=== PATIENT | female | born 1955 | race Caucasian/White ===

== ENCOUNTER → 2024-07-13 | Outpatient (CLI) | payer MEDICARE, MEDICAID, SELFPAY ==
[2024-07-13 15:07] LABS: Collection Type, Urine Clean Catch
[2024-07-13 15:31] LABS: Basophils # (Auto) 0.1 Thou/mm3 (0.0-0.2); Basophils % (Auto) 1 % (0-2.5); Eosinophils # (Auto) 0.1 Thou/mm3 (0.0-0.5); Eosinophils % (Auto) 1 % (0-10); Hematocrit 41.1 % (36.0-46.0); Immature Granulocytes % (Auto) 0 % (0-0); Immature Granulocytes Auto 0.03 Thou/mm3 (0.00-0.00); Lymphocytes # (Auto) 1.5 Thou/mm3 (1.0-4.8); Lymphocytes % (Auto) 19 % (10-50); Mean Corpuscular HGB Conc 31.6 g/dl (31.0-37.0); Mean Corpuscular Hemoglobin 27.9 pg (25.0-35.0); Mean Corpuscular Volume 88 fL (80-100); Monocytes # (Auto) 0.8 Thou/mm3 (0.0-0.8); Monocytes % (Auto) 10 % (0-12); Neutrophils # (Auto) 5.6 Thou/mm3 (1.8-7.7); Neutrophils % (Auto) 69 % (37-80); Nucleated Red Blood Cell % 0 /100 WBC (0); Platelet Count 329 Thou/mm3 (140-440); RDW Standard Deviation 51.1 fL (36.4-46.3); Red Blood Count 4.66 Miln/mm3 (4.00-5.20); White Blood Count 8.1 Thou/mm3 (3.6-11.0)
[2024-07-13 15:36] LABS: Glucose Estimated Average 114 mg/dL (80-131); Hemoglobin A1C 5.6 % Hgb (4.8-6.0); Parathyroid Hormone Intact 102.5 pg/ml (18.5-88.0)
[2024-07-13 15:40] LABS: Vitamin D 25 Hydroxy Total 49.4 ng/mL (7.3-40.2)
[2024-07-13 15:41] LABS: Alanine Aminotransferase 16 U/L (10-49); Albumin, Serum 4.7 gm/dL (3.4-4.8); Albumin/Globulin Ratio 1.6 (1.2-2.2); Alkaline Phosphatase 108 U/L (46-116); Anion Gap 8 (7-16); Aspartate Amino Transferase 20 U/L (0-34); BUN/Creatinine Ratio 13 Ratio (12-20); Bilirubin,Total 0.3 mg/dL (0.3-1.2); Blood Urea Nitrogen 15 mg/dL (9-23); Calcium 10.7 mg/dL (8.3-10.6); Calcium (Corrected) 10.7 mg/dL (8.5-10.1); Carbon Dioxide 24.8 mMol/L (20.0-31.0); Chloride 99 mMol/L (98-107); Cholesterol 150 mg/dL (132-200); Creatinine (Component) 1.2 mg/dL (0.6-1.3); Free T4 (Free Thyroxine) 1.18 ng/dL (0.89-1.76); Glucose 185 mg/dL (74-106); HDL Cholesterol 50 mg/dL (40-60); LDL Cholesterol,Calculated 76 mg/dL (0-130); Osmolality,Calculated 270 (275-295); Phosphorous 3.5 mg/dL (2.4-5.1); Potassium 4.4 mMol/L (3.4-5.1); Sodium 132 mMol/L (136-145); Total Protein 7.7 gm/dL (5.7-8.2); Triglycerides 120 mg/dL (30-150); eGFR 49 See Note
[2024-07-13 16:13] LABS: Bacteria,Urine 1+; Bilirubin,Urine Negative (Negative); Blood,Urine Trace (Negative); Clarity,Urine Turbid (Clear/Hazy); Color,Urine Yellow (Lt Yel-Yel); Glucose, Urine Negative (Negative); Ketones,Urine Negative (Negative); Leukocyte Esterase,Urine Positive (Negative); Nitrite,Urine Negative (Negative); Protein,Urine 2+ (Neg - Trace); RBC,Urine 2 /hpf (0-3); Red Blood Cell Casts,Urine 1 /hpf (0-1); Specific Gravity,Urine 1.011 (1.001-1.035); Squamous Epithelial Cell,Urine 21 /hpf (0-5); Transitional Epi Cells,Urine 4 /hpf (0-5); Urobilinogen,Urine Negative mg/dL (0.0-1.0); WBC,Urine 125 /hpf (0-5)
[2024-07-21 06:36] LABS: T3,Total* 89 ng/dL (76-181)
== END | disposition home or self-care (01) ==
LOC: COPL 14:24
PROVIDERS: PCP Internal Medicine; Referring Provider Internal Medicine Nephrology; Visit Provider Internal Medicine
DX: I12.9 Hypertensive chronic kidney disease with stage 1 through stage 4 chronic kidney disease, or unspecified chronic kidney disease (principal); E11.22 Type 2 diabetes mellitus with diabetic chronic kidney disease; N18.31 Chronic kidney disease, stage 3a; E04.1 Nontoxic single thyroid nodule; E11.65 Type 2 diabetes mellitus with hyperglycemia; E21.3 Hyperparathyroidism, unspecified; E78.00 Pure hypercholesterolemia, unspecified; D75.1 Secondary polycythemia; E55.9 Vitamin D deficiency, unspecified
CPT/HCPCS: 36415; 80053; 80061; 80069; 81001; 82306; 83036; 83970; 84436; 84439; 84443; 84480; 85025

== ENCOUNTER 2024-11-30 10:27 | Inpatient (IN) | payer MEDICARE, MEDICAID, SELFPAY ==
[2024-11-30] VITALS (7 sets, daily range): BP systolic 141–166; BP diastolic 74–89; PULSE 96–102; RESP 18–94; TEMP 36.7–36.8; O2SAT 90–96; BMI 22.5
--- NOTE | 2024-11-30 10:36 | XR_ITS ---
Examination: CT brain head without contrast. 2-D sagittal coronal reconstructions Date and time of exam:November 30, 2024 1046 hours Comparison July 09, 2020 INDICATIONS: Loss of consciousness today CTDI: vol (mGy):47.4 DLP: (mGycm):1103 Technique: Multiple CT axial sections of the brain have been obtained, 5 mm slice thickness. Contrast has not been administered. 2-D sagittal, coronal reconstructions have been obtained Low dose protocols were performed. One or more of the following dose reduction techniques were used; automated exposure control, adjustment of the mA and/or KV according to patient size, use of iterative reconstruction technique. Findings: No significant ventricular enlargement. Intra-axial or extra-axial hemorrhage density is not seen. No mass effect or midline shift Basal cisterns are not remarkable. Fourth ventricle is midline. Cranial vault intact. Impression: Negative for acute hemorrhage, mass effect or midline shift Advise clinical correlation and follow-up accordingly
--- NOTE | 2024-11-30 10:36 | XR_ITS ---
Examination: AP chest single view Technique one AP portable upright chest single view Exam date and time: November 30, 2024, 10:11 AM Comparison January 02, 2019 INDICATIONS: Onset chest pain today FINDINGS: Normal heart size Mild accentuation basilar bronchovascular markings. 3 cm pulmonary mass irregular margins right upper lobe IMPRESSION: Recommend CT chest post intravenous contrast follow-up to confirm 3 cm pulmonary mass right upper lobe, differential would include lung carcinoma
--- NOTE | 2024-11-30 10:36 | EKG_ITS ---
[facility] Test Date: 2024-11-30 Pat Name: LINNEA BUNDY Department: Room: - Gender: Female [employer]: : 1955 Requested By: Maxi Rico Order Number: [id number] Reading MD: Maxi Rico Measurements Intervals [place] Rate: 90 P: 44 KS: 148 QRS: 31 QRSD: 85 T: 62 QT: 364 QTc: 447 Interpretive Statements SINUS RHYTHM Compared to ECG 07/09/2020 18:59:28 No significant changes /store/S0/[id number].pdf
--- NOTE | 2024-11-30 10:59 | PD.EDWEAK ---
ED Weakness RME/HPI General Chief complaint: Weakness Stated complaint: WEAKNESS AND NAUSEA Time Seen by Provider: 11/30/24 10:36 Arrival date/time: 11/30/24 10:27 RME / HPI RME / HPI Narrative: DR. HARPER MAIN ED EVALUATION: 69 year old female presents to the Emergency Department [facility] with complaint of more generalized weakness onset 2 months but worse in the last week. She states that both her legs give out. She mentions that she started taking Ativan last month because they discontinued Prozac. 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 She states that when she is stressed her speech worsens. Patient denies any of the following: cough, runny nose, shortness of breath, chest pain, swallowing problems, nausea, vomiting, diarrhea, or any other symptoms at this time. 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 Has one kidney. Social Hx: Former cigarette smoker, she states she quit when she had her stroke back in 07/09/2020. No alcohol or substance use. Related Data Home Medications ?Medication ?Instructions ?Recorded ?Confirmed alprazolam 1 mg tablet 1 mg PO QID PRN Anxiety 01/02/19 11/30/24 diltiazem HCl 180 mg 180 mg PO QDAY 01/02/19 11/30/24 capsule,extended release 24 hr, controlled fluoxetine 40 mg capsule 40 mg PO QDAY 01/02/19 11/30/24 glyburide 5 mg tablet 5 mg PO BID 01/02/19 11/30/24 losartan 100 mg tablet 100 mg PO QDAY 01/02/19 11/30/24 metformin 1,000 mg tablet 1,000 mg PO BID 01/02/19 11/30/24 prochlorperazine maleate 10 mg 10 mg PO QID PRN Nausea And 01/02/19 11/30/24 tablet Vomiting albuterol sulfate 90 mcg/actuation 2 puff inhalation QID PRN 07/09/20 11/30/24 aerosol inhaler (Ventolin HFA) Shortness Of Breath Or Wheezing diphenoxylate-atropine 2.5 1 tab PO TID PRN Diarrhea 07/09/20 11/30/24 mg-0.025 mg tablet atorvastatin 40 mg tablet 40 mg PO QDAY 07/11/20 11/30/24 vitamin B complex-vitamin C-folic 1 tab PO QDAY 11/30/24 11/30/24 acid 0.8 mg tablet (Nephro-Bella) Previous Rx's ?Medication ?Instructions ?Recorded aspirin 325 mg tablet 325 mg PO QDAY #30 tabs 07/11/20 Allergies Allergy/AdvReac Type Severity Reaction Status Date / Time amlodipine Allergy Verified 07/09/20 23:59 azithromycin Allergy Verified 07/09/20 23:53 hydralazine Allergy Verified 07/09/20 23:59 iodine Allergy Verified 07/10/20 00:00 levofloxacin (From Levaquin) Allergy Verified 07/10/20 00:00 metoprolol Allergy Verified 07/09/20 23:58 nitrofurantoin Allergy Verified 07/10/20 00:01 Penicillins Allergy Verified 07/09/20 23:53 simvastatin Allergy Verified 07/09/20 23:59 fluoroquinolones Allergy Uncoded 07/09/20 23:58 Review of Systems Review of Systems Systems Reviewed: All systems reviewed, normal except as documented Narrative Review of Systems: Constitutional: DENIES: fevers; Eyes: DENIES: loss of vision; Head/Ear/Nose: DENIES: loss of hearing. Throat: DENIES: dysphagia. Cardiovascular: DENIES: chest pain, dyspnea, or syncope. Respiratory: DENIES: shortness of breath; Gastrointestinal: DENIES: rectal bleeding or melena. 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 Allergic/Immunologic: DENIES: urticaria (hives). Past Medical History Past Medical History CARDIAC: Positive Hypertension; Negative Congestive Heart Failure RESPIRATORY: Negative Chronic Obstructive Pulmonary Disease (COPD) GASTROINTESTINAL: Positive Gall Bladder Disease and Hiatal Hernia GENITOURINARY: Negative Renal Disease MUSCULOSKELETAL: Positive Arthritis ENDOCRINE: Positive Diabetes Mellitus Type 2; Negative Diabetes Mellitus Type 1 PSYCHO/SOCIAL: Positive Anxiety OTHER HISTORY: Positive Falls and Blood Transfusion Reaction; Negative Anesthesia Reactions or Chemotherapy Surgical History SURGICAL: Positive Abdominal Surgery, Nephrectomy (right) and Tubal Ligation Social History SMOKING STATUS: Never smoker SUBSTANCE USE: does not use ED Exam Narrative Physical exam: Physical Exam: General: The vital signs were reviewed. The patient is non-toxic, in no apparent distress and appears healthy with a patent airway, no respiratory distress and has no apparent circulatory problems. Head & Scalp: Normocephalic, atraumatic. Face: Appears normal and is without lesions, deformity. Ears: Left external pinna appears normal. Right external pinna appears normal. Eyes: The sclera is anicteric. No obvious photophobia. The Left and Right Orbit/Lid/Conjunctiva appears normal without swelling, discoloration or injection. Nose: The nose is without deformity, discharge or tenderness; Throat: Appears normal. The mucous membranes are pink and moist without exudates, redness or mass seen. The tongue appears normal. Neck: The neck is supple and no apparent mass or adenopathy. Chest: The chest wall is normal in size and symmetry and has no chest wall tenderness or crepitus. The patient displays normal ventilator effort without retractions, accessory muscle use and has adequate air movement bilaterally with no wheezes and no rales. Cardiovascular: Regular rate and rhythm; No murmurs, rubs, or gallops; Gastrointestinal: The abdomen appears normal. No obvious hernias or mass. The abdomen is soft and benign, non-distended, with no pain, no guarding and no rebound tenderness. Bowel sounds are present and normal sounding. No CVA tenderness. Genitourinary: Back/Spine: Normal inspection Extremities/Musculoskeletal/lymphatic: The bilateral upper and lower extremities are warm. There is no evidence of arterial insufficiency. There is no evidence of venous insufficiency/edema. The patient spontaneously moves bilateral upper and lower extremities with no pain and no limitation of movement. There is no apparent, injury or trauma. Skin: The skin is warm, dry and intact. No rashes. No petechia. No purpura. No abnormal bruising. The color is appropriate with no cyanosis. Mental status/Psychiatric: Mental status is appropriate for age. The patient has no apparent delusions, visual hallucinations, no apparent audible hallucinations. The patient has no apparent suicidal thoughts/ideation and no apparent homicidal thoughts/ideation. Neurological: Patient has slurred speech which is chronic from her old stroke. Otherwise: The patient is awake, alert, interactive, cordial, cooperative and is oriented to name and situation. The patient follows commands and answers historical question with no impairment. There is no visual disturbance apparent. The pupils are equal and reactive bilaterally with normal eye movements and no diplopia The bilateral upper and lower extremities have normal strength, normal range of motion and normal functioning. The gait, station and balance not tested due to weakness Course Quality Measures none Orders Category Date Time Status Bedside Blood Glucose NOW Care 11/30/24 10:[address] Screening NOW Care 11/30/24 15:00 Active EKG (ED ONLY) *Do not use* NOW Care 11/30/24 10:[address] chest abdomen pelvis wo Stat Exams 11/30/24 16:[address] head/brain wo con Stat Exams 11/30/24 10:36 Completed EKG (ED Only) Stat Exams 11/30/24 10:36 Draft XR chest 1V portable Stat Exams 11/30/24 10:36 Completed Alcohol, Blood Medical Stat Lab 11/30/24 11:42 Completed Ammonia Stat Lab 11/30/24 11:42 Completed B-Type Natriuretic Peptide Stat Lab 11/30/24 11:04 Completed Blood Culture (Lab) Stat Lab 11/30/24 11:04 Received CBC Stat Lab 11/30/24 11:04 Completed Comprehensive Metabolic Panel Stat Lab 11/30/24 11:42 Completed Drug Screen,Urine Stat Lab 11/30/24 14:07 Completed Lactate (Lactic Acid) Stat Lab 11/30/24 11:04 Completed Lactic Acid, 3 HR Stat Lab 11/30/24 14:43 Completed Procalcitonin Stat Lab 11/30/24 11:42 Completed Prothrombin Time with INR Stat Lab 11/30/24 11:04 Completed Troponin I Stat Lab 11/30/24 11:42 Completed Type and Screen Stat Lab 11/30/24 11:42 Completed Urinalysis Stat Lab 11/30/24 14:07 Completed Urinalysis, C/S if Indicated Stat Lab 11/30/24 14:07 Completed Venous Blood Gas Stat Lab 11/30/24 11:04 Completed Sodium Chloride 0.9% 1000 ml [Ns] 1,000 ml Med 11/30/24 15:00 Active IV 150 mls/hr Sodium Chloride 0.9% 1000 ml [Ns] 1,000 ml Med 11/30/24 15:00 Discontinued IV 999 mls/hr Vital Signs Vital signs: Vital Signs Temperature 98.1 F 11/30/24 10:30 Pulse Rate 102 H 11/30/24 10:30 Respiratory Rate 18 11/30/24 10:30 Blood Pressure 145/74 H 11/30/24 10:30 Pulse Oximetry (%) 95 11/30/24 10:30 Oxygen Delivery Method Room Air 11/30/24 10:30 Weakness MDM Narrative MDM Narrative:: Patient 69-year-old who comes in with progressive weakness over the last month where now her knees are buckling she is fallen twice and is unable to walk with safety. She had no loss of conscious. She has had some nausea. Medical workup for weakness was initiated which revealed the following white count of 10.2 hemoglobin 14.4 MCV of 88 PT 10.4 INR 0.9 venous blood gas pH is 741 pCO2 of 47 sodium 132 potassium 4.3 chloride 100 CO2 was 20.6 BUN 10 creatinine 0.9 lactic acid was initially 3.8 and came down to 1.5 on a follow-up recheck. Ammonia level was negative troponin was negative BNP was negative procalcitonin was negative urinalysis Specimen was negative. Urine drug screen is negative ethyl alcohol is negative head CT revealed no acute. Chest x-ray reveals no pneumonia. The cause of this patient's elevated lactic acid was unclear but it spontaneously improved. Went back to the room patient informs me that many years ago she had a kidney cancer that was had a right nephrectomy. She has been in remission since that time. She incidentally also has a questionable right upper lobe mass age indeterminant. Because it is unclear why she is having progressive weakness and her labs are normal there is no obvious source of infection but get a CT of the chest abdomen pelvis to further evaluate the mass in the right lung and see if there is any evidence of neoplastic issues that may be causing weakness. While clinically she is able to move her arms and legs and there is no obvious focal weakness. It is possible she has some new onset neurological condition has been undiagnosed. Will ambulate the patient and see if she is got her strength back after some fluids and reevaluate after the CAT scan results come back. CTA chest and pelvis with contrast was ordered but we found that she is allergic to contrast was changed with noncontrast scan. CT report reveals>> Patient attempted to ambulate reveals>>> At [address] the [address] test. It is unclear while this patient is too weak to walk CT is still pending as of 1715 hrs. Most likely care of this patient will go to the oncoming doctor to dispo either should be admitted for some neurological etiology for weakness which is uncertain. Will see if the CT gives another answer or she will remain in the ER for intermediate placement. She has started on lorazepam the last month for nighttime sleep unclear how this relates to the current inability to walk with bilateral as she has no sedation in the room at the time of our evaluations. Care to the [address] Bermudez to find a safe dispo plan for this patient she clearly cannot go home at this time she is too weak to walk and unable to care for self. Also the patient has a borderline sinus tachycardia of unclear etiology lactic acid is improving. Deanne Andrews am scribing for and in the presence of Dr. Harper. 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 Has one kidney. How is presenting disease/condition affected by chronic disease/condition?: uneffected by Evaluation data The following diagnostics were reviewed and interpreted by me:: lab results, radiology exam(s) and EKG tracing(s) (EKG#1: EKG at 1204 hours. Interpreted by me: sinus rhythm, rate 90, no STEMI) Lab and/or radiology exams considered but not ordered:: none Interpretation Summary: See above under MDM narrative. RADIOLOGY Procedure(s): XR chest 1V portable Accession Number(s): [id number] cc: Maxi Harper MD; Nato Hong MD~ Examination: AP chest single view Technique one AP portable upright chest single view Exam date and time: November 30, 2024, 10:11 AM Comparison January 02, 2019 INDICATIONS: Onset chest pain today FINDINGS: Normal heart size Mild accentuation basilar bronchovascular markings. 3 cm pulmonary mass irregular margins right upper lobe IMPRESSION: Recommend CT chest post intravenous contrast follow-up to confirm 3 cm pulmonary mass right upper lobe, differential would include lung carcinoma Dictated By: Nato Hong MD Procedure(s): CT head/brain wo con Accession Number(s): [id number] cc: Maxi Harper MD; Nato Hong MD~ Examination: CT brain head without contrast. 2-D sagittal coronal reconstructions Date and time of exam:November 30, 2024 1046 hours Comparison July 09, 2020 INDICATIONS: Loss of consciousness today CTDI: vol (mGy):47.4 DLP: (mGycm):1103 Technique: Multiple CT axial sections of the brain have been obtained, 5 mm slice thickness. Contrast has not been administered. 2-D sagittal, coronal reconstructions have been obtained Low dose protocols were performed. One or more of the following dose reduction techniques were used; automated exposure control, adjustment of the mA and/or KV according to patient size, use of iterative reconstruction technique. Findings: No significant ventricular enlargement. Intra-axial or extra-axial hemorrhage density is not seen. No mass effect or midline shift Basal cisterns are not remarkable. Fourth ventricle is midline. Cranial vault intact. Impression: Negative for acute hemorrhage, mass effect or midline shift Advise clinical correlation and follow-up accordingly Dictated By: Nato Hong MD Medications / Prescriptions Medications or Prescriptions considered but not ordered:: none Medication administrations:: Medication Administration History Sodium Chloride (Ns) 1,000 mls @ 150 mls/hr IV .Q6H40M ONE Stop: 11/30/24 21:39 Discontinued Medications Sodium Chloride (Ns) 1,000 mls @ 999 mls/hr IV .Q1H1M ONE Stop: 11/30/24 16:00 see above if any Consultations Consultation(s) initiated? (list below): Yes Consultation #1 (Physician, Specialty, Details): Discussed test HPI, PMHx, lab, radiology results and/or management with hospitalist Dr. Tyler. Will admit for further evaluation and management. Accepts patient for admission. Time: 17:23 Diagnosis Weakness Differential Diagnosis: acute myocardial infarction, anemia, sepsis and dehydration Most likely diagnosis given after review of the tests above:: See below Admission Indicated Admission indicated?: indicated Admission Request Was there a request for admission?: Yes Admission Attestation Admission request attestation: Discussed case with [] from Hospitalist service regarding admission. Discussed patients ED course, exam findings, labs, and radiology results. The Hospitalist [agrees,declines] to accept the patient for admission. Disposition Plan Disposition Plan: Admit Discharge Plan Prescriptions/Referrals Prescriptions/Med Rec: No Action fluoxetine 40 mg Capsule 40 mg PO QDAY glyburide 5 mg Tablet 5 mg PO BID alprazolam 1 mg Tablet 1 mg PO QID PRN (Reason: Anxiety) prochlorperazine maleate 10 mg Tablet 10 mg PO QID PRN (Reason: Nausea And Vomiting) metformin 1,000 mg Tablet 1,000 mg PO BID losartan 100 mg Tablet 100 mg PO QDAY diltiazem HCl 180 mg Capsule,Ext.Rel 24h Degradable 180 mg PO QDAY Rx Instructions: diltiazem cd albuterol sulfate [Ventolin HFA] 90 mcg/actuation Hfa Aerosol Inhaler 2 puff INHALATION QID PRN (Reason: Shortness Of Breath Or Wheezing) diphenoxylate-atropine 2.5-0.025 mg Tablet 1 tab PO TID PRN (Reason: Diarrhea) aspirin 325 mg tablet 325 mg PO QDAY Qty: 30 0RF atorvastatin 40 mg tablet 40 mg PO QDAY Nephro-Bella 0.8 mg tablet 1 tab PO QDAY Referrals: No Primary/Family,Physician [Primary Care Provider] - In 1 week Problem List Clinical Impression: Weakness, Unable to ambulate, History of CVA in adulthood, Elevated lactic acid level, Sinus tachycardia Patient/Caregiver Discharge Instructions Print Language: Mauritanian
[2024-11-30 11:15] LABS: Base Excess, Venous -1 (-3-3); O2 Saturation, Venous 82 % (96-97); PCO2, Venous 37 mmHg (36-56); PO2, Venous 43 mmHg (15-58); pH, Venous 7.41 (7.33-7.66)
[2024-11-30 11:17] LABS: Basophils # (Auto) 0.1 Thou/mm3 (0.0-0.2); Basophils % (Auto) 1 % (0-2.5); Eosinophils % (Auto) 0 % (0-10); Hematocrit 42.1 % (36.0-46.0); Hemoglobin 14.4 g/dL (12.0-16.0); Immature Granulocytes % (Auto) 0 % (0-0); Immature Granulocytes Auto 0.04 Thou/mm3 (0.00-0.00); Lymphocytes # (Auto) 1.3 Thou/mm3 (1.0-4.8); Lymphocytes % (Auto) 12 % (10-50); Mean Corpuscular HGB Conc 34.2 g/dl (31.0-37.0); Mean Corpuscular Volume 88 fL (80-100); Monocytes # (Auto) 0.9 Thou/mm3 (0.0-0.8); Monocytes % (Auto) 8 % (0-12); Neutrophils % (Auto) 78 % (37-80); Nucleated Red Blood Cell % 0 /100 WBC (0); Platelet Count 347 Thou/mm3 (140-440); RDW Standard Deviation 42.9 fL (36.4-46.3); White Blood Count 10.2 Thou/mm3 (3.6-11.0)
[2024-11-30 11:32] LABS: INR 0.9 (0.9-1.3); Prothrombin Time 10.4 Seconds (9.0-12.2)
[2024-11-30 12:17] LABS: Ammonia < 10 uMol/L (11-32)
[2024-11-30 12:21] LABS: Alanine Aminotransferase 21 U/L (10-49); Albumin, Serum 4.6 gm/dL (3.4-4.8); Albumin/Globulin Ratio 1.6 (1.2-2.2); Alcohol, Blood Medical < 3.0 mg/dL (0-10.0); Alkaline Phosphatase 81 U/L (46-116); Anion Gap 11 (7-16); Aspartate Amino Transferase 25 U/L (0-34); BUN/Creatinine Ratio 11 Ratio (12-20); Bilirubin,Total 0.5 mg/dL (0.3-1.2); Blood Urea Nitrogen 10 mg/dL (9-23); Calcium 10.4 mg/dL (8.3-10.6); Calcium (Corrected) 10.4 mg/dL (8.5-10.1); Carbon Dioxide 20.6 mMol/L (20.0-31.0); Chloride 100 mMol/L (98-107); Creatinine (Component) 0.9 mg/dL (0.6-1.3); Estimated Creatinine Clearance 59.5 mL/min (>60); Globulin 2.9 gm/dL (2.3-3.5); Glucose 133 mg/dL (74-106); Osmolality,Calculated 265 (275-295); Potassium 4.3 mMol/L (3.4-5.1); Procalcitonin 0.11 ng/ml (0.0-0.49); Sodium 132 mMol/L (136-145); Total Protein 7.5 gm/dL (5.7-8.2); Troponin I < 0.020 ng/mL (0.0-0.045); eGFR > 60 See Note
[2024-11-30 12:33] LABS: Lactate (Lactic Acid) 3.8 mMol/L (0.4-2.0)
[2024-11-30 13:07] LABS: B-Type Natriuretic Peptide 20 pg/mL (0-100)
[2024-11-30 14:13] LABS: Collection Type, Urine Clean Catch
[2024-11-30 14:21] LABS: Bilirubin,Urine Negative (Negative); Blood,Urine Negative (Negative); Clarity,Urine Clear (Clear/Hazy); Color,Urine Lt-Yellow (Lt Yel-Yel); Culture Indicated,Urine Not Indicated; Glucose, Urine Negative (Negative); Ketones,Urine Negative (Negative); Leukocyte Esterase,Urine Negative (Negative); Nitrite,Urine Negative (Negative); Protein,Urine 2+ (Neg - Trace); RBC,Urine 1 /hpf (0-3); Specific Gravity,Urine 1.008 (1.001-1.035); Squamous Epithelial Cell,Urine 1 /hpf (0-5); Urobilinogen,Urine Negative mg/dL (0.0-1.0); WBC,Urine 1 /hpf (0-5)
[2024-11-30 14:32] LABS: Reflex Lactate? Y
[2024-11-30 14:41] LABS: Amphetamine/Methamp Scrn,U Negative (Negative); Barbiturate Screen,Urine Negative (Negative); Benzodiazepines Screen,Urine Negative (Negative); Benzoylecgonine Screen, Ur Negative (Negative); Fentanyl Screen,Urine Negative (Negative); Opiate Screen,Urine Negative (Negative); THC Screen,Urine Negative (Negative)
[2024-11-30 14:56] LABS: Lactic Acid, 3 HR 1.5 mMol/L (0.4-2.0)
--- NOTE | 2024-11-30 16:48 | XR_ITS ---
Examination: CT chest, without intravenous contrast. CT abdomen, without intravenous contrast. CT pelvis, without intravenous contrast. 2-D sagittal and coronal reconstructions. 3-D reconstructions. Date and time of exam:November 30, 2024 at 1749 hours INDICATIONS: Abdominal pain, weakness in the legs 3 months, history right renal cell carcinoma post nephrectomy, chest pain today, 3 cm pulmonary mass in the right upper lobe on chest x-ray today CTDI vol (mgy) 8.47 DLP (MGycm)597 Technique: Multiple CT images, 3.0 mm slice thickness, obtained chest, abdomen, pelvis, with the high-resolution 64 slice scanner.. Sagittal and coronal 2-D reconstructions are obtained. 3-D reconstructions Low dose protocols were performed. One or more of the following dose reduction techniques were used; automated exposure control, adjustment of the mA and/or KV according to patient size, use of iterative reconstruction technique. Findings: 3 cm enlarged right tracheobronchial lymph node 12 mm lymph node in the aortopulmonary window Mild enlargement cardiac contour Small pericardial effusion 3.4 cm pulmonary mass in the right upper lobe, spiculated margins, axial image 113, 12 mm pulmonary nodule left lower lobe axial image 162 8mm pulmonary nodule right lower lobe image 210 No lobar pneumonia No visualized liver or splenic lesion Absent gallbladder Minimal nodular thickening left adrenal gland 2 mm 4 mm 2 mm left renal calculi No solid left renal mass lesion Absent right kidney Aortic calcification no aneurysmal dilatation Normal appendix No bowel obstruction Atrophic uterus Urinary bladder are intact Grade 1 and spondylolisthesis L4 on L5 Prominent osteopenia IMPRESSION: Tumor mediastinal lymphadenopathy. Pulmonary lung masses, the largest 3.4 cm in the right upper lobe, highest on the differential list is lung carcinoma with metastatic mediastinal lymphadenopathy Nonobstructing left renal calculi
[2024-11-30] MEDS: SODIUM CHLORIDE 0.9% 1000 ML 1,000 ML 999 ML IV (18:25)
[2024-11-30] MEDS: SODIUM CHLORIDE 0.9% 1000 ML 1,000 ML 150 ML IV (18:29)
[2024-11-30 19:03] LABS: Creatine Kinase 40 U/L (34-171); Magnesium 1.5 mg/dL (1.6-2.6); Phosphorous 3.2 mg/dL (2.4-5.1); Thyroid Stimulating Hormone 0.48 uIU/mL (0.55-4.78)
[2024-11-30] MEDS: PANTOPRAZOLE INJ 40 MG VIAL IVP (19:15)
--- NOTE | 2024-11-30 19:30 | PC.NURSE ---
Report called n given to Ryan CROCKER.
[2024-11-30] MEDS: ATORVASTATIN CALCIUM 20 MG TABLET 40 MG PO (20:38)
[2024-11-30] MEDS: HEPARIN SOD INJ 5000 UNIT/ML VIAL SC (20:38)
--- NOTE | 2024-11-30 20:52 | ESHP_ITS ---
<Statement entered by Efren Woodward MD - 11/30/24 21:30> This patient is a 69-year-old female with past medical history of thyroid nodules, CVA without residual deficit on aspirin, breast lumpectomy in the past, right kidney removal due to RCC presented to the ED with generalized weakness and lower extremity progressive weakness. She mentioned that she was taking Prozac and her anxiety was not getting controlled therefore her PCP added Ativan recently. This morning, patient fell and her legs gave out and has been feeling weak. Of note, patient has a history of possible infection 2 weeks ago likely abdominal. She does have a history of chronic slurred speech. Labs showed stable white count. Chemistry panel showed mild hyponatremia. Kidney functions unremarkable. Lactic acid initially was elevated down trended to 1.5. Magnesium 1.5. Creatinine kinase unremarkable. TSH 0.48. PTH intact was ordered due to elevated corrected calcium at 10.4. Head CT showed no acute changes. CT chest and chest x-ray was concerning for pulmonary lung masses largest 3.4 cm right upper lobe. Multiple nodules. Small pericardial effusion. Patient is agreeable to for biopsy of the lung if needed. She also was found to have grade 1 spondylolisthesis L4 on L5. We admit the patient for workup of bilateral lower extremity weakness. PT evaluation has been ordered. Neurology has been consulted. Will likely follow-up with MRI brain per neurology recommendations. Home medications were reconciled. MRI lumbar spine was ordered to evaluate compression of the spine. Will likely follow-up with neurology recommendations. Orthostatic vitals were ordered. Held morning heparin for possible biopsy of lung tomorrow morning.All labs and orders were reviewed. I saw and examined the patient, and I agree with current management stated by Dr Hakan MD,PGY1. Plan of care was discussed with the attending physician and resident physician. Disclaimer: Despite multiple revisions, due to the dictation software being used, the document bellow may not be free of grammatical errors including phonetic/typographic errors. However, this does not deter from our commitment to providing health care in the patient's best interest in mind. Dr. Nona MD, PGY 2 Documentation for date of: 11/30/24 HPI History of Present Illness History of present illness: Ms. Vega is a 69-year-old female medical history significant for hypertension, hyperlipidemia, COPD, type 2 diabetes, history of renal cell carcinoma status post right nephrectomy, history of ischemic stroke in 2020 presents to the ED complaining of progressive bilateral weakness in lower extremities for the past 2 weeks and has been using a walker for 2 weeks. Patient states that for the past 1 week it has worsened to the point where she had 2 ground-level falls. Patient states that she feels like her legs gave up on her and she loses her balance, denies syncopal episodes or dizziness. Patient states that when she gets really anxious she also experiences slurred speech and this is is a residual deficit from her stroke. Patient also states that she was on Prozac for a while which she was experiencing a lot of side effects so her primary care switched her to Ativan 0.5 mg about 2 to 3 weeks ago. Patient states she has a history of right renal cell carcinoma and she underwent right nephrectomy, also found a benign mass in the left breast status post lumpectomy, and thyroid nodules that were biopsied and findings were benign. 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 ED course In the ED initial vitals include blood pressure 145/74, pulse 102, respirations 18 CBC is unremarkable, VBG is within normal limits CMP: Sodium 132, glucose 133, lactic acid 3.8 repeat lactic acid is 1.5, calcium 10.4, magnesium 1.5, TSH 0.48 Chest x-ray: 3 cm pulmonary mass in the right upper lobe CT of head: Negative for acute hemorrhage, mass effect or midline shift CT chest/abdomen/pelvis: Pulmonary lung masses, the largest 3.4 cm in the right upper lobe, highest on the differential list is lung carcinoma with metastatic mediastinal lymphadenopathy, 4, 2, 2 mm renal calculi 12mm pulmonary nodule in the left lower lobe and 8mm pulmonary nodule in the right lower lobe EKG: Normal sinus rhythm In the ED pt received 2L NS PMH: Hypertension, hyperlipidemia, COPD, type 2 diabetes, history of right renal carcinoma, history of ischemic CVA PSH: Right nephrectomy, left breast lumpectomy SH: Quit smoking cigarettes in 2019, denies drugs or alcohol Home Meds: Diltiazem, Trelegy, aspirin 81 mg, Ativan 0.5 mg at bedtime, atorvastatin, losartan and, metformin and 1000 mg twice daily, glyburide 5mg BID Review of Systems Review of Systems Systems Reviewed: All systems reviewed, normal except as documented Exam Vital Signs Temp Pulse Resp BP Pulse Ox O2 Del Method 98.3 F 101 H 24 H 166/89 H 92 L Room Air 11/30/24 18:39 11/30/24 18:39 11/30/24 18:39 11/30/24 18:39 11/30/24 18:39 11/30/24 18:39 Narrative Exam GENERAL: A&Ox3 . Awake, Not in acute distress NEURO: no focal neurological deficits HEENT: Atraumatic, Normocephalic. mucous membranes moist. Eyes open, symmetrical, & clear HEART: Normal Heart Sounds LUNGS: Clear to auscultation with no wheezing or crackles. ABDOMEN: soft, non-distended, non-tender, bowel sounds heard, no guarding or rebound tenderness SKIN: No Rash or ecchymoses EXTREMITIES: No edema, tenderness, able to move all 4 extremities, pedal pulses palpated Results: Labs 12/01/24 05:17 12/01/24 05:17 Labs: Short CBC 11/30/24 Range/Units 11:04 WBC 10.2 (3.6-11.0) Thou/mm3 Hgb 14.4 (12.0-16.0) g/dL Hct 42.1 (36.0-46.0) % Plt Count 347 (140-440) Thou/mm3 BMP 11/30/24 11:42 Sodium 132 L Potassium 4.3 Chloride 100 Carbon Dioxide 20.6 BUN 10 Creatinine 0.9 Glucose 133 H Calcium 10.4 Cardiac Enzymes 11/30/24 11/30/24 Range/Units 11:42 18:05 Total Creatine Kinase 40 (34-171) U/L Troponin I < 0.020 (0.0-0.045) ng/mL Liver Function 11/30/24 Range/Units 11:42 Total Bilirubin 0.5 (0.3-1.2) mg/dL AST 25 (0-34) U/L ALT 21 (10-49) U/L Alkaline Phosphatase 81 (46-116) U/L Albumin 4.6 (3.4-4.8) gm/dL Urine 11/30/24 Range/Units 14:07 Urine Color Lt-Yellow (Lt Yel-Yel) Urine Clarity Clear (Clear/Hazy) Urine pH 6.0 (5.0-7.0) Ur Specific [place] 1.008 (1.001-1.035) Urine Protein 2+ A (Neg - Trace) Urine Glucose (UA) Negative (Negative) ABG Interpretation ABG results: 11/30/24 11:04 VBG pH 7.41 VBG pCO2 37 VBG pO2 43 VBG Base Excess -1 Quality Measures Quality Measures none Advance care planning discussed with:: patient Medications Home Medications and Allergies Home Medications ?Medication ?Instructions ?Recorded ?Confirmed ?Type diltiazem HCl 180 mg 180 mg PO QDAY 01/02/1911/08 History capsule,extended release 24 hr, controlled fluoxetine 40 mg capsule 40 mg PO QDAY 01/02/1911/30 History glyburide 5 mg tablet 5 mg PO BID 01/02/19 5 History metformin 1,000 mg tablet 1,000 mg PO BID 01/02/19 History prochlorperazine maleate 10 mg 10 mg PO QDAY PRN Nause a And 01/02/19 12/01/24 History tablet Vomiting atorvastatin 40 mg tablet 40 mg PO QDAY 07/11/2011/30 History vitamin B complex-vitamin C-folic 1 tab PO QDAY 11/30/24 History acid 0.8 mg tablet (Nephro-Bella) amlodipine 10 mg tablet 10 mg PO QDAY 12/01/2412/01 History aspirin 81 mg tablet,delayed 81 mg PO QDAY 12/01/24 History release (Adult Low Dose Aspirin) fluticasone fur. 200 mcg-umeclid 1 inh inhalation QDAY 12/01/24 12/01/24 History 62.5 mcg-vilant 25 mcg inhalat.powder (Trelegy Ellipta) fluticasone propionate 50 1 spray intranasal Q12H PRN nasal 12/01/24 12/01/24 History mcg/actuation nasal congestion spray,suspension loratadine 10 mg tablet (Allergy 10 mg PO QDAY PRN all ergic symptoms 12/01/24 12/01/24 History Relief (loratadine)) lorazepam 0.5 mg tablet 0.5 mg PO HS PRN anxiety 12/01/24 History montelukast 10 mg tablet 10 mg PO QDAY 12/01/2412/01 History Allergies Allergy/AdvReac Type Severity Reaction Status Date / Time amlodipine Allergy Verified 07/09/20 23:59 azithromycin Allergy Verified 07/09/20 23:53 hydralazine Allergy Verified 07/09/20 23:59 iodine Allergy Verified 07/10/20 00:00 levofloxacin (From Levaquin) Allergy Verified 07/10/20 00:00 metoprolol Allergy Verified 07/09/20 23:58 nitrofurantoin Allergy Verified 07/10/20 00:01 Penicillins Allergy Verified 07/09/20 23:53 simvastatin Allergy Verified 07/09/20 23:59 fluoroquinolones Allergy Uncoded 07/09/20 23:58 Visit Medications Acetaminophen (Acetaminophen 325 Mg Tablet) 650 mg PO Q6H PRN PRN Reason: Fever >100.4 Stop: 12/30/24 17:53 Acetaminophen (Acetaminophen 325 Mg Tablet) 650 mg PO Q6H PRN PRN Reason: PAIN SCALE 1-3 (mild Stop: 12/30/24 17:53 Alprazolam (Alprazolam 0.25 Mg Tablet) 1 mg PO QID PRN PRN Reason: Anxiety Stop: 12/05/24 17:58 Aspirin (Aspirin 325 Mg Tablet) 325 mg PO QDAY [facility]AI Stop: 12/31/24 08:59 Atorvastatin Calcium (Atorvastatin Calcium 20 Mg Tablet) 40 mg PO HS TAI Stop: 12/30/24 20:59 Last Admin: 11/30/24 20:38 Dose: 40 mg Diltiazem HCl (Diltiazem Cd 180 Mg Capcr) 180 mg PO QDAY [facility]AI Stop: 12/31/24 08:59 Fluoxetine HCl (Fluoxetine Hcl 10 Mg Capsule) 40 mg PO QDAY [facility]AI Stop: 12/31/24 08:59 Heparin Sodium (Porcine) (Heparin Sod Inj 5000 Unit/Ml Vial) 5,000 unit SC BID TAI Stop: 12/14/24 20:59 Last Admin: 11/30/24 20:38 Dose: 5,000 unit Sodium Chloride (Ns) 1,000 mls @ 150 mls/hr IV .Q6H40M ONE Stop: 11/30/24 21:39 Last Admin: 11/30/24 18:29 Dose: 150 mls/hr Losartan Potassium (Losartan Potassium 25 Mg Tablet) 100 mg PO QDAY [facility] Stop: 12/31/24 08:59 Ondansetron HCl (Ondansetron Inj 2 Mg/Ml Inj 2 Ml) 4 mg IV Q6H PRN; Protocol PRN Reason: NAUSEA OR VOMITING Stop: 12/30/24 17:53 Pantoprazole Sodium (Pantoprazole Inj 40 Mg Vial) 40 mg IVP QDAY [facility] Stop: 12/30/24 17:59 Last Admin: 11/30/24 19:15 Dose: 40 mg Vitamin B Complex/Vit C/Folic Acid (Vit B12/Vit C/Fa (Nephrovite) Tablet) 1 tab PO QDAY [facility] Stop: 12/31/24 08:59 Discontinued Medications Sodium Chloride (Ns) 1,000 mls @ 999 mls/hr IV .Q1H1M ONE Stop: 11/30/24 16:00 Last Admin: 11/30/24 18:25 Dose: 999 mls/hr Losartan Potassium (Losartan Potassium 25 Mg Tablet) 100 mg PO QDAY [facility] Stop: 12/31/24 08:59 Assessment & Plan Plan Ms. Vega is a 69-year-old female medical history significant for hypertension, hyperlipidemia, COPD, type 2 diabetes, history of renal cell carcinoma status post right nephrectomy, history of ischemic stroke in 2019 presents to the ED complaining of progressive bilateral weakness in lower extremities for the past 2 weeks and has been using a walker for 2 weeks. #Lower extremities weakness, bilateral DDX: GBS, spinal stenosis, deconditioning, medication induced -although patient did not have recent URI or diarrhea like symptoms, pt has cough 2 weeks ago that resolved spontaneously -Pt starting taking ativan 2-3 weeks ago at night and pt had a fall due to legs giving up at night -CT of head is negative for hemorrhage, mass affect or midline shift Plan: -neurology consulted, appreciate recommendations -MRI or brain ordered #Pulmonary nodules, bilateral #hx. of renal cell carcinoma s/p R. nephrectomy - Pt has history of right renal cell carcinoma and underwent right nephrectomy without radiation or chemo -Pt was found to have benign thyroid and left breast nodules -CT chest/abdomen/pelvis: Pulmonary lung masses, the largest 3.4 cm in the right upper lobe, highest on the differential list is lung carcinoma with metastatic mediastinal lymphadenopathy, 12mm pulmonary nodule in the left lower lobe and 8mm pulmonary nodule in the right lower lobe Plan: -will discuss with pt about biopsy #Primary hypertension #Hyperlipidemia -resumed home antihypertensive include diltiazem 180mg and Losartan 100mg daily -Resumed home atorvastatin #Non Insulin dependent type 2 diabetes -Pt's home medications include metformin 1000mg BID and glyburide 5 mg BID -Insulin sliding scale ordered with accuchecks ACHS -A1c ordered for morning labs # Hx. of acute CVA -Pt had ischemic stroke in 07/2020 without residual deficits otherthan when she gets anxious she has slurred speech. -Pt takes statin and aspirin daily -resumed home aspirin #Hx of COPD -Pt is a former smoker and does not use home oxygen -Pt uses trelegy inhaler once daily -Duonebs ordered PRN -Supplemental O2 as needed Health Maintenance Disposition: telemetry DVT Prophylaxis: Heparin 5000 units SC Q8 hrs GI Prophylaxis: Pantoprozol-40 IV Qday Diet: Diabetic Diet Lines: Peripheral lines Code status: Full Assessment and plan discussed with my senior resident Dr. Woodward & attending physician Dr. Jayson Mcclendon (PGY-1)- Internal medicine resident Attending Provider Attestation/Addendum I have discussed and was present for the essential components of the history, physical examination, diagnosis, and treatment plan with the resident. I agree with the patient's care as documented by the resident and amended herein by me. Wale Tyler DO. Patient seen and evaluated in ED. In short, 69-year-old female with significant past medical history of CVA, hypertension, hyperlipidemia, type 2 diabetes, renal cell carcinoma status post right nephrectomy, panic disorder, left radial nerve palsy and thyroid nodules, presented to the ED for progressive bilateral lower extremity weakness over the past 2 to 4 weeks and according to her, more frequent falls. Aside from the weakness, she denied any incontinence, sensory deficits, syncopal episodes, dizziness, vision trouble etc. He does have some slurred speech according to her from her previous ischemic stroke in 2019. 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 In the ED, BP WNL, pulse 101, respiratory rate 21, afebrile, SpO2 was 90% on room air however did improve. CBC largely unremarkable, sodium noted to be 132, lactic acid was 3.8 at time of arrival however did downtrend to 1.5 with fluids. Calcium slightly elevated at 10.4. VBG unremarkable, U tox unremarkable, CT head did not demonstrate any acute intracranial pathology. Chest x-ray did however demonstrate a possible right upper lobe pulmonary mass in which a CT chest is pending however this is without contrast due to the patient's iodine allergies. Please note the patient has multiple allergies which can be seen on her allergy list to various medications. At this time we will admit the patient to telemetry for her bilateral lower extremity weakness in which she was unable to satisfactorily ambulate in the emergency department, also her elevated lactic acid is of unknown etiology at this time. Neurology has been consulted, we will also order an MRI of her lumbar spine and possibly brain depending on neuro recommendations. Will also follow-up with the CT scan of her chest, may warrant biopsy if it indeed is characterized as a mass. Will replete electrolytes as necessary, will order physical therapy as well, urinalysis is also ordered and will be followed up on. Although this document has been carefully reviewed, there may still be some phonetic and other typographical errors. These errors are purely grammatical due to imperfections in the software program and should not be construed in any way to compromise the substance of the patient's medical care during this visit.
[2024-11-30] MEDS: LORazepam 0.5 MG TABLET PO (22:12)
[2024-11-30] MEDS: Magnesium Sulfate 4 GM Ivpb 4 GM/50 ML BAG IV (22:12)
[2024-11-30 22:32] LABS: Parathyroid Hormone Intact 73.1 pg/ml (18.5-88.0)
--- NOTE | 2024-11-30 23:56 | PD.NEUROCONS ---
History of Present Illness Data of Consult Requesting Physician: Tai Tyler DO Primary Care Provider: Physician No Primary/Family Consult Narrative cc:: cc: Tai Tyler DO Review of Systems Review of Systems Systems Reviewed: All systems reviewed, normal except as documented Past Medical History Past Medical History CARDIAC: Positive Hypertension; Negative Congestive Heart Failure RESPIRATORY: Negative Chronic Obstructive Pulmonary Disease (COPD) GASTROINTESTINAL: Positive Gall Bladder Disease and Hiatal Hernia GENITOURINARY: Negative Renal Disease MUSCULOSKELETAL: Positive Arthritis ENDOCRINE: Positive Diabetes Mellitus Type 2; Negative Diabetes Mellitus Type 1 PSYCHO/SOCIAL: Positive Anxiety OTHER HISTORY: Positive Falls and Blood Transfusion Reaction; Negative Anesthesia Reactions or Chemotherapy Surgical History SURGICAL: Positive Abdominal Surgery, Nephrectomy (right) and Tubal Ligation Social History SMOKING STATUS: Never smoker SUBSTANCE USE: does not use Meds Home Medications and Allergies Home Medications ?Medication ?Instructions ?Recorded ?Confirmed ?Type alprazolam 1 mg tablet 1 mg PO QID PRN Anxiety 01/02/19 11/30/24 History diltiazem HCl 180 mg 180 mg PO QDAY 01/02/19 11/30/24 History capsule,extended release 24 hr, controlled fluoxetine 40 mg capsule 40 mg PO QDAY 01/02/19 11/30/24 History glyburide 5 mg tablet 5 mg PO BID 01/02/19 11/30/24 History losartan 100 mg tablet 100 mg PO QDAY 01/02/19 11/30/24 History metformin 1,000 mg tablet 1,000 mg PO BID 01/02/19 11/30/24 History prochlorperazine maleate 10 mg 10 mg PO QID PRN Nausea And 01/02/19 11/30/24 History tablet Vomiting albuterol sulfate 90 mcg/actuation 2 puff inhalation QID PRN 07/09/20 11/30/24 History aerosol inhaler (Ventolin HFA) Shortness Of Breath Or Wheezing diphenoxylate-atropine 2.5 1 tab PO TID PRN Diarrhea 07/09/20 11/30/24 History mg-0.025 mg tablet atorvastatin 40 mg tablet 40 mg PO QDAY 07/11/20 11/30/24 History vitamin B complex-vitamin C-folic 1 tab PO QDAY 11/30/24 11/30/24 History acid 0.8 mg tablet (Nephro-Bella) Allergies Allergy/AdvReac Type Severity Reaction Status Date / Time amlodipine Allergy Verified 07/09/20 23:59 azithromycin Allergy Verified 07/09/20 23:53 hydralazine Allergy Verified 07/09/20 23:59 iodine Allergy Verified 07/10/20 00:00 levofloxacin (From Levaquin) Allergy Verified 07/10/20 00:00 metoprolol Allergy Verified 07/09/20 23:58 nitrofurantoin Allergy Verified 07/10/20 00:01 Penicillins Allergy Verified 07/09/20 23:53 simvastatin Allergy Verified 07/09/20 23:59 fluoroquinolones Allergy Uncoded 07/09/20 23:58 Exam - Neurology Vital Signs Temp Pulse Resp BP Pulse Ox O2 Del Method 98.0 F 99 22 H 147/89 H 94 L Room Air 11/30/24 20:00 11/30/24 21:35 11/30/24 21:35 11/30/24 20:00 11/30/24 21:35 11/30/24 20:00 Narrative Exam GENERAL APPEARANCE: Well hydrated, well-nourished in no acute distress. HEENT: Normocephalic, atraumatic, extraocular movements intact. Pupils: Equal reacting to light and accommodation NECK: Supple, no JVD or bruits. CARDIOVASULAR: Heart: S1, S2 heard, regular without S3-S4 or murmur no rubs or gallops. LUNGS/CHEST: Clear to auscultation bilaterally. No rails, rhonchi, or wheezing. Normal inspection. ABDOMEN: Soft, nontender, with normal bowel sounds. No pulsatile masses. No rebound, rigidity, or guarding. Normal inspection and palpation. EXTREMITIES: Normal inspection and palpation. No edema, clubbing or cyanosis. SKIN: Warm and dry without rashes. Normal inspection. MUSCULOSKELETAL: No cervical, thoracic, lumbar or midline bony tenderness. Normal inspection. NEURO: Alert, awake and oriented x3. Cranial nerves: II through XII grossly intact. Speech and language: Normal with no dysarthria or dysphasia. Motor system: Tone and bulk: Normal: Strength: 5 out of 5 in all 4 extremities; No pronator drift noted. Deep tendon reflexes: 2+ bilaterally symmetrical. Plantar reflex: Downgoing bilaterally. Sensory system: Intact to all modalities of sensation bilaterally. Coordination: Intact to [id number] and wbpb-[id number] test bilaterally. No ataxia, no dysmetria, or dysdiadochokinesia noted. No intention tremors noted. Gait: Not tested. No signs of meningeal irritation noted. PSYCHIATRIC: Normal mood and affect. Results Labs 12/01/24 05:17 12/01/24 05:17 Labs: Short CBC 11/30/24 Range/Units 11:04 WBC 10.2 (3.6-11.0) Thou/mm3 Hgb 14.4 (12.0-16.0) g/dL Hct 42.1 (36.0-46.0) % Plt Count 347 (140-440) Thou/mm3 BMP 11/30/24 11:42 Sodium 132 L Potassium 4.3 Chloride 100 Carbon Dioxide 20.6 BUN 10 Creatinine 0.9 Glucose 133 H Calcium 10.4 Cardiac Enzymes 11/30/24 11/30/24 Range/Units 11:42 18:05 Total Creatine Kinase 40 (34-171) U/L Troponin I < 0.020 (0.0-0.045) ng/mL Liver Function 11/30/24 Range/Units 11:42 Total Bilirubin 0.5 (0.3-1.2) mg/dL AST 25 (0-34) U/L ALT 21 (10-49) U/L Alkaline Phosphatase 81 (46-116) U/L Albumin 4.6 (3.4-4.8) gm/dL Urine 11/30/24 Range/Units 14:07 Urine Color Lt-Yellow (Lt Yel-Yel) Urine Clarity Clear (Clear/Hazy) Urine pH 6.0 (5.0-7.0) Ur Specific [place] 1.008 (1.001-1.035) Urine Protein 2+ A (Neg - Trace) Urine Glucose (UA) Negative (Negative) ABG Interpretation ABG results: 11/30/24 11:04 VBG pH 7.41 VBG pCO2 37 VBG pO2 43 VBG Base Excess -1 Assessment & Plan Assessment and plan (1) Generalized weakness: Status: Acute Assessment and plan: Will check B12, vitamin D She would need EMG nerve conduction study of both upper and lower extremities to evaluate further as an outpatient. Physical therapy evaluation for ambulation safety (2) Hypertension: Status: Chronic Assessment and plan: Continue home meds (3) Diabetes mellitus: Status: Chronic Assessment and plan: Continue to check fingerstick glucose and follow sliding scale insulin per protocol Additional Assessment & Plan Additional Plan: As the MRI is negative for acute infarction, patient is stable for discharge home and will need EMG and nerve conduction study of both upper extremities to evaluate further for radial nerve injury. She is advised to take B complex vitamin to promote nerve regeneration.
[2024-12-01] VITALS (11 sets, daily range): BP systolic 117–157; BP diastolic 57–84; PULSE 74–100; RESP 16–94; TEMP 36.3–36.9; O2SAT 91–94; BMI 22.4
[2024-12-01 05:57] LABS: Basophils # (Auto) 0.1 Thou/mm3 (0.0-0.2); Basophils % (Auto) 1 % (0-2.5); Eosinophils % (Auto) 0 % (0-10); Hematocrit 40.2 % (36.0-46.0); Hemoglobin 13.8 g/dL (12.0-16.0); Immature Granulocytes % (Auto) 0 % (0-0); Immature Granulocytes Auto 0.02 Thou/mm3 (0.00-0.00); Lymphocytes # (Auto) 0.9 Thou/mm3 (1.0-4.8); Lymphocytes % (Auto) 12 % (10-50); Mean Corpuscular HGB Conc 34.3 g/dl (31.0-37.0); Mean Corpuscular Hemoglobin 30.3 pg (25.0-35.0); Mean Corpuscular Volume 88 fL (80-100); Monocytes # (Auto) 0.7 Thou/mm3 (0.0-0.8); Monocytes % (Auto) 10 % (0-12); Neutrophils # (Auto) 5.7 Thou/mm3 (1.8-7.7); Neutrophils % (Auto) 77 % (37-80); Nucleated Red Blood Cell % 0 /100 WBC (0); Platelet Count 305 Thou/mm3 (140-440); RDW Standard Deviation 43.1 fL (36.4-46.3); Red Blood Count 4.56 Miln/mm3 (4.00-5.20); White Blood Count 7.4 Thou/mm3 (3.6-11.0)
[2024-12-01 06:10] LABS: Partial Thromboplastin Time 25.2 Seconds (22.0-36.0); Prothrombin Time 10.6 Seconds (9.0-12.2)
[2024-12-01 06:23] LABS: Glucose Estimated Average 126 mg/dL (80-131)
[2024-12-01 06:34] LABS: Alanine Aminotransferase 16 U/L (10-49); Albumin/Globulin Ratio 1.6 (1.2-2.2); Alkaline Phosphatase 75 U/L (46-116); Anion Gap 10 (7-16); Aspartate Amino Transferase 17 U/L (0-34); BUN/Creatinine Ratio 10 Ratio (12-20); Bilirubin,Total 0.5 mg/dL (0.3-1.2); Blood Urea Nitrogen 8 mg/dL (9-23); Calcium 9.4 mg/dL (8.3-10.6); Calcium (Corrected) 9.4 mg/dL (8.5-10.1); Carbon Dioxide 24.8 mMol/L (20.0-31.0); Cardiac Risk Estimate 3.7 RATIO (3.7-5.6); Chloride 103 mMol/L (98-107); Cholesterol 149 mg/dL (132-200); Creatinine (Component) 0.8 mg/dL (0.6-1.3); Globulin 2.5 gm/dL (2.3-3.5); Glucose 191 mg/dL (74-106); HDL Cholesterol 40 mg/dL (40-60); LDL Cholesterol,Calculated 80 mg/dL (0-130); Magnesium 2.1 mg/dL (1.6-2.6); Osmolality,Calculated 278 (275-295); Phosphorous 2.9 mg/dL (2.4-5.1); Potassium 3.8 mMol/L (3.4-5.1); Sodium 138 mMol/L (136-145); Total Protein 6.5 gm/dL (5.7-8.2); Triglycerides 147 mg/dL (30-150); Troponin I < 0.020 ng/mL (0.0-0.045); eGFR > 60 See Note
[2024-12-01] MEDS: PANTOPRAZOLE INJ 40 MG VIAL IVP (08:43)
[2024-12-01] MEDS: LOSARTAN POTASSIUM 25 MG TABLET 100 MG PO (08:43)
[2024-12-01] MEDS: DILTIAZEM CD 180 MG CAPCR PO (08:44)
[2024-12-01] MEDS: FLUoxetine HCL 10 MG CAPSULE 40 MG PO (08:45)
[2024-12-01] MEDS: VIT B12/Vit C/FA (Nephrovite) TABLET 1 TAB PO (08:45)
--- NOTE | 2024-12-01 11:32 | PC.NURSE ---
SPOKE TO MARTHA CROCKER, NOTIFIED THAT PER DR YANES, BIOPSY CANNOT BE DONE UNTIL PATIENTS ASPIRIN HAS BEEN HELD UNTIL SATURDAY. ASKED NURSE TO NOTIFY MD AND ASK HIM TO HOLD ASPIRIN AND HAVE HIM PLACE A NEW ORDER ON SATURDAY FOR IR TO FOLLOW UP ON THE PROCEDURE.
--- NOTE | 2024-12-01 11:36 | PC.SS ---
Patient Marielos Vega is a 69 Year old female admitted for B/L lower ext Weakness. SS met with patient at bedside to discuss discharge plan and review demographic information. Patient reports she lives at home alone. Patient reports her daughter, Cydney Whitaker is surrogate decision maker [phone]. Patient reports she utilizes a Rollator waker to assist with ambulation, patient is also able to complete ADL's independently. Choice of pharmacy is [facility]. PT recommended SNF, patient reports she would like facility that would offer private room, Only facility at the time is [facility] that will offer Private room. Pending [facility]'s acceptance. SS submitted SNF inquiry through [employer] Discharge plan SNF Next of Kin: Daughter, Neptali Whitaker
[2024-12-01 13:04] LABS: Cocci Serology, IgM Negative (Negative)
--- NOTE | 2024-12-01 13:49 | ESPR_ITS ---
<Statement entered by Efren Woodward MD - 12/01/24 15:12> Patient was seen and examined at the bedside. No acute overnight events were reported. PT evaluated the patient recommended SNF for acute rehab. Patient will be getting CT-guided right lung biopsy on as she took aspirin recently. Will hold off aspirin and heparin and placed on SCDs for DVT prophylaxis. Anticipating discharge on as patient needs to stay 2 more midnights for SNF. Orthostatic vitals were not taken. Labs were unremarkable. Chemistry panel was insignificant. Patient's A1c insulin prediabetic range around 6.0. Recommended dietary modification. CT chest abdomen was significant for pulmonary nodules largest in right upper lobe which will be getting biopsy and patient is agreeable to the plan. Blood cultures showed no growth x 24 hours. Neurology did not recommend further investigation. Recommended to have outpatient nerve conduction study only. All labs and orders were reviewed. I saw and examined the patient, and I agree with current management stated by Dr Hakan MD,PGY1. Plan of care was discussed with the attending physician and resident physician. Disclaimer: Despite multiple revisions, due to the dictation software being used, the document bellow may not be free of grammatical errors including phonetic/typographic errors. However, this does not deter from our commitment to providing health care in the patient's best interest in mind. Dr. Nona MD, PGY 2 Documentation for date of: 12/01/24 Subjective Subjective Interval history: No acute overnight events reported patient seen and examined at bedside this morning. Patient is saturating on room air denies any chest pain or abdominal pain. Per neurology recommends Pt does not need MRI of head or spine, as the weakness is not related to CVA, neurology recommends EMG and nerve conduction study for upper and lower extremities to evaluate further for radial nerve injury as well as recommended physical therapy for further evaluation or ambulation. Per physical therapy recommendation patient will need acute rehab placement. CT of chest abdomen pelvis showed multiple pulmonary nodules which patient is agreeable to biopsy therefore biopsy is ordered and scheduled for as patient had a dose of aspirin last night. Vitals are stable and labs are unremarkable with the exception of blood glucose of 191 patient is on sliding scale. Exam Vital Signs Temp Pulse Resp BP Pulse Ox O2 Del Method 97.7 F 100 17 147/77 H 94 L Room Air 12/01/24 11:43 12/01/24 12:00 12/01/24 11:43 12/01/24 11:43 12/01/24 11:43 12/01/24 11:43 Narrative Exam GENERAL: A&Ox3. Awake, Not in acute distress NEURO: no focal neurological deficits HEENT: Atraumatic, Normocephalic. mucous membranes moist. Eyes open, symmetrical, & clear HEART: Normal Heart Sounds LUNGS: Clear to auscultation with no wheezing or crackles. ABDOMEN: soft, non-distended, non-tender, bowel sounds heard, no guarding or rebound tenderness SKIN: No Rash or ecchymoses, bruising on right and left arm from fall at home. EXTREMITIES: No edema, tenderness, able to move all 4 extremities, pedal pulses palpated Objective Labs 12/02/24 05:14 12/02/24 05:14 Labs: Laboratory Results - last 24 hr 11/30/24 11/30/24 11/30/24 14:07 14:43 18:05 WBC RBC Hgb Hct MCV MCH MCHC RDW Std Deviation Plt Count Neut % (Auto) Lymph % (Auto) [place] % (Auto) Eos % (Auto) Baso % (Auto) Neut # (Auto) Lymph # (Auto) [place] # (Auto) Eos # (Auto) Baso # (Auto) Immature Gran # (Auto) Absolute Nucleated RBC Immature Gran % Nucleated RBC % PT INR APTT Sodium Potassium Chloride Carbon Dioxide Anion Gap BUN Creatinine Estim Creat Clear Calc eGFR BUN/Creatinine Ratio Glucose Estimated Ave Glu mg/dL Hemoglobin A1c Calculated Osmolality Lactic Acid 1.5 Calcium Corrected Calcium Phosphorus 3.2 Magnesium 1.5 L Total Bilirubin AST ALT Alkaline Phosphatase Total Creatine Kinase 40 Troponin I Total Protein Albumin Globulin Albumin/Globulin Ratio Triglycerides Cholesterol LDL Cholesterol, Calc HDL Cholesterol Cholesterol/HDL Ratio TSH 0.48 L Thyroxine (T4) 9.0 PTH Intact 73.1 Ur Collection Type Clean Catch Urine Color Lt-Yellow Urine Clarity Clear Urine pH 6.0 Ur Specific [place] 1.008 Urine Protein 2+ A Urine Glucose (UA) Negative Urine Ketones Negative Urine Blood Negative Urine Nitrite Negative Urine Bilirubin Negative Urine Urobilinogen (Auto) Negative Ur Leukocyte Esterase Negative Urine RBC 1 Urine WBC 1 Ur Squamous Epith Cells 1 Urine Bacteria None Ur Culture Indicated? Not Indicated Urine Opiates Screen Negative Urine Fentanyl Screen Negative Ur Barbiturates Screen Negative U Amphetamin/Meth Scrn Negative U Benzodiazepines Scrn Negative U Cocaine Metab Screen Negative U Marijuana (THC) Screen Negative Coccidioides IgM Ab 12/01/24 05:17 WBC 7.4 RBC 4.56 Hgb 13.8 Hct 40.2 MCV 88 MCH 30.3 MCHC 34.3 RDW Std Deviation 43.1 Plt Count 305 D Neut % (Auto) 77 Lymph % (Auto) 12 [place] % (Auto) 10 Eos % (Auto) 0 Baso % (Auto) 1 Neut # (Auto) 5.7 Lymph # (Auto) 0.9 L [place] # (Auto) 0.7 Eos # (Auto) 0.0 Baso # (Auto) 0.1 Immature Gran # (Auto) 0.02 H Absolute Nucleated RBC 0.00 Immature Gran % 0 Nucleated RBC % 0 PT 10.6 INR 1.0 APTT 25.2 Sodium 138 Potassium 3.8 D Chloride 103 Carbon Dioxide 24.8 Anion Gap 10 BUN 8 L Creatinine 0.8 Estim Creat Clear Calc 67.0 eGFR > 60 BUN/Creatinine Ratio 10 L Glucose [address] Glu mg/dL 126 Hemoglobin A1c 6.0 Calculated Osmolality 278 Lactic Acid Calcium 9.4 Corrected Calcium 9.4 Phosphorus 2.9 Magnesium 2.1 Total Bilirubin 0.5 AST 17 ALT 16 Alkaline Phosphatase 75 Total Creatine Kinase Troponin I < 0.020 Total Protein 6.5 Albumin 4.0 D Globulin 2.5 Albumin/Globulin Ratio 1.6 Triglycerides 147 Cholesterol 149 LDL Cholesterol, Calc 80 HDL Cholesterol 40 Cholesterol/HDL Ratio 3.7 TSH Thyroxine (T4) PTH Intact Ur Collection Type Urine Color Urine Clarity Urine pH Ur Specific [place] Urine Protein Urine Glucose (UA) Urine Ketones Urine Blood Urine Nitrite Urine Bilirubin Urine Urobilinogen (Auto) Ur Leukocyte Esterase Urine RBC Urine WBC Ur Squamous Epith Cells Urine Bacteria Ur Culture Indicated? Urine Opiates Screen Urine Fentanyl Screen Ur Barbiturates Screen U Amphetamin/Meth Scrn U Benzodiazepines Scrn U Cocaine Metab Screen U Marijuana (THC) Screen Coccidioides IgM Ab Negative ABG Interpretation ABG results: 11/30/24 11:04 VBG pH 7.41 VBG pCO2 37 VBG pO2 43 VBG Base Excess -1 Quality Measures Quality Measures none Advance care planning discussed with:: patient Assessment & Plan Assessment Current Active Medications: Generic Name Dose Route Start Last Admin Trade Name Freq PRN Reason Stop Dose Admin Acetaminophen 650 mg 11/30/24 17:54 Acetaminophen 325 Mg Tablet PO 12/30/24 17:53 Q6H PRN Fever >100.4 Acetaminophen 650 mg 11/30/24 17:54 Acetaminophen 325 Mg Tablet PO 12/30/24 17:53 Q6H PRN PAIN SCALE 1-3 (mild Albuterol/Ipratropium 3 ml 11/30/24 21:31 Albuterol/Ipratropium (Duoneb) Rt [place] 3 Ml Nebu INH 12/30/24 21:30 Q2HR PRN SHORTNESS OF BREATH OR WHEEZE Amlodipine Besylate 10 mg 12/02/24 09:00 Amlodipine Besylate 5 Mg Tablet PO 01/01/25 08:59 QDAY TAI Aspirin 81 mg 12/01/24 10:15 12/01/24 12:24 Aspirin Ec 81 Mg Tabec PO 12/31/24 10:14 Not Given QDAY TAI Atorvastatin Calcium 40 mg 11/30/24 21:00 11/30/24 20:38 Atorvastatin Calcium 20 Mg Tablet PO 12/30/24 20:59 40 mg HS TAI Administration Dextrose 25 ml 11/30/24 21:21 Dextrose 50%-Water Inj 50 Ml Syringe IV 12/30/24 21:20 Q15MIN PRN BG 50-70 responsive npo pt Dextrose 50 ml 11/30/24 21:21 Dextrose 50%-Water Inj 50 Ml Syringe IV 12/30/24 21:20 Q15MIN PRN BG <50 OR BG <70 & pt unresponsive Diltiazem HCl 180 mg 12/01/24 09:00 12/01/24 08:44 Diltiazem Cd 180 Mg Capcr PO 12/31/24 08:59 180 mg QDAY TAI Administration Fluoxetine HCl 40 mg 12/01/24 09:00 12/01/24 08:45 Fluoxetine Hcl 10 Mg Capsule PO 12/31/24 08:59 40 mg QDAY TAI Administration Fluticasone Propionate 1 spray 12/01/24 12:32 Fluticasone [place] 0.05% 16 Gm Btl NASAL 12/31/24 12:31 Q12H PRN nasal congestion Glucagon 1 mg 11/30/24 21:21 Glucagon Inj 1 Mg Vial IM Q15MIN PRN BG <70, and no IV access Heparin Sodium (Porcine) 5,000 unit 11/30/24 21:00 11/30/24 20:38 Heparin Sod Inj 5000 Unit/Ml Vial SC 12/14/24 20:59 5,000 unit BID TAI Administration Insulin Human Lispro 0 unit 12/01/24 07:30 12/01/24 12:24 Insulin Lispro (Admelog) 1 Unit/0.01 Ml Unit SC 12/31/24 07:29 Not Given AC TAI Protocol Lorazepam 0.5 mg 11/30/24 21:23 11/30/24 22:12 Lorazepam 0.5 Mg Tablet PO 12/05/24 21:22 0.5 mg HS PRN Administration anxiety Non-Formulary Medication 1 inh 12/01/24 12:45 Mvrwkhucpli-Vxfloohmn-Foepnhoz [Trelegy Ellipta] IH 12/31/24 12:44 QDAY TAI Ondansetron HCl 4 mg 11/30/24 17:54 Ondansetron Inj 2 Mg/Ml Inj 2 Ml IV 12/30/24 17:53 Q6H PRN NAUSEA OR VOMITING Protocol Pantoprazole Sodium 40 mg 11/30/24 18:00 12/01/24 08:43 Pantoprazole Inj 40 Mg Vial IVP 12/30/24 17:59 40 mg QDAY TAI Administration Vitamin B Complex/Vit C/Folic Acid 1 tab 12/01/24 09:00 12/01/24 08:45 Vit B12/Vit C/Fa (Nephrovite) Tablet PO 12/31/24 08:59 1 tab QDAY TAI Administration Plan Ms. Vega is a 69-year-old female medical history significant for hypertension, hyperlipidemia, COPD, type 2 diabetes, history of renal cell carcinoma status post right nephrectomy, history of ischemic stroke in 2019 presents to the ED complaining of progressive bilateral weakness in lower extremities for the past 2 weeks and has been using a walker for 2 weeks. #Lower extremities weakness, bilateral DDX: GBS, spinal stenosis, deconditioning, medication induced -although patient did not have recent URI or diarrhea like symptoms, pt has cough 2 weeks ago that resolved spontaneously -Pt starting taking ativan 2-3 weeks ago at night and pt had a fall due to legs giving up at night -CT of head is negative for hemorrhage, mass affect or midline shift Plan: -neurology consulted, appreciate recommendations -Per neuro recommendation, Pt's will need EMG and nerve conduction of upper and lower extremities to evaluate further for nerve injury outpatient #Pulmonary nodules, bilateral #hx. of renal cell carcinoma s/p R. nephrectomy -Pt has history of right renal cell carcinoma and underwent right nephrectomy without radiation or chemo -Pt was found to have benign thyroid and left breast nodules -CT chest/abdomen/pelvis: Pulmonary lung masses, the largest 3.4 cm in the right upper lobe, highest on the differential list is lung carcinoma with metastatic mediastinal lymphadenopathy, 12mm pulmonary nodule in the left lower lobe and 8mm pulmonary nodule in the right lower lobe Plan: -Pt is scheduled for lung mass biopsy on #Primary hypertension #Hyperlipidemia -Resumed home antihypertensive include diltiazem 180mg and Losartan 100mg daily -Resumed home atorvastatin #Non Insulin dependent type 2 diabetes -Pt's home medications include metformin 1000mg BID and glyburide 5 mg BID -A1c 6.0 12/01/24 -Insulin sliding scale ordered with accu-checks ACHS # Hx. of acute CVA -Pt had ischemic stroke in 07/2020 without residual deficits other than when she gets anxious she has slurred speech. -Pt takes statin and aspirin daily -resumed home statin, will hold home aspirin for biopsy #Hx of COPD -Pt is a former smoker and does not use home oxygen -Pt uses trelegy inhaler once daily -Duonebs ordered PRN -Supplemental O2 as needed Health Maintenance Disposition: telemetry DVT Prophylaxis: Heparin 5000 units SC Q8 hrs GI Prophylaxis: Pantoprozol-40 IV Qday Diet: Diabetic Diet Lines: Peripheral lines Code status: Full Assessment and plan discussed with my senior resident Dr. Woodward & attending physician Dr. Jacqueline Mcclendon (PGY-1)- Internal medicine resident Attending Provider Attestation/Addendum I reviewed labs, imaging, EKG, home medications and prior available records. Face to face evaluation was performed by me. I have personally examined the patient and discussed assessment and plan with the IM team. I reviewed the resident note and agree with the plan with exceptions as below. Bilateral lower extremity weakness Lung mass History of tobacco use Discussed with neurology: Continue vitamin B therapy. No need for brain MRI or lumbar spine MRI. May need EMG as outpatient. Follow-up with neurology as outpatient Held aspirin prior to IR guided biopsy Follow-up PT Will need 3 inpatient stays prior to placement
--- NOTE | 2024-12-01 13:53 | PC.PT ---
Patient is safe to transfer to the commode with 1 staff assist for safety. RN made aware.
--- NOTE | 2024-12-01 14:24 | ESPR_ITS ---
Documentation for date of: 12/01/24 Subjective Subjective Interval history: Patient seen and assessed at bedside. Patient reports that she ambulated with PT, but still feels the same weakness in lower extremities. Patient also reports agoraphobia. Patient reports blurry vision of left eye. Exam Vital Signs Temp Pulse Resp BP Pulse Ox O2 Del Method 97.7 F 100 17 147/77 H 94 L Room Air 12/01/24 11:43 12/01/24 12:00 12/01/24 11:43 12/01/24 11:43 12/01/24 11:43 12/01/24 11:43 Narrative Exam GENERAL: A&Ox3 . Awake, Not in acute distress NEURO: Equal upper extremity strength. Right lower extremity strength 3/5. Left lower extremity 4/5. Nystagmus noted during adduction both eyes. Good heel to [place], slight delay/ miss finger to nose left eye. HEENT: Atraumatic, Normocephalic. mucous membranes moist. PERRLA, EOMI HEART: RRR , No M/R/G. LUNGS: Clear to auscultation with no wheezing or crackles. ABDOMEN: soft, non-distended, non-tender, bowel sounds heard, no guarding or rebound tenderness SKIN: No Rash or ecchymoses EXTREMITIES: No edema, no tenderness, able to move all 4 extremities. Objective Labs 12/01/24 05:17 12/01/24 05:17 Labs: Laboratory Results - last 24 hr 11/30/24 11/30/24 11/30/24 14:07 14:43 18:05 WBC RBC Hgb Hct MCV MCH MCHC RDW Std Deviation Plt Count Neut % (Auto) Lymph % (Auto) [place] % (Auto) Eos % (Auto) Baso % (Auto) Neut # (Auto) Lymph # (Auto) [place] # (Auto) Eos # (Auto) Baso # (Auto) Immature Gran # (Auto) Absolute Nucleated RBC Immature Gran % Nucleated RBC % PT INR APTT Sodium Potassium Chloride Carbon Dioxide Anion Gap BUN Creatinine Estim Creat Clear Calc eGFR BUN/Creatinine Ratio Glucose Estimated Ave Glu mg/dL Hemoglobin A1c Calculated Osmolality Lactic Acid 1.5 Calcium Corrected Calcium Phosphorus 3.2 Magnesium 1.5 L Total Bilirubin AST ALT Alkaline Phosphatase Total Creatine Kinase 40 Troponin I Total Protein Albumin Globulin Albumin/Globulin Ratio Triglycerides Cholesterol LDL Cholesterol, Calc HDL Cholesterol Cholesterol/HDL Ratio TSH 0.48 L Thyroxine (T4) 9.0 PTH Intact 73.1 Ur Collection Type Clean Catch Urine Color Lt-Yellow Urine Clarity Clear Urine pH 6.0 Ur Specific [place] 1.008 Urine Protein 2+ A Urine Glucose (UA) Negative Urine Ketones Negative Urine Blood Negative Urine Nitrite Negative Urine Bilirubin Negative Urine Urobilinogen (Auto) Negative Ur Leukocyte Esterase Negative Urine RBC 1 Urine WBC 1 Ur Squamous Epith Cells 1 Urine Bacteria None Ur Culture Indicated? Not Indicated Urine Opiates Screen Negative Urine Fentanyl Screen Negative Ur Barbiturates Screen Negative U Amphetamin/Meth Scrn Negative U Benzodiazepines Scrn Negative U Cocaine Metab Screen Negative U Marijuana (THC) Screen Negative Coccidioides IgM Ab 12/01/24 05:17 WBC 7.4 RBC 4.56 Hgb 13.8 Hct 40.2 MCV 88 MCH 30.3 MCHC 34.3 RDW Std Deviation 43.1 Plt Count 305 D Neut % (Auto) 77 Lymph % (Auto) 12 [place] % (Auto) 10 Eos % (Auto) 0 Baso % (Auto) 1 Neut # (Auto) 5.7 Lymph # (Auto) 0.9 L [place] # (Auto) 0.7 Eos # (Auto) 0.0 Baso # (Auto) 0.1 Immature Gran # (Auto) 0.02 H Absolute Nucleated RBC 0.00 Immature Gran % 0 Nucleated RBC % 0 PT 10.6 INR 1.0 APTT 25.2 Sodium 138 Potassium 3.8 D Chloride 103 Carbon Dioxide 24.8 Anion Gap 10 BUN 8 L Creatinine 0.8 Estim Creat Clear Calc 67.0 eGFR > 60 BUN/Creatinine Ratio 10 L Glucose [address] Glu mg/dL 126 Hemoglobin A1c 6.0 Calculated Osmolality 278 Lactic Acid Calcium 9.4 Corrected Calcium 9.4 Phosphorus 2.9 Magnesium 2.1 Total Bilirubin 0.5 AST 17 ALT 16 Alkaline Phosphatase 75 Total Creatine Kinase Troponin I < 0.020 Total Protein 6.5 Albumin 4.0 D Globulin 2.5 Albumin/Globulin Ratio 1.6 Triglycerides 147 Cholesterol 149 LDL Cholesterol, Calc 80 HDL Cholesterol 40 Cholesterol/HDL Ratio 3.7 TSH Thyroxine (T4) PTH Intact Ur Collection Type Urine Color Urine Clarity Urine pH Ur Specific [place] Urine Protein Urine Glucose (UA) Urine Ketones Urine Blood Urine Nitrite Urine Bilirubin Urine Urobilinogen (Auto) Ur Leukocyte Esterase Urine RBC Urine WBC Ur Squamous Epith Cells Urine Bacteria Ur Culture Indicated? Urine Opiates Screen Urine Fentanyl Screen Ur Barbiturates Screen U Amphetamin/Meth Scrn U Benzodiazepines Scrn U Cocaine Metab Screen U Marijuana (THC) Screen Coccidioides IgM Ab Negative ABG Interpretation ABG results: 11/30/24 11:04 VBG pH 7.41 VBG pCO2 37 VBG pO2 43 VBG Base Excess -1 Quality Measures Quality Measures none Advance care planning discussed with:: patient Assessment & Plan Assessment Current Active Medications: Generic Name Dose Route Start Last Admin Trade Name Freq PRN Reason Stop Dose Admin Acetaminophen 650 mg 11/30/24 17:54 Acetaminophen 325 Mg Tablet PO 12/30/24 17:53 Q6H PRN Fever >100.4 Acetaminophen 650 mg 11/30/24 17:54 Acetaminophen 325 Mg Tablet PO 12/30/24 17:53 Q6H PRN PAIN SCALE 1-3 (mild Albuterol/Ipratropium 3 ml 11/30/24 21:31 Albuterol/Ipratropium (Duoneb) Rt [place] 3 Ml Nebu INH 12/30/24 21:30 Q2HR PRN SHORTNESS OF BREATH OR WHEEZE Amlodipine Besylate 10 mg 12/02/24 09:00 Amlodipine Besylate 5 Mg Tablet PO 01/01/25 08:59 QDAY TAI Aspirin 81 mg 12/01/24 10:15 12/01/24 12:24 Aspirin Ec 81 Mg Tabec PO 12/31/24 10:14 Not Given QDAY TAI Atorvastatin Calcium 40 mg 11/30/24 21:00 11/30/24 20:38 Atorvastatin Calcium 20 Mg Tablet PO 12/30/24 20:59 40 mg HS TAI Administration Dextrose 25 ml 11/30/24 21:21 Dextrose 50%-Water Inj 50 Ml Syringe IV 12/30/24 21:20 Q15MIN PRN BG 50-70 responsive npo pt Dextrose 50 ml 11/30/24 21:21 Dextrose 50%-Water Inj 50 Ml Syringe IV 12/30/24 21:20 Q15MIN PRN BG <50 OR BG <70 & pt unresponsive Diltiazem HCl 180 mg 12/01/24 09:00 12/01/24 08:44 Diltiazem Cd 180 Mg Capcr PO 12/31/24 08:59 180 mg QDAY TAI Administration Fluoxetine HCl 40 mg 12/01/24 09:00 12/01/24 08:45 Fluoxetine Hcl 10 Mg Capsule PO 12/31/24 08:59 40 mg QDAY TAI Administration Fluticasone Propionate 1 spray 12/01/24 12:32 Fluticasone Emmanuel [place] 0.05% 16 Gm Btl NASAL 12/31/24 12:31 Q12H PRN nasal congestion Glucagon 1 mg 11/30/24 21:21 Glucagon Inj 1 Mg Vial IM Q15MIN PRN BG <70, and no IV access Heparin Sodium (Porcine) 5,000 unit 11/30/24 21:00 11/30/24 20:38 Heparin Sod Inj 5000 Unit/Ml Vial SC 12/14/24 20:59 5,000 unit BID TAI Administration Insulin Human Lispro 0 unit 12/01/24 07:30 12/01/24 12:24 Insulin Lispro (Admelog) 1 Unit/0.01 Ml Unit SC 12/31/24 07:29 Not Given AC TAI Protocol Lorazepam 0.5 mg 11/30/24 21:23 11/30/24 22:12 Lorazepam 0.5 Mg Tablet PO 12/05/24 21:22 0.5 mg HS PRN Administration anxiety Non-Formulary Medication 1 inh 12/01/24 12:45 [id number]-Azubzyigt-Abktyayb [Trelegy Ellipta] IH 12/31/24 12:44 QDAY TAI Ondansetron HCl 4 mg 11/30/24 17:54 Ondansetron Inj 2 Mg/Ml Inj 2 Ml IV 12/30/24 17:53 Q6H PRN NAUSEA OR VOMITING Protocol Pantoprazole Sodium 40 mg 11/30/24 18:00 12/01/24 08:43 Pantoprazole Inj 40 Mg Vial IVP 12/30/24 17:59 40 mg QDAY TAI Administration Vitamin B Complex/Vit C/Folic Acid 1 tab 12/01/24 09:00 12/01/24 08:45 Vit B12/Vit C/Fa (Nephrovite) Tablet PO 12/31/24 08:59 1 tab QDAY TAI Administration Plan #Lower extremity weakness. No acute changes noted on CT head Pending B12 and vitamin D Continue working with PT Patient will need outpatient nerve conduction study. #Diabetes mellitus #Hypertension #Pulmonary nodules #History of CVA Continue management per primary team Case discussed with attending Dr Mg Gillespie MD PGY3 Attending Provider Attestation/Addendum Patient chart was reviewed independently and agreed with the resident's findings, assessment and plan of care. Patient needs EMG nerve conduction study as an outpatient if the weakness persists. No need for any imaging study at this point.
[2024-12-01] MEDS: ATORVASTATIN CALCIUM 20 MG TABLET 40 MG PO (20:09)
[2024-12-01] MEDS: LORazepam 0.5 MG TABLET PO (20:14)
[2024-12-01] MEDS: ONDANSETRON INJ 2 MG/ML INJ 2 ML 4 MG IV (21:39)
[2024-12-02] VITALS (12 sets, daily range): BP systolic 125–156; BP diastolic 72–90; PULSE 88–107; RESP 12–94; TEMP 36.2–37.1; O2SAT 93–99; BMI 22.1; BMI 13.0
[2024-12-02 06:06] LABS: Basophils % (Auto) 0 % (0-2.5); Eosinophils # (Auto) 0.1 Thou/mm3 (0.0-0.5); Eosinophils % (Auto) 1 % (0-10); Hemoglobin 13.4 g/dL (12.0-16.0); Immature Granulocytes % (Auto) 1 % (0-0); Immature Granulocytes Auto 0.04 Thou/mm3 (0.00-0.00); Lymphocytes # (Auto) 1.1 Thou/mm3 (1.0-4.8); Lymphocytes % (Auto) 14 % (10-50); Mean Corpuscular HGB Conc 34.4 g/dl (31.0-37.0); Mean Corpuscular Hemoglobin 30.4 pg (25.0-35.0); Mean Corpuscular Volume 88 fL (80-100); Monocytes # (Auto) 0.8 Thou/mm3 (0.0-0.8); Monocytes % (Auto) 10 % (0-12); Neutrophils # (Auto) 5.9 Thou/mm3 (1.8-7.7); Neutrophils % (Auto) 74 % (37-80); Nucleated Red Blood Cell % 0 /100 WBC (0); Platelet Count 296 Thou/mm3 (140-440); RDW Standard Deviation 43.1 fL (36.4-46.3); Red Blood Count 4.41 Miln/mm3 (4.00-5.20); White Blood Count 7.9 Thou/mm3 (3.6-11.0)
[2024-12-02 06:38] LABS: Alanine Aminotransferase 16 U/L (10-49); Albumin, Serum 3.9 gm/dL (3.4-4.8); Albumin/Globulin Ratio 1.6 (1.2-2.2); Alkaline Phosphatase 73 U/L (46-116); Anion Gap 8 (7-16); Aspartate Amino Transferase 16 U/L (0-34); BUN/Creatinine Ratio 13 Ratio (12-20); Bilirubin,Total 0.4 mg/dL (0.3-1.2); Blood Urea Nitrogen 10 mg/dL (9-23); Calcium 9.9 mg/dL (8.3-10.6); Carbon Dioxide 23.6 mMol/L (20.0-31.0); Chloride 105 mMol/L (98-107); Creatinine (Component) 0.8 mg/dL (0.6-1.3); Globulin 2.5 gm/dL (2.3-3.5); Glucose 151 mg/dL (74-106); Magnesium 1.7 mg/dL (1.6-2.6); Osmolality,Calculated 275 (275-295); Potassium 3.9 mMol/L (3.4-5.1); Sodium 137 mMol/L (136-145); Total Protein 6.4 gm/dL (5.7-8.2); eGFR > 60 See Note
[2024-12-02] MEDS: INSULIN LISPRO (AdmeLOG) 1 UNIT/0.01 ML UNIT SC ×3 (07:36→16:51)
[2024-12-02] MEDS: Magnesium Sulfate 4 GM Ivpb 4 GM/50 ML BAG IV (08:56)
[2024-12-02] MEDS: VIT B12/Vit C/FA (Nephrovite) TABLET 1 TAB PO (08:57)
[2024-12-02] MEDS: PANTOPRAZOLE INJ 40 MG VIAL IVP (08:57)
[2024-12-02] MEDS: FLUoxetine HCL 10 MG CAPSULE 40 MG PO (08:57)
[2024-12-02] MEDS: DILTIAZEM CD 180 MG CAPCR PO (08:57)
[2024-12-02] MEDS: amLODIPine BESYLATE 5 MG TABLET 10 MG PO (08:58)
[2024-12-02] MEDS: SENNA TABLET 1 TAB PO (10:23)
[2024-12-02] MEDS: POLYETHYLENE GLYCOL 17 GM PACKET PO (10:23)
[2024-12-02 11:09] LABS: Cocci Serology, IgG Negative (Negative)
--- NOTE | 2024-12-02 11:25 | ESPR_ITS ---
<Statement entered by Efren Woodward MD - 12/02/24 18:21> Patient was seen and examined at the bedside. No acute overnight events were reported. Patient reported that she has not had a bowel movement from last 2 days therefore bowel regimen was added. Patient is scheduled to get a biopsy of the lung tomorrow morning. Therefore she will be n.p.o. after midnight. Labs were unremarkable and magnesium was repleted. Patient was updated on the plan. All labs and orders were reviewed. I saw and examined the patient, and I agree with current management stated by Dr Hakan MD,PGY1. Plan of care was discussed with the attending physician and resident physician. Disclaimer: Despite multiple revisions, due to the dictation software being used, the document bellow may not be free of grammatical errors including phonetic/typographic errors. However, this does not deter from our commitment to providing health care in the patient's best interest in mind. Dr. Trace MD, PGY 2 Documentation for date of: 12/02/24 Subjective Subjective Interval history: No acute overnight events reported, Pt is seen and examined at bedside this morning. Pt is pending lung biopsy scheduled for tomorrow. Pt denies any chest pain, SOB or abdominal pain. pt is saturating on room air, states she hasnt had a bowel movement since admission, therefore will schedule bowel regimen. Pt has no other complaints. Vitals are stable, labs are stable with exception of Mg 1.7 and 4gm is repleated. Exam Vital Signs Temp Pulse Resp BP Pulse Ox O2 Del Method 97.5 F 88 21 H 125/80 94 L Room Air 12/02/24 08:00 12/02/24 10:36 12/02/24 09:36 12/02/24 10:36 12/02/24 09:36 12/02/24 08:00 Narrative Exam GENERAL: A&Ox3. Awake, Not in acute distress NEURO: no focal neurological deficits HEENT: Atraumatic, Normocephalic. mucous membranes moist. Eyes open, symmetrical, & clear HEART: Normal Heart Sounds LUNGS: Clear to auscultation with no wheezing or crackles. ABDOMEN: soft, non-distended, non-tender, bowel sounds heard, no guarding or rebound tenderness SKIN: No Rash or ecchymoses, bruising on right and left arm from fall at home. EXTREMITIES: No edema, tenderness, able to move all 4 extremities, pedal pulses palpated, upper and lower extremity strength is 4/5 Objective Labs 12/03/24 05:07 12/03/24 05:07 Labs: Laboratory Results - last 24 hr 12/01/24 12/02/24 05:17 05:14 WBC 7.9 RBC 4.41 Hgb 13.4 Hct 39.0 MCV 88 MCH 30.4 MCHC 34.4 RDW Std Deviation 43.1 Plt Count 296 Neut % (Auto) 74 Lymph % (Auto) 14 [place] % (Auto) 10 Eos % (Auto) 1 Baso % (Auto) 0 Neut # (Auto) 5.9 Lymph # (Auto) 1.1 [place] # (Auto) 0.8 Eos # (Auto) 0.1 Baso # (Auto) 0.0 Immature Gran # (Auto) 0.04 H Absolute Nucleated RBC 0.00 Immature Gran % 1 H Nucleated RBC % 0 Sodium 137 Potassium 3.9 Chloride 105 Carbon Dioxide 23.6 Anion Gap 8 BUN 10 Creatinine 0.8 Estim Creat Clear Calc 67.0 eGFR > 60 BUN/Creatinine Ratio 13 Glucose 151 H Calculated Osmolality 275 Calcium 9.9 Corrected Calcium 10.0 Phosphorus 3.0 Magnesium 1.7 Total Bilirubin 0.4 AST 16 ALT 16 Alkaline Phosphatase 73 Total Protein 6.4 Albumin 3.9 Globulin 2.5 Albumin/Globulin Ratio 1.6 Coccidioides IgG Ab Negative Coccidioides IgM Ab Negative ABG Interpretation ABG results: 11/30/24 11:04 VBG pH 7.41 VBG pCO2 37 VBG pO2 43 VBG Base Excess -1 Quality Measures Quality Measures none Advance care planning discussed with:: patient Assessment & Plan Assessment Current Active Medications: Generic Name Dose Route Start Last Admin Trade Name Freq PRN Reason Stop Dose Admin Acetaminophen 650 mg 11/30/24 17:54 Acetaminophen 325 Mg Tablet PO 12/30/24 17:53 Q6H PRN Fever >100.4 Acetaminophen 650 mg 11/30/24 17:54 Acetaminophen 325 Mg Tablet PO 12/30/24 17:53 Q6H PRN PAIN SCALE 1-3 (mild Albuterol/Ipratropium 3 ml 11/30/24 21:31 Albuterol/Ipratropium (Duoneb) Rt Adalgisa 3 Ml Nebu INH 12/30/24 21:30 Q2HR PRN SHORTNESS OF BREATH OR WHEEZE Amlodipine Besylate 10 mg 12/02/24 09:00 12/02/24 08:58 Amlodipine Besylate 5 Mg Tablet PO 01/01/25 08:59 10 mg QDAY TAI Administration Aspirin 81 mg 12/01/24 10:15 12/01/24 12:24 Aspirin Ec 81 Mg Tabec PO 12/31/24 10:14 Not Given QDAY TAI Atorvastatin Calcium 40 mg 11/30/24 21:00 12/01/24 20:09 Atorvastatin Calcium 20 Mg Tablet PO 12/30/24 20:59 40 mg HS TAI Administration Dextrose 25 ml 11/30/24 21:21 Dextrose 50%-Water Inj 50 Ml Syringe IV 12/30/24 21:20 Q15MIN PRN BG 50-70 responsive npo pt Dextrose 50 ml 11/30/24 21:21 Dextrose 50%-Water Inj 50 Ml Syringe IV 12/30/24 21:20 Q15MIN PRN BG <50 OR BG <70 & pt unresponsive Diltiazem HCl 180 mg 12/01/24 09:00 12/02/24 08:57 Diltiazem Cd 180 Mg Capcr PO 12/31/24 08:59 180 mg QDAY TAI Administration Fluoxetine HCl 40 mg 12/01/24 09:00 12/02/24 08:57 Fluoxetine Hcl 10 Mg Capsule PO 12/31/24 08:59 40 mg QDAY TAI Administration Fluticasone Propionate 1 spray 12/01/24 12:32 Fluticasone Emmanuel [place] 0.05% 16 Gm Btl NASAL 12/31/24 12:31 Q12H PRN nasal congestion Glucagon 1 mg 11/30/24 21:21 Glucagon Inj 1 Mg Vial IM Q15MIN PRN BG <70, and no IV access Heparin Sodium (Porcine) 5,000 unit 11/30/24 21:00 11/30/24 20:38 Heparin Sod Inj 5000 Unit/Ml Vial SC 12/14/24 20:59 5,000 unit BID TAI Administration Magnesium Sulfate 4 gm in 50 mls @ 12.5 mls/hr 12/02/24 07:54 12/02/24 08:56 Magnesium Sulfate Ivpb IV 12/02/24 11:53 12.5 mls/hr X1 ONE Administration Insulin Human Lispro 0 unit 12/01/24 07:30 12/02/24 07:36 Insulin Lispro (Admelog) 1 Unit/0.01 Ml Unit SC 12/31/24 07:29 2 unit AC TAI Administration Protocol Lorazepam 0.5 mg 11/30/24 21:23 12/01/24 20:14 Lorazepam 0.5 Mg Tablet PO 12/05/24 21:22 0.5 mg HS PRN Administration anxiety Ondansetron HCl 4 mg 11/30/24 17:54 12/01/24 21:39 Ondansetron Inj 2 Mg/Ml Inj 2 Ml IV 12/30/24 17:53 4 mg Q6H PRN Administration NAUSEA OR VOMITING Protocol Pantoprazole Sodium 40 mg 11/30/24 18:00 12/02/24 08:57 Pantoprazole Inj 40 Mg Vial IVP 12/30/24 17:59 40 mg QDAY TAI Administration Fluticasone- 1 ea 12/02/24 09:00 12/02/24 09:34 Umeclidin-Vilanter [ INH 12/31/24 12:44 1 puff Trelegy Ellipta] 200 QDAY TAI Administration Polyethylene Glycol 17 gm 12/02/24 10:15 12/02/24 10:23 Polyethylene Glycol 17 Gm Packet PO 01/01/25 10:14 17 gm QDAY TAI Administration Sennosides 1 tab 12/02/24 10:02 Senna Tablet PO 01/01/25 10:01 QDAY PRN CONSTIPATION Protocol Vitamin B Complex/Vit C/Folic Acid 1 tab 12/01/24 09:00 12/02/24 08:57 Vit B12/Vit C/Fa (Nephrovite) Tablet PO 12/31/24 08:59 1 tab QDAY TAI Administration Plan Ms. Vega is a 69-year-old female medical history significant for hypertension, hyperlipidemia, COPD, type 2 diabetes, history of renal cell carcinoma status post right nephrectomy, history of ischemic stroke in 2019 presents to the ED complaining of progressive bilateral weakness in lower extremities for the past 2 weeks and has been using a walker for 2 weeks. #Lower extremities weakness, bilateral -although patient did not have recent URI or diarrhea like symptoms, pt has cough 2 weeks ago that resolved spontaneously -Pt starting taking ativan 2-3 weeks ago at night and pt had a fall due to legs giving up at night -CT of head is negative for hemorrhage, mass affect or midline shift Plan: -neurology consulted, appreciate recommendations -Per neuro recommendation, Pt's will need EMG and nerve conduction of upper and lower extremities to evaluate further for nerve injury outpatient -Continue Vitamin B12/C/FA #Pulmonary nodules, bilateral #hx. of renal cell carcinoma s/p R. nephrectomy -Pt has history of right renal cell carcinoma and underwent right nephrectomy without radiation or chemo -Pt was found to have benign thyroid and left breast nodules -CT chest/abdomen/pelvis: Pulmonary lung masses, the largest 3.4 cm in the right upper lobe, highest on the differential list is lung carcinoma with metastatic mediastinal lymphadenopathy, 12mm pulmonary nodule in the left lower lobe and 8mm pulmonary nodule in the right lower lobe Plan: -Pt is scheduled for lung mass biopsy on , will continue to hold aspirin #Primary hypertension #Hyperlipidemia -Resumed home antihypertensive include diltiazem 180mg and Losartan 100mg daily -Lipid panel: triglyceride 147, Cholesterol 149, LDL 80 and HDL 40 -Resumed home atorvastatin #Non-Insulin dependent type 2 diabetes -Pt's home medications include metformin 1000mg BID and glyburide 5 mg BID -A1c 6.0 12/01/24 -Insulin sliding scale ordered with accu-checks ACHS # Hx. of acute CVA -Pt had ischemic stroke in 07/2020 without residual deficits other than when she gets anxious she has slurred speech. -Pt takes statin and aspirin daily -resumed home statin, will hold home aspirin for biopsy #Hx of COPD -Pt is a former smoker and does not use home oxygen -Pt uses trelegy inhaler once daily -Duonebs ordered PRN -Supplemental O2 as needed Health Maintenance Disposition: telemetry DVT Prophylaxis: Heparin 5000 units SC Q8 hrs GI Prophylaxis: Pantoprozol-40 IV Qday Diet: Diabetic Diet Lines: Peripheral lines Code status: Full Assessment and plan discussed with my senior resident Dr. Woodward & attending physician Dr. Jacqueline Mcclendon (PGY-1)- Internal medicine resident Attending Provider Attestation/Addendum I reviewed labs, imaging, EKG, home medications and prior available records. Face to face evaluation was performed by me. I have personally examined the patient and discussed assessment and plan with the IM team. I reviewed the resident note and agree with the plan with exceptions as below. Bilateral lower extremity weakness Lung mass History of tobacco use Discussed with neurology: Continue vitamin B therapy. No need for brain MRI or lumbar spine MRI. May need EMG as outpatient. Follow-up with neurology as outpatient Held aspirin prior to IR guided biopsy. N.p.o. after midnight for biopsy on 12/03 Follow-up PT: She will need SNF Will need 3 inpatient stays prior to placement
--- NOTE | 2024-12-02 11:40 | PD.RESPRO ---
Documentation for date of: 12/02/24 Subjective Subjective Interval history: Patient seen and assessed at bedside this morning. Patient states to be feeling better now she had a BM and bed bath. Patient pending lung biopsy and SNF placement. Patient will continue working with PT. Exam Vital Signs Temp Pulse Resp BP Pulse Ox O2 Del Method 97.5 F 88 21 H 125/80 94 L Room Air 12/02/24 08:00 12/02/24 10:36 12/02/24 09:36 12/02/24 10:36 12/02/24 09:36 12/02/24 08:00 Narrative Exam GENERAL: A&Ox3 . Awake, Not in acute distress NEURO: Equal upper extremity strength. Right lower extremity strength 3/5. Left lower extremity 4/5. Nystagmus noted during adduction both eyes. Good heel to [place], slight delay/ miss finger to nose left eye. HEENT: Atraumatic, Normocephalic. mucous membranes moist. PERRLA, EOMI HEART: RRR , No M/R/G. LUNGS: Clear to auscultation with no wheezing or crackles. ABDOMEN: soft, non-distended, non-tender, bowel sounds heard, no guarding or rebound tenderness SKIN: No Rash. Right hand dorsum ecchymoses EXTREMITIES: No edema, no tenderness, able to move all 4 extremities. Objective Labs 12/03/24 05:07 12/03/24 05:07 Labs: Laboratory Results - last 24 hr 12/01/24 12/02/24 05:17 05:14 WBC 7.9 RBC 4.41 Hgb 13.4 Hct 39.0 MCV 88 MCH 30.4 MCHC 34.4 RDW Std Deviation 43.1 Plt Count 296 Neut % (Auto) 74 Lymph % (Auto) 14 [place] % (Auto) 10 Eos % (Auto) 1 Baso % (Auto) 0 Neut # (Auto) 5.9 Lymph # (Auto) 1.1 [place] # (Auto) 0.8 Eos # (Auto) 0.1 Baso # (Auto) 0.0 Immature Gran # (Auto) 0.04 H Absolute Nucleated RBC 0.00 Immature Gran % 1 H Nucleated RBC % 0 Sodium 137 Potassium 3.9 Chloride 105 Carbon Dioxide 23.6 Anion Gap 8 BUN 10 Creatinine 0.8 Estim Creat Clear Calc 67.0 eGFR > 60 BUN/Creatinine Ratio 13 Glucose 151 H Calculated Osmolality 275 Calcium 9.9 Corrected Calcium 10.0 Phosphorus 3.0 Magnesium 1.7 Total Bilirubin 0.4 AST 16 ALT 16 Alkaline Phosphatase 73 Total Protein 6.4 Albumin 3.9 Globulin 2.5 Albumin/Globulin Ratio 1.6 Coccidioides IgG Ab Negative Coccidioides IgM Ab Negative ABG Interpretation ABG results: 11/30/24 11:04 VBG pH 7.41 VBG pCO2 37 VBG pO2 43 VBG Base Excess -1 Quality Measures Quality Measures none Advance care planning discussed with:: patient Assessment & Plan Assessment Current Active Medications: Generic Name Dose Route Start Last Admin Trade Name Freq PRN Reason Stop Dose Admin Acetaminophen 650 mg 11/30/24 17:54 Acetaminophen 325 Mg Tablet PO 12/30/24 17:53 Q6H PRN Fever >100.4 Acetaminophen 650 mg 11/30/24 17:54 Acetaminophen 325 Mg Tablet PO 12/30/24 17:53 Q6H PRN PAIN SCALE 1-3 (mild Albuterol/Ipratropium 3 ml 11/30/24 21:31 Albuterol/Ipratropium (Duoneb) Rt Adalgisa 3 Ml Nebu INH 12/30/24 21:30 Q2HR PRN SHORTNESS OF BREATH OR WHEEZE Amlodipine Besylate 10 mg 12/02/24 09:00 12/02/24 08:58 Amlodipine Besylate 5 Mg Tablet PO 01/01/25 08:59 10 mg QDAY TAI Administration Aspirin 81 mg 12/01/24 10:15 12/01/24 12:24 Aspirin Ec 81 Mg Tabec PO 12/31/24 10:14 Not Given QDAY TAI Atorvastatin Calcium 40 mg 11/30/24 21:00 12/01/24 20:09 Atorvastatin Calcium 20 Mg Tablet PO 12/30/24 20:59 40 mg HS TAI Administration Dextrose 25 ml 11/30/24 21:21 Dextrose 50%-Water Inj 50 Ml Syringe IV 12/30/24 21:20 Q15MIN PRN BG 50-70 responsive npo pt Dextrose 50 ml 11/30/24 21:21 Dextrose 50%-Water Inj 50 Ml Syringe IV 12/30/24 21:20 Q15MIN PRN BG <50 OR BG <70 & pt unresponsive Diltiazem HCl 180 mg 12/01/24 09:00 12/02/24 08:57 Diltiazem Cd 180 Mg Capcr PO 12/31/24 08:59 180 mg QDAY TAI Administration Fluoxetine HCl 40 mg 12/01/24 09:00 12/02/24 08:57 Fluoxetine Hcl 10 Mg Capsule PO 12/31/24 08:59 40 mg QDAY TAI Administration Fluticasone Propionate 1 spray 12/01/24 12:32 Fluticasone Emmanuel [place] 0.05% 16 Gm Btl NASAL 12/31/24 12:31 Q12H PRN nasal congestion Glucagon 1 mg 11/30/24 21:21 Glucagon Inj 1 Mg Vial IM Q15MIN PRN BG <70, and no IV access Heparin Sodium (Porcine) 5,000 unit 11/30/24 21:00 11/30/24 20:38 Heparin Sod Inj 5000 Unit/Ml Vial SC 12/14/24 20:59 5,000 unit BID TAI Administration Magnesium Sulfate 4 gm in 50 mls @ 12.5 mls/hr 12/02/24 07:54 12/02/24 08:56 Magnesium Sulfate Ivpb IV 12/02/24 11:53 12.5 mls/hr X1 ONE Administration Insulin Human Lispro 0 unit 12/01/24 07:30 12/02/24 07:36 Insulin Lispro (Admelog) 1 Unit/0.01 Ml Unit SC 12/31/24 07:29 2 unit AC TAI Administration Protocol Lorazepam 0.5 mg 11/30/24 21:23 12/01/24 20:14 Lorazepam 0.5 Mg Tablet PO 12/05/24 21:22 0.5 mg HS PRN Administration anxiety Ondansetron HCl 4 mg 11/30/24 17:54 12/01/24 21:39 Ondansetron Inj 2 Mg/Ml Inj 2 Ml IV 12/30/24 17:53 4 mg Q6H PRN Administration NAUSEA OR VOMITING Protocol Pantoprazole Sodium 40 mg 11/30/24 18:00 12/02/24 08:57 Pantoprazole Inj 40 Mg Vial IVP 12/30/24 17:59 40 mg QDAY TAI Administration Fluticasone- 1 ea 12/02/24 09:00 12/02/24 09:34 Umeclidin-Vilanter [ INH 12/31/24 12:44 1 puff Trelegy Ellipta] 200 QDAY TAI Administration Polyethylene Glycol 17 gm 12/02/24 10:15 12/02/24 10:23 Polyethylene Glycol 17 Gm Packet PO 01/01/25 10:14 17 gm QDAY TAI Administration Sennosides 1 tab 12/02/24 10:02 Senna Tablet PO 01/01/25 10:01 QDAY PRN CONSTIPATION Protocol Vitamin B Complex/Vit C/Folic Acid 1 tab 12/01/24 09:00 12/02/24 08:57 Vit B12/Vit C/Fa (Nephrovite) Tablet PO 12/31/24 08:59 1 tab QDAY TAI Administration Plan #Lower extremity weakness. No acute changes noted on CT head Pending B12 and vitamin D Continue working with PT Patient will need outpatient nerve conduction study. #Diabetes mellitus #Hypertension #Pulmonary nodules #History of CVA Continue management per primary team Case discussed with attending Dr Mg Gillespie MD PGY3 Attending Provider Attestation/Addendum I personally have seen and examined the patient at the bedside and I agree with the residents findings, assessment and plan of care. Patient did ambulate with a walker and I think she will benefit from inpatient rehab for short-term following lung biopsy. Will consider doing EMG nerve conduction study of both lower extremities to evaluate for persistent lower extremity weakness more so.
[2024-12-02 12:15] LABS: Vitamin B12 231 pg/mL (211-911)
--- NOTE | 2024-12-02 15:14 | PC.SS ---
SS follow up note; SS met with patient at bedside to discuss discharge plan, SS informed her that at the time [facility] was still considering. SS presented SNF facilities patient's first choice was [place]. SS contacted J[facility] and she reported she is willing to accept patient. Patient might discharge Tomorrow or Saturday.
--- NOTE | 2024-12-02 16:23 | PC.NURSE ---
spoke to Kim CROCKER to notify CT machine down, there is possibility patient will not have ct lung biopsy tomorrow, RN will notify MD
[2024-12-02] MEDS: ATORVASTATIN CALCIUM 20 MG TABLET 40 MG PO (20:20)
[2024-12-02] MEDS: LORazepam 0.5 MG TABLET PO (20:20)
[2024-12-03] VITALS (19 sets, daily range): BP systolic 127–147; BP diastolic 56–81; PULSE 76–103; RESP 13–92; TEMP 36.2–37; O2SAT 90–99; BMI 22.5; BMI 22.4
--- NOTE | 2024-12-03 | XR_ITS ---
Examination: AP chest single view Technique one AP upright portable chest single view Exam date and time: December 03, 2024 1019 hours INDICATIONS: Post lung biopsy. FINDINGS: No pneumothorax post biopsy right pulmonary nodule Normal heart size IMPRESSION: No pneumothorax post biopsy right pulmonary nodule today
[2024-12-03 05:54] LABS: Basophils % (Auto) 1 % (0-2.5); Eosinophils # (Auto) 0.1 Thou/mm3 (0.0-0.5); Eosinophils % (Auto) 1 % (0-10); Hematocrit 39.2 % (36.0-46.0); Hemoglobin 13.4 g/dL (12.0-16.0); Immature Granulocytes % (Auto) 1 % (0-0); Immature Granulocytes Auto 0.04 Thou/mm3 (0.00-0.00); Lymphocytes # (Auto) 1.2 Thou/mm3 (1.0-4.8); Lymphocytes % (Auto) 15 % (10-50); Mean Corpuscular HGB Conc 34.2 g/dl (31.0-37.0); Mean Corpuscular Hemoglobin 30.1 pg (25.0-35.0); Mean Corpuscular Volume 88 fL (80-100); Monocytes # (Auto) 0.8 Thou/mm3 (0.0-0.8); Monocytes % (Auto) 10 % (0-12); Neutrophils # (Auto) 5.5 Thou/mm3 (1.8-7.7); Neutrophils % (Auto) 72 % (37-80); Nucleated Red Blood Cell % 0 /100 WBC (0); Platelet Count 299 Thou/mm3 (140-440); RDW Standard Deviation 42.7 fL (36.4-46.3); Red Blood Count 4.45 Miln/mm3 (4.00-5.20); White Blood Count 7.7 Thou/mm3 (3.6-11.0)
[2024-12-03 05:59] LABS: Prothrombin Time 10.5 Seconds (9.0-12.2)
[2024-12-03 06:19] LABS: Alanine Aminotransferase 15 U/L (10-49); Albumin, Serum 3.9 gm/dL (3.4-4.8); Albumin/Globulin Ratio 1.4 (1.2-2.2); Alkaline Phosphatase 73 U/L (46-116); Anion Gap 11 (7-16); Aspartate Amino Transferase 10 U/L (0-34); BUN/Creatinine Ratio 15 Ratio (12-20); Bilirubin,Total 0.4 mg/dL (0.3-1.2); Blood Urea Nitrogen 12 mg/dL (9-23); Calcium 10.2 mg/dL (8.3-10.6); Calcium (Corrected) 10.3 mg/dL (8.5-10.1); Chloride 104 mMol/L (98-107); Creatinine (Component) 0.8 mg/dL (0.6-1.3); Globulin 2.7 gm/dL (2.3-3.5); Glucose 154 mg/dL (74-106); Osmolality,Calculated 280 (275-295); Potassium 3.9 mMol/L (3.4-5.1); Sodium 139 mMol/L (136-145); Total Protein 6.6 gm/dL (5.7-8.2); eGFR > 60 See Note
[2024-12-03] MEDS: PANTOPRAZOLE INJ 40 MG VIAL IVP (08:17)
[2024-12-03] MEDS: DILTIAZEM CD 180 MG CAPCR PO (08:18)
[2024-12-03] MEDS: amLODIPine BESYLATE 5 MG TABLET 10 MG PO (08:21)
--- NOTE | 2024-12-03 09:00 | XR_ITS ---
Examination: CT guided percutaneous biopsy pulmonary mass right lung CT thorax without intravenous contrast Moderate intravenous conscious sedation Date and time of procedure: December 03, 2024 at 0942 hours INDICATIONS: 3.4 cm pulmonary mass spiculated margins right upper lobe on CT chest November 30, 2024, smoking history Informed consent provided. A timeout was completed verifying correct patient, procedure, site and positioning. Technique: Axial 3 mm sections were obtained for localization of the right lung pulmonary nodule Appropriate area is marked. The patient's site was prepped and draped in sterile fashion Maximal sterile barrier technique utilized, including hand hygiene Local anesthesia was obtained with 1% lidocaine. Low dose protocols were performed. One or more of the following dose reduction techniques were used; automated exposure control, adjustment of the mA and/or KV according to patient size, use of iterative reconstruction technique. Utilizing CT fluoroscopic guidance for core biopsies obtained of the pulmonary mass in the right lung Patient appears in stable condition during this procedure. At completion of the procedure, the patient is in satisfactory condition. Estimated blood loss 0 cc Complete pathology report to follow. Impression: Successful CT-guided percutaneous biopsy pulmonary mass right lung
[2024-12-03] MEDS: fentaNYL CIT INJ 50 mCg/ML AMP 2ML IVP (09:55)
--- NOTE | 2024-12-03 10:43 | PC.NURSE ---
1010 patient is awake, alert, breathing unalbored, s/p right lung biopsy, dressing dry with no bleeding, patient transferred to laboratory animal facility supervisor for recovery. stat chest xray ordered 1015 chest xray completed, second chest xray ordered for 1115 1043 patient awake, alert, breathing unlaabored, dressind dry with no bleeding, report given to Katy CROCKER,will transfer patient back to room 262. chest xray due 111
--- NOTE | 2024-12-03 10:45 | PC.NURSE ---
Addendum entered by Tenisha Orr RN 12/03/24 11:05: no pneumothorax seen on chest xray images per dr glass, ok to transfer back to room and second xray due 1 hr post firt chest xray (1115). Original Note: 1045 vs taken, patient transferred back to room 262 with tele box
--- NOTE | 2024-12-03 11:15 | XR_ITS ---
Examination: AP chest single view Technique one AP portable semiupright chest single view Exam date and time: December 03, 2024 1130 hours INDICATIONS: Post biopsy pulmonary nodule right lung today FINDINGS: No pneumothorax post biopsy pulmonary nodule right lung Normal heart size IMPRESSION: No pneumothorax post biopsy pulmonary nodule right lung
[2024-12-03] MEDS: VIT B12/Vit C/FA (Nephrovite) TABLET 1 TAB PO (11:48)
[2024-12-03] MEDS: FLUoxetine HCL 10 MG CAPSULE 40 MG PO (11:48)
--- NOTE | 2024-12-03 13:49 | ESPR_ITS ---
<Statement entered by Efrne Woodward MD - 12/03/24 15:26> Patient was seen and examined at the bedside. No acute overnight events were reported. Patient is feeling better and had 3 bowel movements today. Will likely give her lactulose to help with constipation. Patient is s/p right lung biopsy and has no pain. Anticipating discharge tomorrow as she will be monitored for pain management postbiopsy. Labs were unremarkable. All labs and orders were reviewed. I saw and examined the patient, and I agree with current management stated by Dr Hakan MD,PGY1. Plan of care was discussed with the attending physician and resident physician. Disclaimer: Despite multiple revisions, due to the dictation software being used, the document bellow may not be free of grammatical errors including phonetic/typographic errors. However, this does not deter from our commitment to providing health care in the patient's best interest in mind. Dr. Trace MD, PGY 2 Documentation for date of: 12/03/24 Subjective Subjective Interval history: No acute overnight events reported, pt is seen and examined at bedside after lung biopsy. Pt endorses to feeling great, denies any chest pain. Pt states she has 3 small bowel movements yesterday but feels bloated and feels like she needs something more than miralax and senna. will continue to monitor pt today post lung biopsy, vitals and labs are stable. diet is resumed, and is tolerating oral diet. Exam Vital Signs Temp Pulse Resp BP Pulse Ox O2 Del Method O2 Flow Rate 97.3 F 80 19 128/69 95 Room Air 3 12/03/24 12:12/03/24 12:12/03/24 12:12/03/24 12:12/03/24 12:12/03/24 12:12/03/24 10:05 Narrative Exam GENERAL: A&Ox3. Awake, Not in acute distress NEURO: no focal neurological deficits HEENT: Atraumatic, Normocephalic. mucous membranes moist. Eyes open, symmetrical, & clear HEART: Normal Heart Sounds LUNGS: Clear to auscultation with no wheezing or crackles. ABDOMEN: soft, non-distended, non-tender, bowel sounds heard, no guarding or rebound tenderness SKIN: No Rash or ecchymoses, bruising on right and left arm from fall at home. EXTREMITIES: No edema, tenderness, able to move all 4 extremities, pedal pulses palpated, upper and lower extremity strength is 4/5 Objective Labs 12/04/24 05:15 12/04/24 05:15 Labs: Laboratory Results - last 24 hr 12/03/24 05:07 WBC 7.7 RBC 4.45 Hgb 13.4 Hct 39.2 MCV 88 MCH 30.1 MCHC 34.2 RDW Std Deviation 42.7 Plt Count 299 Neut % (Auto) 72 Lymph % (Auto) 15 [place] % (Auto) 10 Eos % (Auto) 1 Baso % (Auto) 1 Neut # (Auto) 5.5 Lymph # (Auto) 1.2 [place] # (Auto) 0.8 Eos # (Auto) 0.1 Baso # (Auto) 0.0 Immature Gran # (Auto) 0.04 H Absolute Nucleated RBC 0.00 Immature Gran % 1 H Nucleated RBC % 0 PT 10.5 INR 1.0 Sodium 139 Potassium 3.9 Chloride 104 Carbon Dioxide 24.0 Anion Gap 11 BUN 12 Creatinine 0.8 Estim Creat Clear Calc 67.0 eGFR > 60 BUN/Creatinine Ratio 15 Glucose 154 H Calculated Osmolality 280 Calcium 10.2 Corrected Calcium 10.3 H Phosphorus 3.0 Magnesium 2.0 Total Bilirubin 0.4 AST 10 ALT 15 Alkaline Phosphatase 73 Total Protein 6.6 Albumin 3.9 Globulin 2.7 Albumin/Globulin Ratio 1.4 ABG Interpretation ABG results: 11/30/24 11:04 VBG pH 7.41 VBG pCO2 37 VBG pO2 43 VBG Base Excess -1 Quality Measures Quality Measures none Advance care planning discussed with:: patient Assessment & Plan Assessment Current Active Medications: Generic Name Dose Route Start Last Admin Trade Name Freq PRN Reason Stop Dose Admin Acetaminophen 650 mg 11/30/24 17:54 Acetaminophen 325 Mg Tablet PO 12/30/24 17:53 Q6H PRN Fever >100.4 Acetaminophen 650 mg 11/30/24 17:54 Acetaminophen 325 Mg Tablet PO 12/30/24 17:53 Q6H PRN PAIN SCALE 1-3 (mild Albuterol/Ipratropium 3 ml 11/30/24 21:31 Albuterol/Ipratropium (Duoneb) Rt Adalgisa 3 Ml Nebu INH 12/30/24 21:30 Q2HR PRN SHORTNESS OF BREATH OR WHEEZE Amlodipine Besylate 10 mg 12/02/24 09:00 12/03/24 08:21 Amlodipine Besylate 5 Mg Tablet PO 01/01/25 08:59 10 mg QDAY TAI Administration Aspirin 81 mg 12/01/24 10:15 12/01/24 12:24 Aspirin Ec 81 Mg Tabec PO 12/31/24 10:14 Not Given QDAY TAI Atorvastatin Calcium 40 mg 11/30/24 21:00 12/02/24 20:20 Atorvastatin Calcium 20 Mg Tablet PO 12/30/24 20:59 40 mg HS TAI Administration Dextrose 25 ml 11/30/24 21:21 Dextrose 50%-Water Inj 50 Ml Syringe IV 12/30/24 21:20 Q15MIN PRN BG 50-70 responsive npo pt Dextrose 50 ml 11/30/24 21:21 Dextrose 50%-Water Inj 50 Ml Syringe IV 12/30/24 21:20 Q15MIN PRN BG <50 OR BG <70 & pt unresponsive Diltiazem HCl 180 mg 12/01/24 09:00 12/03/24 08:18 Diltiazem Cd 180 Mg Capcr PO 12/31/24 08:59 180 mg QDAY TAI Administration Fluoxetine HCl 40 mg 12/01/24 09:00 12/03/24 11:48 Fluoxetine Hcl 10 Mg Capsule PO 12/31/24 08:59 40 mg QDAY TAI Administration Fluticasone Propionate 1 spray 12/01/24 12:32 Fluticasone Emmanuel [place] 0.05% 16 Gm Btl NASAL 12/31/24 12:31 Q12H PRN nasal congestion Glucagon 1 mg 11/30/24 21:21 Glucagon Inj 1 Mg Vial IM Q15MIN PRN BG <70, and no IV access Heparin Sodium (Porcine) 5,000 unit 11/30/24 21:00 11/30/24 20:38 Heparin Sod Inj 5000 Unit/Ml Vial SC 12/14/24 20:59 5,000 unit BID TAI Administration Insulin Human Lispro 0 unit 12/01/24 07:30 12/03/24 11:13 Insulin Lispro (Admelog) 1 Unit/0.01 Ml Unit SC 12/31/24 07:29 Not Given AC TAI Protocol Lorazepam 0.5 mg 11/30/24 21:23 12/02/24 20:20 Lorazepam 0.5 Mg Tablet PO 12/05/24 21:22 0.5 mg HS PRN Administration anxiety Ondansetron HCl 4 mg 11/30/24 17:54 12/01/24 21:39 Ondansetron Inj 2 Mg/Ml Inj 2 Ml IV 12/30/24 17:53 4 mg Q6H PRN Administration NAUSEA OR VOMITING Protocol Pantoprazole Sodium 40 mg 11/30/24 18:00 12/03/24 08:17 Pantoprazole Inj 40 Mg Vial IVP 12/30/24 17:59 40 mg QDAY TAI Administration Fluticasone- 1 ea 12/02/24 09:00 12/03/24 10:57 Umeclidin-Vilanter [ INH 12/31/24 12:44 1 puff Trelegy Ellipta] 200 QDAY TAI Administration Polyethylene Glycol 17 gm 12/02/24 10:15 12/03/24 11:49 Polyethylene Glycol 17 Gm Packet PO 01/01/25 10:14 Not Given QDAY TAI Sennosides 1 tab 12/02/24 10:02 Senna Tablet PO 01/01/25 10:01 QDAY PRN CONSTIPATION Protocol Vitamin B Complex/Vit C/Folic Acid 1 tab 12/01/24 09:00 12/03/24 11:48 Vit B12/Vit C/Fa (Nephrovite) Tablet PO 12/31/24 08:59 1 tab QDAY TAI Administration Plan Ms. Vega is a 69-year-old female medical history significant for hypertension, hyperlipidemia, COPD, type 2 diabetes, history of renal cell carcinoma status post right nephrectomy, history of ischemic stroke in 2019 presents to the ED complaining of progressive bilateral weakness in lower extremities for the past 2 weeks and has been using a walker for 2 weeks. #Lower extremities weakness, bilateral -although patient did not have recent URI or diarrhea like symptoms, pt has cough 2 weeks ago that resolved spontaneously -Pt starting taking ativan 2-3 weeks ago at night and pt had a fall due to legs giving up at night -CT of head is negative for hemorrhage, mass affect or midline shift Plan: -neurology consulted, appreciate recommendations -Per neuro recommendation, Pt's will need EMG and nerve conduction of upper and lower extremities to evaluate further for nerve injury outpatient -Continue Vitamin B12/C/FA #Pulmonary nodules, bilateral #hx. of renal cell carcinoma s/p R. nephrectomy -Pt has history of right renal cell carcinoma and underwent right nephrectomy without radiation or chemo -Pt was found to have benign thyroid and left breast nodules -CT chest/abdomen/pelvis: Pulmonary lung masses, the largest 3.4 cm in the right upper lobe, highest on the differential list is lung carcinoma with metastatic mediastinal lymphadenopathy, 12mm pulmonary nodule in the left lower lobe and 8mm pulmonary nodule in the right lower lobe Plan: -Pt is status post lung mass biopsy, pt will need to follow up outpatient for biopsy results #Primary hypertension #Hyperlipidemia -Resumed home antihypertensive include diltiazem 180mg and Losartan 100mg daily -Lipid panel: triglyceride 147, Cholesterol 149, LDL 80 and HDL 40 -Resumed home atorvastatin #Non-Insulin dependent type 2 diabetes -Pt's home medications include metformin 1000mg BID and glyburide 5 mg BID -A1c 6.0 12/01/24 -Insulin sliding scale ordered with accu-checks ACHS # Hx. of acute CVA -Pt had ischemic stroke in 07/2020 without residual deficits other than when she gets anxious she has slurred speech. -Pt takes statin and aspirin daily -resumed home statin and aspirin #Hx of COPD -Pt is a former smoker and does not use home oxygen -Pt uses trelegy inhaler once daily -Duonebs ordered PRN -Supplemental O2 as needed Health Maintenance Disposition: telemetry DVT Prophylaxis: Heparin 5000 units SC Q8 hrs GI Prophylaxis: Pantoprozol-40 IV Qday Diet: Diabetic Diet Lines: Peripheral lines Code status: Full Assessment and plan discussed with my senior resident Dr. Woodward & attending physician Dr. Jacqueline Mcclendon (PGY-1)- Internal medicine resident Attending Provider Attestation/Addendum I reviewed labs, imaging, EKG, home medications and prior available records. Face to face evaluation was performed by me. I have personally examined the patient and discussed assessment and plan with the IM team. I reviewed the resident note and agree with the plan with exceptions as below. Bilateral lower extremity weakness Lung mass History of tobacco use Discussed with neurology: Continue vitamin B therapy. No need for brain MRI or lumbar spine MRI. May need EMG as outpatient. Follow-up with neurology as outpatient S/p biopsy of lung mass on 12/03. Follow-up with the results as outpatient Monitor for 24 hours after the biopsy. Management of pain as needed Follow-up PT: She will need SNF
[2024-12-03] MEDS: LACTULOSE SYRUP 20 GM/30 ML UDC 10 GM PO (15:10)
[2024-12-03] MEDS: ASPIRIN EC 81 MG TABEC PO (15:56)
--- NOTE | 2024-12-03 16:46 | PD.RESPRO ---
Documentation for date of: 12/03/24 Subjective Subjective Interval history: Patient seen and assessed at bedside. Patient states to be feeling well and is doing lower extremity exercises. Patient tolerated lung biopsy well and is pending pathology. Exam Vital Signs Temp Pulse Resp BP Pulse Ox O2 Del Method O2 Flow Rate 97.3 F 80 19 128/69 95 Room Air 3 12/03/24 12:00 12/03/24 12:00 12/03/24 12:00 12/03/24 12:00 12/03/24 12:00 12/03/24 12:00 12/03/24 10:05 Narrative Exam GENERAL: A&Ox3 . Awake, Not in acute distress NEURO: Equal upper extremity strength. Right lower extremity strength 4/5. Left lower extremity 4/5. HEART: RRR , No M/R/G. LUNGS: Clear to auscultation with no wheezing or crackles. ABDOMEN: soft, non-distended, non-tender, bowel sounds heard, no guarding or rebound tenderness SKIN: No Rash. Right hand dorsum ecchymoses EXTREMITIES: No edema, no tenderness, able to move all 4 extremities. Objective Labs 12/03/24 05:07 12/03/24 05:07 Labs: Laboratory Results - last 24 hr 12/03/24 05:07 WBC 7.7 RBC 4.45 Hgb 13.4 Hct 39.2 MCV 88 MCH 30.1 MCHC 34.2 RDW Std Deviation 42.7 Plt Count 299 Neut % (Auto) 72 Lymph % (Auto) 15 [place] % (Auto) 10 Eos % (Auto) 1 Baso % (Auto) 1 Neut # (Auto) 5.5 Lymph # (Auto) 1.2 [place] # (Auto) 0.8 Eos # (Auto) 0.1 Baso # (Auto) 0.0 Immature Gran # (Auto) 0.04 H Absolute Nucleated RBC 0.00 Immature Gran % 1 H Nucleated RBC % 0 PT 10.5 INR 1.0 Sodium 139 Potassium 3.9 Chloride 104 Carbon Dioxide 24.0 Anion Gap 11 BUN 12 Creatinine 0.8 Estim Creat Clear Calc 67.0 eGFR > 60 BUN/Creatinine Ratio 15 Glucose 154 H Calculated Osmolality 280 Calcium 10.2 Corrected Calcium 10.3 H Phosphorus 3.0 Magnesium 2.0 Total Bilirubin 0.4 AST 10 ALT 15 Alkaline Phosphatase 73 Total Protein 6.6 Albumin 3.9 Globulin 2.7 Albumin/Globulin Ratio 1.4 ABG Interpretation ABG results: 11/30/24 11:04 VBG pH 7.41 VBG pCO2 37 VBG pO2 43 VBG Base Excess -1 Quality Measures Quality Measures none Advance care planning discussed with:: patient Assessment & Plan Assessment Current Active Medications: Generic Name Dose Route Start Last Admin Trade Name Freq PRN Reason Stop Dose Admin Acetaminophen 650 mg 11/30/24 17:54 Acetaminophen 325 Mg Tablet PO 12/30/24 17:53 Q6H PRN Fever >100.4 Acetaminophen 650 mg 11/30/24 17:54 Acetaminophen 325 Mg Tablet PO 12/30/24 17:53 Q6H PRN PAIN SCALE 1-3 (mild Albuterol/Ipratropium 3 ml 11/30/24 21:31 Albuterol/Ipratropium (Duoneb) Rt Adalgisa 3 Ml Nebu INH 12/30/24 21:30 Q2HR PRN SHORTNESS OF BREATH OR WHEEZE Amlodipine Besylate 10 mg 12/02/24 09:00 12/03/24 08:21 Amlodipine Besylate 5 Mg Tablet PO 01/01/25 08:59 10 mg QDAY TAI Administration Aspirin 81 mg 12/01/24 10:15 12/03/24 15:56 Aspirin Ec 81 Mg Tabec PO 12/31/24 10:14 81 mg QDAY TAI Administration Atorvastatin Calcium 40 mg 11/30/24 21:00 12/02/24 20:20 Atorvastatin Calcium 20 Mg Tablet PO 12/30/24 20:59 40 mg HS TAI Administration Dextrose 25 ml 11/30/24 21:21 Dextrose 50%-Water Inj 50 Ml Syringe IV 12/30/24 21:20 Q15MIN PRN BG 50-70 responsive npo pt Dextrose 50 ml 11/30/24 21:21 Dextrose 50%-Water Inj 50 Ml Syringe IV 12/30/24 21:20 Q15MIN PRN BG <50 OR BG <70 & pt unresponsive Diltiazem HCl 180 mg 12/01/24 09:00 12/03/24 08:18 Diltiazem Cd 180 Mg Capcr PO 12/31/24 08:59 180 mg QDAY TAI Administration Fluoxetine HCl 40 mg 12/01/24 09:00 12/03/24 11:48 Fluoxetine Hcl 10 Mg Capsule PO 12/31/24 08:59 40 mg QDAY TAI Administration Fluticasone Propionate 1 spray 12/01/24 12:32 Fluticasone Emmanuel [place] 0.05% 16 Gm Btl NASAL 12/31/24 12:31 Q12H PRN nasal congestion Glucagon 1 mg 11/30/24 21:21 Glucagon Inj 1 Mg Vial IM Q15MIN PRN BG <70, and no IV access Heparin Sodium (Porcine) 5,000 unit 11/30/24 21:00 11/30/24 20:38 Heparin Sod Inj 5000 Unit/Ml Vial SC 12/14/24 20:59 5,000 unit BID TAI Administration Insulin Human Lispro 0 unit 12/01/24 07:30 12/03/24 16:29 Insulin Lispro (Admelog) 1 Unit/0.01 Ml Unit SC 12/31/24 07:29 Not Given AC TAI Protocol Lorazepam 0.5 mg 11/30/24 21:23 12/02/24 20:20 Lorazepam 0.5 Mg Tablet PO 12/05/24 21:22 0.5 mg HS PRN Administration anxiety Ondansetron HCl 4 mg 11/30/24 17:54 12/01/24 21:39 Ondansetron Inj 2 Mg/Ml Inj 2 Ml IV 12/30/24 17:53 4 mg Q6H PRN Administration NAUSEA OR VOMITING Protocol Pantoprazole Sodium 40 mg 11/30/24 18:00 12/03/24 08:17 Pantoprazole Inj 40 Mg Vial IVP 12/30/24 17:59 40 mg QDAY TAI Administration Fluticasone- 1 ea 12/02/24 09:00 12/03/24 10:57 Umeclidin-Vilanter [ INH 12/31/24 12:44 1 puff Trelegy Ellipta] 200 QDAY TAI Administration Polyethylene Glycol 17 gm 12/02/24 10:15 12/03/24 11:49 Polyethylene Glycol 17 Gm Packet PO 01/01/25 10:14 Not Given QDAY TAI Sennosides 1 tab 12/02/24 10:02 Senna Tablet PO 01/01/25 10:01 QDAY PRN CONSTIPATION Protocol Vitamin B Complex/Vit C/Folic Acid 1 tab 12/01/24 09:00 12/03/24 11:48 Vit B12/Vit C/Fa (Nephrovite) Tablet PO 12/31/24 08:59 1 tab QDAY TAI Administration Plan #Lower extremity weakness. No acute changes noted on CT head Vitamin B12 and vitamin D at lower limits of normal Continue working with PT Patient will need outpatient nerve conduction study. #Diabetes mellitus #Hypertension #Pulmonary nodules #History of CVA Continue management per primary team Case discussed with attending Dr Mg Gillespie MD PGY3
[2024-12-03] MEDS: LORazepam 0.5 MG TABLET PO (20:08)
[2024-12-03] MEDS: ATORVASTATIN CALCIUM 20 MG TABLET 40 MG PO (20:08)
[2024-12-04] VITALS (7 sets, daily range): BP systolic 146–149; BP diastolic 65–86; PULSE 64–97; RESP 15–95; TEMP 36.6–36.9; O2SAT 90–96; BMI 22.4
[2024-12-04 06:06] LABS: Basophils % (Auto) 1 % (0-2.5); Eosinophils # (Auto) 0.1 Thou/mm3 (0.0-0.5); Eosinophils % (Auto) 1 % (0-10); Hemoglobin 13.8 g/dL (12.0-16.0); Immature Granulocytes % (Auto) 0 % (0-0); Immature Granulocytes Auto 0.02 Thou/mm3 (0.00-0.00); Lymphocytes # (Auto) 1.1 Thou/mm3 (1.0-4.8); Lymphocytes % (Auto) 14 % (10-50); Mean Corpuscular HGB Conc 34.5 g/dl (31.0-37.0); Mean Corpuscular Hemoglobin 29.8 pg (25.0-35.0); Mean Corpuscular Volume 86 fL (80-100); Monocytes # (Auto) 0.8 Thou/mm3 (0.0-0.8); Monocytes % (Auto) 10 % (0-12); Neutrophils # (Auto) 6.2 Thou/mm3 (1.8-7.7); Neutrophils % (Auto) 75 % (37-80); Nucleated Red Blood Cell % 0 /100 WBC (0); Platelet Count 281 Thou/mm3 (140-440); RDW Standard Deviation 41.5 fL (36.4-46.3); Red Blood Count 4.63 Miln/mm3 (4.00-5.20); White Blood Count 8.2 Thou/mm3 (3.6-11.0)
[2024-12-04 06:28] LABS: Alanine Aminotransferase 18 U/L (10-49); Albumin, Serum 3.9 gm/dL (3.4-4.8); Albumin/Globulin Ratio 1.4 (1.2-2.2); Alkaline Phosphatase 77 U/L (46-116); Anion Gap 12 (7-16); Aspartate Amino Transferase 20 U/L (0-34); BUN/Creatinine Ratio 13 Ratio (12-20); Bilirubin,Total 0.5 mg/dL (0.3-1.2); Blood Urea Nitrogen 12 mg/dL (9-23); Calcium (Corrected) 10.1 mg/dL (8.5-10.1); Carbon Dioxide 22.7 mMol/L (20.0-31.0); Chloride 102 mMol/L (98-107); Creatinine (Component) 0.9 mg/dL (0.6-1.3); Estimated Creatinine Clearance 59.5 mL/min (>60); Globulin 2.7 gm/dL (2.3-3.5); Glucose 161 mg/dL (74-106); Magnesium 1.6 mg/dL (1.6-2.6); Osmolality,Calculated 276 (275-295); Phosphorous 3.2 mg/dL (2.4-5.1); Potassium 4.2 mMol/L (3.4-5.1); Sodium 137 mMol/L (136-145); Total Protein 6.6 gm/dL (5.7-8.2); eGFR > 60 See Note
[2024-12-04] MEDS: INSULIN LISPRO (AdmeLOG) 1 UNIT/0.01 ML UNIT SC ×2 (07:36→11:24)
[2024-12-04] MEDS: FLUoxetine HCL 10 MG CAPSULE 40 MG PO ×2 (07:44→08:33)
[2024-12-04] MEDS: ASPIRIN EC 81 MG TABEC PO (08:33)
[2024-12-04] MEDS: POLYETHYLENE GLYCOL 17 GM PACKET PO (08:33)
[2024-12-04] MEDS: DILTIAZEM CD 180 MG CAPCR PO (08:33)
[2024-12-04] MEDS: VIT B12/Vit C/FA (Nephrovite) TABLET 1 TAB PO (08:33)
[2024-12-04] MEDS: amLODIPine BESYLATE 5 MG TABLET 10 MG PO (08:34)
[2024-12-04] MEDS: PANTOPRAZOLE INJ 40 MG VIAL IVP (08:34)
[2024-12-04] MEDS: Magnesium Sulfate 4 GM Ivpb 4 GM/50 ML BAG IV (08:36)
--- NOTE | 2024-12-04 12:30 | PC.SS ---
SS was contacted by [facility] who informed SS they were contacted by JEFF Hawk for 2:30PM, SS updated patient's nurse and will notify Patient and also updated Jenna from [facility].
[2024-12-04] MEDS: LORazepam 0.5 MG TABLET PO (15:06)
--- NOTE | 2024-12-04 15:15 | ESDS_ITS ---
Planned Discharge Date 12/04/24 DS: Providers Provider Date of admission: 11/30/24 17:54 Primary care physician: Physician No Primary/Family Admitting Provider: Tai Tyler DO Attending Provider on Admission: Segundo Phillips MD Consults: 11/30/24 17:58 Referral Physical Therapy Routine Comment: Physician Instructions: 11/30/24 18:20 Consult to Neurology / Tele-Neurology Routine Comment: Consulting Provider: Agapito Holliday 11/30/24 20:16 Referral Physical Therapy Routine Comment: Physician Instructions: Attending Provider on DC: Navneet Mcclendon MD Discharging Provider: Navneet cMclendon MD DS: Diagnosis Problem List Completed Was Problem List Reviewed/Reconciled?: Yes Hospital Course Hospital Course Hospital course: Ms. Vega is a 69-year-old female medical history significant for hypertension, hyperlipidemia, COPD, type 2 diabetes, history of renal cell carcinoma status post right nephrectomy, history of ischemic stroke in 2019 presents to [facility] ED on 11/30/24 complaining of progressive bilateral weakness in lower extremities. CT of head was ordered in the ED and was negative for hemorrhage, mass effect or midline shift and neurologist Dr. Holliday was consulted. Per neuro recs patient will need outpatient EMG nerve conduction study of both upper and lower extremities. During hospitalization patient underwent physical therapy evaluation that recommended acute rehab facility. Due to patient's history of benign tumors of the kidney, breast and thyroid CT of chest abdomen pelvis was ordered which showed multiple pulmonary nodules and one of the nodules was biopsied. Preliminary report of the biopsy showed malignant cells however patient would need to follow-up outpatient with oncology and follow-up with the final report of the biopsy to determine type of cell growing whether it is primary lung cancer or metastasis. Patient is informed of the results and given information of [facility] to follow-up with radiation oncologist Dr. Bermudez. Patient is advised if her symptoms recur or worsen to promptly return to the ED. Patient is discharged to SNF. Discharge Recommendations -Follow up with your primary care within 2 weeks, to review your lung biopsy results -Take all your medications as directed -If your symptoms return or worsen return to the ED promptly -Follow up with neurologist Dr. Holliday within 2 weeks -Follow up with radiation oncologist Dr. Bermudez at [facility] within 1 week. [address] [place] [address] Phone number: Hospitalization Diagnosis #Lower extremities weakness, bilateral #Pulmonary nodules, bilateral #hx. of renal cell carcinoma s/p R. nephrectomy #Primary hypertension #Hyperlipidemia #Non-Insulin dependent type 2 diabetes # Hx. of acute CVA #Hx of COPD Assessment and plan discussed with my attending physician Dr. Jacqueline Mcclendon (PGY-1)- Internal medicine resident Time Spent with Patient Time attestation: Total time spent providing and/or coordinating discharge services: Time spent: Greater than 30 minutes Exam Vital Signs Temp Pulse Resp BP Pulse Ox O2 Del Method O2 Flow Rate 98.1 F 90 16 149/86 H 96 Room Air 3 12/04/24 12:00 12/04/24 12:00 12/04/24 12:00 12/04/24 12:00 12/04/24 12:00 12/04/24 12:00 12/03/24 10:05 Narrative Exam GENERAL: A&Ox3. Awake, Not in acute distress NEURO: no focal neurological deficits HEENT: Atraumatic, Normocephalic. mucous membranes moist. Eyes open, symmetrical, & clear HEART: Normal Heart Sounds LUNGS: Clear to auscultation with no wheezing or crackles. ABDOMEN: soft, non-distended, non-tender, bowel sounds heard, no guarding or rebound tenderness SKIN: No Rash or ecchymoses, bruising on right and left arm from fall at home. EXTREMITIES: No edema, tenderness, able to move all 4 extremities, pedal pulses palpated, upper and lower extremity strength is 4/5 Discharge Plan Plan Patient Disposition: Xfer Skilled Nsg Fac (SNF) Care Plan Goals: -Follow up with your primary care within 2 weeks, to review your lung biopsy results -Take all your medications as directed -If your symptoms return or worsen return to the ED promptly -Follow up with neurologist Dr. Holliday within 2 weeks -Follow up with radiation oncologist Dr. Bermudez at [facility] within 1 week. address: [facility] [place] [id number] Phone number: Prescriptions/Referrals Prescriptions/Med Rec: New lactulose 10 gram/15 mL solution 10 g PO QDAY PRN (Reason: constipation) Qty: 1200 0RF Continued fluoxetine 40 mg Capsule 40 mg PO QDAY glyburide 5 mg Tablet 5 mg PO BID prochlorperazine maleate 10 mg Tablet 10 mg PO QDAY PRN (Reason: Nausea And Vomiting) metformin 1,000 mg Tablet 1,000 mg PO BID diltiazem HCl 180 mg Capsule,Ext.Rel 24h Degradable 180 mg PO QDAY Rx Instructions: diltiazem cd atorvastatin 40 mg tablet 40 mg PO QDAY Nephro-Bella 0.8 mg tablet 1 tab PO QDAY aspirin [Adult Low Dose Aspirin] 81 mg tablet,delayed release (DR/EC) 81 mg PO QDAY loratadine [Allergy Relief (loratadine)] 10 mg tablet 10 mg PO QDAY PRN (Reason: allergic symptoms) amlodipine 10 mg tablet 10 mg PO QDAY lorazepam 0.5 mg tablet 0.5 mg PO HS PRN (Reason: anxiety) Patient Comments: TAKE 1 TABLET BY MOUTH EVERY DAY AT BEDTIME NEEDED FOR 30 DAYS montelukast 10 mg tablet 10 mg PO QDAY Patient Comments: TAKE 1 TABLET BY MOUTH EVERY DAY FOR 90 DAYS fluticasone propionate 50 mcg/actuation spray,suspension 1 spray INTRANASAL Q12H PRN (Reason: nasal congestion) Trelegy Ellipta 200-62.5-25 mcg blister with device 1 inh inhalation QDAY Referrals: No Primary/Family,Physician [Primary Care Provider] - Patient/Caregiver Discharge Instructions Print Language: Burmese Stand Alone Forms: Emiliana Award Info., Patient Portal Info Letter Discharge Order Discharge Orders: Discharge (Routine); Ordered 12/04/24 Ordered By: Efren Woodward Quality Discharge Quality Measures VTE prophylaxis Attestestation Attestation I reviewed labs, imaging, EKG, home medications and prior available records. Face to face evaluation was performed by me. I have personally examined the patient and discussed assessment and plan with the IM team. I reviewed the resident note and agree with the plan with exceptions as below. Bilateral lower extremity weakness Lung mass History of tobacco use Discussed with neurology: Continue Nephro-Bella. No need for brain MRI or lumbar spine MRI. May need EMG as outpatient. Follow-up with neurology as outpatient S/p biopsy of lung mass on 12/03. The results came back concerning for malignancy likely primary pulmonary source. Discussed the results with the patient. Outpatient follow-up with oncology. Follow-up PT: She will go to SNF Time spent is 40 minutes. More than 50% of the time was spent on patient education and coordination of care.
--- NOTE | 2024-12-04 19:38 | PD.NEUROPROG ---
Documentation for date of: 12/04/24 Exam - Neurology Vital Signs Temp Pulse Resp BP Pulse Ox O2 Del Method O2 Flow Rate 98.1 F 90 16 149/86 H 96 Room Air 3 12/04/24 12:00 12/04/24 12:00 12/04/24 12:00 12/04/24 12:00 12/04/24 12:00 12/04/24 12:00 12/03/24 10:05 Objective Labs 12/04/24 05:15 12/04/24 05:15 Labs: Laboratory Results - last 24 hr 12/04/24 05:15 WBC 8.2 RBC 4.63 Hgb 13.8 Hct 40.0 MCV 86 MCH 29.8 MCHC 34.5 RDW Std Deviation 41.5 Plt Count 281 Neut % (Auto) 75 Lymph % (Auto) 14 [place] % (Auto) 10 Eos % (Auto) 1 Baso % (Auto) 1 Neut # (Auto) 6.2 Lymph # (Auto) 1.1 [place] # (Auto) 0.8 Eos # (Auto) 0.1 Baso # (Auto) 0.0 Immature Gran # (Auto) 0.02 H Absolute Nucleated RBC 0.00 Immature Gran % 0 Nucleated RBC % 0 Sodium 137 Potassium 4.2 Chloride 102 Carbon Dioxide 22.7 Anion Gap 12 BUN 12 Creatinine 0.9 Estim Creat Clear Calc 59.5 L eGFR > 60 BUN/Creatinine Ratio 13 Glucose 161 H Calculated Osmolality 276 Calcium 10.0 Corrected Calcium 10.1 Phosphorus 3.2 Magnesium 1.6 Total Bilirubin 0.5 AST 20 ALT 18 Alkaline Phosphatase 77 Total Protein 6.6 Albumin 3.9 Globulin 2.7 Albumin/Globulin Ratio 1.4 ABG Interpretation ABG results: 11/30/24 11:04 VBG pH 7.41 VBG pCO2 37 VBG pO2 43 VBG Base Excess -1 Assessment & Plan Assessment and plan (1) Generalized weakness: Status: Acute (2) Hypertension: Status: Chronic (3) Diabetes mellitus: Status: Chronic Additional Assessment & Plan Additional Plan: As the MRI is negative for acute infarction, patient is stable for discharge home and will need EMG and nerve conduction study of both upper extremities to evaluate further for radial nerve injury. She is advised to take B complex vitamin to promote nerve regeneration.
== END 2024-12-04 15:14 | disposition skilled nursing facility (03) | DRG 181 ==
LOC: SERX 18:04 → SERHOLD 18:09 → S2NX 19:51 → S3NX 12-03 18:42
PROVIDERS: Student in an Organized Health Care Education/Training Program; Admitting Provider Student in an Organized Health Care Education/Training Program; Emergency Provider Emergency Medicine; Visit Provider Student in an Organized Health Care Education/Training Program
DX: C34.90 Malignant neoplasm of unspecified part of unspecified bronchus or lung (principal); E87.1 Hypo-osmolality and hyponatremia; I31.39 Other pericardial effusion (noninflammatory); E87.20 Acidosis, unspecified; R53.1 Weakness; E11.9 Type 2 diabetes mellitus without complications; I10 Essential (primary) hypertension; M43.16 Spondylolisthesis, lumbar region; E78.5 Hyperlipidemia, unspecified; J44.9 Chronic obstructive pulmonary disease, unspecified; K59.00 Constipation, unspecified; G56.32 Lesion of radial nerve, left upper limb; F40.00 Agoraphobia, unspecified; N63.20 Unspecified lump in the left breast, unspecified quadrant; R09.81 Nasal congestion; I69.328 Other speech and language deficits following cerebral infarction; R59.1 Generalized enlarged lymph nodes; E04.2 Nontoxic multinodular goiter; Z90.5 Acquired absence of kidney; F41.0 Panic disorder [episodic paroxysmal anxiety]; Z79.84 Long term (current) use of oral hypoglycemic drugs; Z87.891 Personal history of nicotine dependence; Z85.528 Personal history of other malignant neoplasm of kidney; Z79.82 Long term (current) use of aspirin; Z91.041 Radiographic dye allergy status; R29.6 Repeated falls; H53.8 Other visual disturbances; Z88.0 Allergy status to penicillin; Z88.1 Allergy status to other antibiotic agents; W18.30XA Fall on same level, unspecified, initial encounter; Z88.8 Allergy status to other drugs, medicaments and biological substances; Z99.81 Dependence on supplemental oxygen
CPT/HCPCS: 36415; 70450; 71045; 71250; 74176; 77012; 80053; 80061; 80307; 80320; 81001; 82140; 82306; 82550; 82607; 82803; 83036; 83605; 83735; 83880; 83970; 84100; 84145; 84436; 84443; 84484; 85025; 85610; 85730; 86331; 86635; 86850; 86900; 86901; 87040; 87081; 93005; 93225; 94640; 94664; 96374; 97162; 99285; J1643; J1815; J2405; J2470; J3010; J3475; J7030; A9270; G0480

== ENCOUNTER 2024-12-24 09:55 | Outpatient (RCR) | payer MEDICARE, MEDICAID, SELFPAY ==
--- NOTE | 2024-12-24 12:47 | CTCCONSULT_ITS ---
[facility] [address] [place], [place] [address] Consultation Note Date: 12/24/2024 MR#: [id number] Name: LINNEA BUNDY : 1955 Dx: C34.11 Malignant neoplasm of upper lobe, right bronchus or lung Identification. Patient recently discharged from the hospital after being diagnosed with small cell CA of lung History of Present Illness: Patient is 69-year-old lady with history of smoking and history of renal cell CA status post right nephrectomy admitted with progressive weakness in lower extremities. CT of the brain 11/10/2024 showed no acute changes. Chest CT 11/30/2024 revealed pulmonary lung masses largest 3.4 cm in the right upper lobe with metastatic mediastinal adenopathy. There was absence of right kidney. CT-guided needle biopsy 12/03/2024 revealed small cell CA. [facility]. Reportedly has EMG nerve conduction study to be done by neurologist in a few days. Patient's 2 children has visited her from out of town and states that they may need to move for to be closer to family in [place]. Past Medical History: Tubal ligation 76 cholecystectomy 94 right nephrectomy 2010 for renal cell CA no adjuvant therapy received; hypertension CVA diabetes mellitus. COPD Meds. 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 Patient with small cell CA of the lung; based on CT scans done thus far appears to be limited to the right chest with adjacent mediastinum. 2. 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 Holliday scheduling her for EMG nerve conduction studies. 2. PET scan and brain MRI for staging 3. Port in anticipation of needed chemo. 4. Family states that she may be moving to [place] shortly due to no family to care for her in [place]. Agrees to do the preliminary studies above even if they do decide to move soon and received cancer care there. Cc: [facility]. Electronically signed by: Ricarod Bermudez MD, DABR 12/24/2024 12:45 PM
--- NOTE | 2024-12-24 14:44 | CTCCONSULT_ITS ---
[facility] [address], [place] [address] Consultation Note Date: 12/24/2024 MR#: [id number] Name: LINNAE BUNDY : 1955 Dx: C34.11 \ Addendum. Family decided to move patient to [place] in a few days. Patient will be seeing oncologist there. Spoke to family about getting records and contacts. Orders that have been ordered here will be canceled. Electronically signed by: Ricardo Bermudez MD, DABR 12/24/2024 2:41 PM
== END 2025-01-06 23:59 | disposition home or self-care (01) ==
LOC: SCTC 09:55
PROVIDERS: Referring Provider Radiology Therapeutic Radiology; Visit Provider Radiology Therapeutic Radiology
DX: C34.11 Malignant neoplasm of upper lobe, right bronchus or lung (principal); R53.1 Weakness; Z85.528 Personal history of other malignant neoplasm of kidney; Z90.5 Acquired absence of kidney
CPT/HCPCS: 99213; G0463

== ENCOUNTER 2024-12-26 11:39 | Inpatient (IN) | payer MEDICARE, MEDICAID, SELFPAY ==
[2024-12-26] VITALS (13 sets, daily range): BP systolic 121–151; BP diastolic 67–83; PULSE 81–98; RESP 16–98; TEMP 36.3–37; O2SAT 92–98; BMI 25.1
--- NOTE | 2024-12-26 11:46 | EKG_ITS ---
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
--- NOTE | 2024-12-26 11:46 | XR_ITS ---
Examination: CT brain head without contrast. 2-D sagittal coronal reconstructions Date and time of exam:December 26, 2024 1128 hrs. Indications: Stroke alert, onset right-sided facial droop and altered mental status beginning yesterday CTDI: vol (mGy):50.4 DLP: (mGycm):981 Technique: Multiple CT axial sections of the brain have been obtained, 5 mm slice thickness. Contrast has not been administered. 2-D sagittal, coronal reconstructions have been obtained Low dose protocols were performed. One or more of the following dose reduction techniques were used; automated exposure control, adjustment of the mA and/or KV according to patient size, use of iterative reconstruction technique. Findings: No significant ventricular enlargement. Intra-axial or extra-axial hemorrhage density is not seen. No mass effect or midline shift Basal cisterns are not remarkable. Fourth ventricle is midline. Cranial vault intact. Impression: Negative for acute hemorrhage, mass effect or midline shift
--- NOTE | 2024-12-26 11:46 | XR_ITS ---
Examination: CTA carotids with intravenous contrast CTA brain, head with intravenous contrast. 2-D sagittal, coronal reconstructions. 3-D reconstructions. Exam date and time: December 26, 2024 at 12:18 PM Indications: Stroke alert, onset altered mental status right-sided facial droop beginning yesterday CTDI: vol (mGy) 18.3 DLP: (mGycm) 444 Technique: Multiple CTA axial brain, head carotid images post intravenous contrast injection 100 cc, Isovue-370. 2-D sagittal, coronal reconstructions. 3-D reconstructions, 3-D post processing including vascular maximum intensity projection images. Low dose protocols were performed. One or more of the following dose reduction techniques were used; automated exposure control, adjustment of the mA and/or KV according to patient size, use of iterative reconstruction technique. Findings: Large bilateral thyroid nodules No right common carotid carotid bifurcation or internal carotid artery stenoses Moderate calcification left carotid bifurcation but no critical common carotid carotid bifurcation or internal carotid artery stenoses on the left Dominant left vertebral artery with no critical stenoses No cerebral large vessel arterial occlusions or thrombus Impression: No significant common carotid carotid bifurcation or internal carotid artery stenoses Dominant left vertebral artery with no critical stenoses No cerebral large vessel arterial occlusions
--- NOTE | 2024-12-26 11:58 | PD.EDNEURO ---
Neuro Symptoms Deficit-RME/HPI General Chief Complaint: Neuro Symptoms/Deficit Stated Complaint: stroke Time Seen by Provider: 12/26/24 11:45 Arrival date/time: 12/26/24 11:39 RME / HPI RME / HPI Narrative: 69-year-old female medical history significant for hypertension, hyperlipidemia, COPD, type 2 diabetes, history of renal cell carcinoma status post right nephrectomy, history of ischemic stroke in 2019 presents, newly diagnosed small cell carcinoma of the lung, was brought in by for evaluation regarding strokelike symptoms. Last well-known time was 5 PM today patient was noted to have right-sided facial droop with slurring of speech and unable to bear weight on the right lower extremity. Denies any recent fall or injury. Denies any headache denies any other complaints. Related Data Home Medications ?Medication ?Instructions ?Recorded ?Confirmed diltiazem HCl 180 mg 180 mg PO QDAY 01/02/19 11/30/24 capsule,extended release 24 hr, controlled fluoxetine 40 mg capsule 40 mg PO QDAY 01/02/19 11/30/24 glyburide 5 mg tablet 5 mg PO BID 01/02/19 11/30/24 metformin 1,000 mg tablet 1,000 mg PO BID 01/02/19 11/30/24 prochlorperazine maleate 10 mg 10 mg PO QDAY PRN Nausea And 01/02/19 12/01/24 tablet Vomiting atorvastatin 40 mg tablet 40 mg PO QDAY 07/11/20 11/30/24 vitamin B complex-vitamin C-folic 1 tab PO QDAY 11/30/24 11/30/24 acid 0.8 mg tablet (Nephro-Bella) amlodipine 10 mg tablet 10 mg PO QDAY 12/01/24 12/01/24 aspirin 81 mg tablet,delayed 81 mg PO QDAY 12/01/24 12/01/24 release (Adult Low Dose Aspirin) fluticasone fur. 200 mcg-umeclid 1 inh inhalation QDAY 12/01/24 12/01/24 62.5 mcg-vilant 25 mcg inhalat.powder (Trelegy Ellipta) fluticasone propionate 50 1 spray intranasal Q12H PRN nasal 12/01/24 12/01/24 mcg/actuation nasal congestion spray,suspension loratadine 10 mg tablet (Allergy 10 mg PO QDAY PRN allergic symptoms 12/01/24 12/01/24 Relief (loratadine)) lorazepam 0.5 mg tablet 0.5 mg PO HS PRN anxiety 12/01/24 12/01/24 montelukast 10 mg tablet 10 mg PO QDAY 12/01/24 12/01/24 Previous Rx's ?Medication ?Instructions ?Recorded lactulose 10 gram/15 mL oral 10 g (15 mL) PO QDAY PRN 12/04/24 solution constipation #1,200 mL Allergies Allergy/AdvReac Type Severity Reaction Status Date / Time azithromycin Allergy Verified 12/03/24 08:18 hydralazine Allergy Verified 12/03/24 08:18 iodine Allergy Verified 12/03/24 08:18 levofloxacin (From Levaquin) Allergy Verified 12/03/24 08:18 metoprolol Allergy Verified 12/03/24 08:18 nitrofurantoin Allergy Verified 12/03/24 08:18 Penicillins Allergy Verified 12/03/24 08:18 simvastatin Allergy Verified 12/03/24 08:18 fluoroquinolones Allergy Uncoded 12/03/24 08:18 Review of Systems Review of Systems Narrative Review of Systems: Review of system reviewed and within normal limits except mentioned in HPI ED Exam Narrative Physical exam: VITAL SIGNS: Reviewed. GENERAL APPEARANCE: Alert and interactive, follows commands, no acute distress, HEAD AND FACE: Non-traumatic., Right-sided facial droop ENT: PERRL, pink conjunctivitis, eyelid no trauma, Mucous membrane moist. NECK: Supple, nontender, no nuchal rigidity. CHEST: No tenderness, no crepitus, no paradoxical movement, no retractions. LUNGS: Clear, well ventilated, symmetric, no rales, no wheezing, no ronchi, no stridor, good breath sounds bilaterally. HEART: Regular rate, regular rhythm, no murmur, no gallops. ABDOMEN: Soft, positive bowel sounds, nondistended, no guarding, nontender, no rebound, no masses, RECTAL: Deferred. GENITAL: Deferred. NEUROLOGICAL: Gross motor function intact sensory function intact, Appropriate for age. MUSCULOSKELETAL: low back nontender, full range of motion. No arm drifting noted EXTREMITIES: Nontender, full range of motion. SKIN: Color pink, dry, no rash, no lacerations, no abrasions, no contusions. LYMPHATICS: Deferred. Course Quality Measures none Orders Category Date Time Status Bedside Blood Glucose NOW Care 12/26/24 11:46 Active COVID-19 Screening Questionnaire NOW Care 12/26/24 14:35 Active Brazer Helper Induction NOW Care 12/26/24 11:46 Active Continuous Pulse Oximetry NOW Care 12/26/24 11:46 Completed Decision to Admit X1 Care 12/26/24 14:35 Completed EKG (ED ONLY) *Do not use* NOW Care 12/26/24 11:46 Completed In and Out Catheter NEEDED Care 12/26/24 11:46 Active Insert IV NOW Care 12/26/24 11:46 Active NIH Stroke Scale now Care 12/26/24 11:46 Active NPO NOW Care 12/26/24 11:46 Active Nurse Swallow Screen x1 Care 12/26/24 11:46 Active Consult to Neurology / Tele-Neurology Routine Cons 12/26/24 11:[address] angio stroke protocol Stat Exams 12/26/24 11:[address] stroke protocol Stat Exams 12/26/24 11:46 Completed EKG (ED Only) Stat Exams 12/26/24 11:46 Draft CBC Stat Lab 12/26/24 12:36 Completed Comprehensive Metabolic Panel Stat Lab 12/26/24 12:36 Completed Drug Screen,Urine Stat Lab 12/26/24 15:51 Completed HCG Titer if Positive Stat Lab 12/26/24 12:36 Completed Magnesium Stat Lab 12/26/24 12:36 Completed Partial Thromboplastin Time Stat Lab 12/26/24 12:36 Completed Prothrombin Time with INR Stat Lab 12/26/24 12:36 Completed Troponin I Stat Lab 12/26/24 12:36 Completed Urinalysis Stat Lab 12/26/24 15:51 Completed Urine Culture Stat Lab 12/26/24 15:51 Received Aspirin Med 12/26/24 14:32 Discontinued 325 mg PO X1 ONE DiphenhydrAMINE INJ [Benadryl Inj] Med 12/26/24 11:59 Discontinued 25 mg IVP X1 ONE Famotidine Inj [Pepcid Inj] Med 12/26/24 12:00 Discontinued 20 mg IVP X1 ONE MethylPREDNISolone.* [SoluMEDROL Inj] Med 12/26/24 11:59 Discontinued 125 mg IVP X1 ONE Ondansetron Inj [Zofran Inj] Med 12/26/24 11:46 Active 4 mg IV Q4HR PRN Oxygen Delivery NOW RT 12/26/24 11:46 Active Vital Signs Vital signs: Vital Signs Temperature 98.6 F 12/26/24 11:42 Pulse Rate 98 12/26/24 11:42 Respiratory Rate 16 12/26/24 11:42 Blood Pressure 151/79 H 12/26/24 11:42 Pulse Oximetry (%) 97 12/26/24 11:42 Oxygen Delivery Method Nasal Cannula 12/26/24 11:42 Oxygen Flow Rate 2 12/26/24 11:42 Neuro Symptoms / Deficit MDM Narrative MDM Narrative:: 69-year-old female medical history significant for hypertension, hyperlipidemia, COPD, type 2 diabetes, history of renal cell carcinoma status post right nephrectomy, history of ischemic stroke in 2019 presents, newly diagnosed small cell carcinoma of the lung, was brought in by for evaluation regarding strokelike symptoms. Last well-known time was 5 PM yesterday patient was noted to have right-sided facial droop with slurring of speech and unable to bear weight on the right lower extremity. Denies any recent fall or injury. Denies any headache denies any other complaints. Stroke alert was initiated right away on my initial evaluation Spoke with teleneurologist who recommends giving aspirin, not a tPA candidate due to timeframe, no LVO noted. Patient was given aspirin Spoke with hospitalist who admitted the patient. Patient data External records reviewed:: [facility] previous records Clinical information provided by:: patient and EMS Social determinants that could affect healthcare access:: none Patient has the following chronic illnesses:: Hypertension lipidemia COPD type 2 diabetes mellitus renal cell carcinoma recent diagnosis of small cell carcinoma of the lung How is presenting disease/condition affected by chronic disease/condition?: exacerbated by Evaluation data The following diagnostics were reviewed and interpreted by me:: lab results and radiology exam(s) Lab and/or radiology exams considered but not ordered:: None Interpretation Summary: CBC came back unremarkable. CMP no abnormality noted. Urinalysis no UTI. CT scan of the head came back unremarkable. CTA head and neck also came back unremarkable. Medications / Prescriptions Medications or Prescriptions considered but not ordered:: None none Medication administrations:: Medication Administration History Acetaminophen (Acetaminophen 325 Mg Tablet) 650 mg PO Q6H PRN PRN Reason: Fever >101.5 Stop: 01/25/25 15:36 Albuterol/Ipratropium (Albuterol/Ipratropium (Duoneb) Rt Adalgisa 3 Ml Nebu) 3 ml INH Q4HRRT PRN PRN Reason: Shortness of breath or wheezing Stop: 01/25/25 18:59 Aspirin (Aspirin 325 Mg Tablet) 325 mg PO QDAY [facility] Stop: 01/26/25 08:59 Atorvastatin Calcium (Atorvastatin Calcium 20 Mg Tablet) 80 mg PO HS [facility] Stop: 01/25/25 20:59 Dextrose (Dextrose 50%-Water Inj 50 Ml Syringe) 25 ml IV Q15MIN PRN PRN Reason: BG 50-70 responsive npo pt Stop: 01/25/25 15:57 Dextrose (Dextrose 50%-Water Inj 50 Ml Syringe) 50 ml IV Q15MIN PRN PRN Reason: BG <50 OR BG <70 & pt unresponsive Stop: 01/25/25 15:57 Glucagon (Glucagon Inj 1 Mg Vial) 1 mg IM Q15MIN PRN PRN Reason: BG <70, and no IV access Sodium Chloride (Ns) 1,000 mls @ 75 mls/hr IV .[id number] [facility] Stop: 01/25/25 15:44 Last Admin: 12/26/24 15:40 Dose: 75 mls/hr Documented By: MURIEL Insulin Human Lispro (Insulin Lispro (Admelog) 1 Unit/0.01 Ml Unit) 0 unit SC [facility]; Protocol Stop: 01/25/25 16:59 Ondansetron HCl (Ondansetron Inj 2 Mg/Ml Inj 2 Ml) 4 mg IV Q4HR PRN PRN Reason: NAUSEA OR VOMITING Stop: 01/25/25 11:45 Discontinued Medications Aspirin (Aspirin 325 Mg Tablet) 325 mg PO X1 ONE Stop: 12/26/24 14:33 Last Admin: 12/26/24 15:30 Dose: Not Given Documented By: MURIEL Non-Admin Reason: pt states she took it am already Diphenhydramine HCl (Diphenhydramine Inj 50 Mg/Ml Vial) 25 mg IVP X1 ONE Stop: 12/26/24 12:00 Last Admin: 12/26/24 12:15 Dose: 25 mg Documented By: MURIEL Famotidine (Famotidine Inj 10 Mg/Ml Vial 2 Ml) 20 mg IVP X1 ONE Stop: 12/26/24 12:01 Last Admin: 12/26/24 12:15 Dose: 20 mg Documented By: MURIEL Methylprednisolone Sodium Succinate (Methylprednisolone Sod Succ 62.5 Mg/Ml 2ml Vial) 125 mg IVP X1 ONE Stop: 12/26/24 12:00 Last Admin: 12/26/24 12:15 Dose: 125 mg Documented By: MURIEL Patient was given methylprednisolone, Pepcid, Benadryl, aspirin was given antiallergy medication due to contrast allergy. Consultations Consultation(s) initiated? (list below): Yes Consultation #1 (Physician, Specialty, Details): Teleneurologist thank you Diagnosis Neuro Differential Diagnosis: subarachnoid hemorrhage, cerebrovascular accident and transient cerebral ischemia Most likely diagnosis given after review of the tests above:: Acute CVA Admission Indicated Admission indicated?: not indicated Admission Request Was there a request for admission?: Yes Admission Attestation Admission request attestation: Discussed case with [Dr. Newman] from Hospitalist service regarding admission. Discussed patients ED course, exam findings, labs, and radiology results. The Hospitalist [agrees] to accept the patient for admission. Disposition Plan Disposition Plan: Admit Discharge Plan Plan Patient Disposition: Admit Acute Care w/in Hospital Problem List Clinical Impression: Acute cerebrovascular accident (CVA)
[2024-12-26] MEDS: FAMOTIDINE INJ 10 MG/ML VIAL 2 ML 20 MG IVP (12:15)
[2024-12-26] MEDS: DiphenhydrAMINE INJ 50 MG/ML VIAL 25 MG IVP (12:15)
[2024-12-26] MEDS: MethylPREDNISolone SOD SUCC 62.5 MG/ML 2ML VIAL 125 MG IVP (12:15)
--- NOTE | 2024-12-26 12:21 | PD.TNEURO ---
Tele Neuro Consultation Consultation Date 12/26/24 Laboratory-Coagulation Panel [facility] Tele[facility]rology Consult Services Patient Name:???devika vu Date of :???1955 Date of Service:???12/26/2024 11:38:04 Diagnosis:?I63.89 - Cerebrovascular accident (CVA) due to other mechanism [facility]) Impression: ?69 year old female with PMH of left Alexandra's palsy, stroke, HTN, is brought in from a facility for new right sided weakness, slurred speech. ? ?She reported a contrast allergy of a rash therefore pretreat with Benadryl and Solu-Medrol ? ?I would recommend ischemic stroke workup with ?MRI of the brain without contrast, ?2D echocardiogram with bubble study to evaluate for PFO, ?vessel imaging if not already done, ?telemetry for 24 hours to detect A-fib, ?start Lipitor 80 mg p.o. and check fasting LDL and A1c ?Further management recommendations after stroke workup is complete. ?If CTA head and neck has any significant findings, will update recommendations, otherwise resume plan as above. ? Our recommendations are outlined below. Recommendations: ? Stroke/Telemetry Floor ? Neuro Checks ? Bedside Swallow Eval ? DVT Prophylaxis ? IV Fluids, Normal Saline ? Head of Bed 30 Degrees ? Euglycemia and Avoid Hyperthermia (PRN Acetaminophen) ? Initiate or continue Aspirin 325 MG daily ? Antihypertensives PRN if Blood pressure is greater than 220/120 or there is a concern for End organ damage/contraindications for permissive HTN. If blood pressure is greater than 220/120 give labetalol PO or IV or Vasotec IV with a goal of 15% reduction in BP during the first 24 hours. Sign Out: ? Discussed with Rapid Response Team Advanced Imaging: Advanced imaging has been ordered. Results pending. Metrics: Last Known Well: 12/25/2024 17:00:00 Dispatch Time: 12/26/2024 11:38:04 Arrival Time: 12/26/2024 11:35:00 Initial Response Time: 12/26/2024 11:42:08Symptoms: right facial droop . Initial patient interaction: 12/26/2024 11:45:41 NIHSS Assessment Completed: 12/26/2024 11:56:45Patient is not a candidate for Thrombolytic. Thrombolytic Medical Decision: 12/26/2024 11:56:46Patient was not deemed candidate for Thrombolytic because of following reasons: LKW outside 4.[address] head showed no acute hemorrhage or acute core infarct. Primary Provider Notified of Diagnostic Impression and Management Plan on: 12/26/2024 11:48:55 History of Present Illness:Patient is a 69 year old Female. Patient was brought by EMS for symptoms of right facial droop . 69 year old female with PMH of left Alexandra's palsy, stroke, HTN, DM and lung cancer is brought in from a facility for new right sided weakness, slurred speech. LKW 5pm yesterday. No headaches. No neck pain. She reports her right leg weakness is chronic. Past Medical History: ?Diabetes Mellitus Medications: No Anticoagulant use? No Antiplatelet use Reviewed EMR for current medications Allergies:? Reviewed Social History: Drug Use: No Family History: There is no family history of premature cerebrovascular disease pertinent to this consultation ROS : 14 Points Review of Systems was performed and was negative except mentioned in HPI. Past Surgical History: There Is No Surgical History Contributory To Today?s Visit Examination: BP(196/88),?Pulse(76),?Blood Glucose(114) 1A: Level of Consciousness - Alert; keenly responsive?+ 0 1B: Ask Month and Age - Both Questions Right?+ 0 1C: Blink Eyes & Squeeze Hands - Performs Both Tasks?+ 0 2: Test Horizontal Extraocular Movements - Normal?+ 0 3: Test Visual Walker - No Visual Loss?+ 0 4: Test Facial Palsy (Use Grimace if Obtunded) - Partial paralysis (lower face)?+ 2 5A: Test Left Arm Motor Drift - No Drift for 10 Seconds?+ 0 5B: Test Right Arm Motor Drift - No Drift for 10 Seconds?+ 0 6A: Test Left Leg Motor Drift - No Drift for 5 Seconds?+ 0 6B: Test Right Leg Motor Drift - Drift, hits bed?+ 2 7: Test Limb Ataxia (FNF/Heel-Matias) - No Ataxia?+ 0 8: Test Sensation - Normal; No sensory loss?+ 0 9: Test Language/Aphasia - Normal; No aphasia?+ 0 10: Test Dysarthria - Normal?+ 0 11: Test Extinction/Inattention - No abnormality?+ 0 NIHSS Score:?4 NIHSS Free Text :?right leg weakness old Pre-Morbid Modified [place] Scale:4 Points = Moderately severe disability; unable to walk and attend to bodily needs without assistance Spoke with :?ER team This consult was conducted in real time using interactive audio and video technology. Patient was informed of the technology being used for this visit and agreed to proceed. Patient located in hospital and provider located at home/office setting. Patient is being evaluated for possible acute neurologic impairment and high probability of imminent or life-threatening deterioration. I spent total of 50 minutes providing care to this patient, including time for face to face visit via telemedicine, review of medical records, imaging studies and discussion of findings with providers, the patient and/or family. Dr Elaine Anand [facility] For Inpatient follow-up with [facility] physician please call [facility] at . As we are not an outpatient service for any post hospital discharge needs please contact the hospital for assistance. If you have any questions for the [facility] physicians or need to reconsult for clinical or diagnostic changes please contact us via [facility] at .
[2024-12-26 12:48] LABS: Basophils # (Auto) 0.1 Thou/mm3 (0.0-0.2); Basophils % (Auto) 1 % (0-2.5); Eosinophils % (Auto) 0 % (0-10); Hematocrit 42.5 % (36.0-46.0); Hemoglobin 14.3 g/dL (12.0-16.0); Immature Granulocytes % (Auto) 0 % (0-0); Immature Granulocytes Auto 0.03 Thou/mm3 (0.00-0.00); Lymphocytes # (Auto) 1.5 Thou/mm3 (1.0-4.8); Lymphocytes % (Auto) 16 % (10-50); Mean Corpuscular HGB Conc 33.6 g/dl (31.0-37.0); Mean Corpuscular Hemoglobin 30.3 pg (25.0-35.0); Mean Corpuscular Volume 90 fL (80-100); Monocytes # (Auto) 0.9 Thou/mm3 (0.0-0.8); Monocytes % (Auto) 9 % (0-12); Neutrophils % (Auto) 74 % (37-80); Nucleated Red Blood Cell % 0 /100 WBC (0); Platelet Count 320 Thou/mm3 (140-440); RDW Standard Deviation 42.5 fL (36.4-46.3); Red Blood Count 4.72 Miln/mm3 (4.00-5.20); White Blood Count 9.4 Thou/mm3 (3.6-11.0)
[2024-12-26 13:01] LABS: Partial Thromboplastin Time 25.9 Seconds (22.0-36.0); Prothrombin Time 10.5 Seconds (9.0-12.2)
[2024-12-26 13:10] LABS: Alanine Aminotransferase 21 U/L (10-49); Albumin, Serum 4.3 gm/dL (3.4-4.8); Albumin/Globulin Ratio 1.5 (1.2-2.2); Alkaline Phosphatase 75 U/L (46-116); Anion Gap 10 (7-16); Aspartate Amino Transferase 18 U/L (0-34); BUN/Creatinine Ratio 18 Ratio (12-20); Bilirubin,Total 0.5 mg/dL (0.3-1.2); Blood Urea Nitrogen 14 mg/dL (9-23); Calcium 10.3 mg/dL (8.3-10.6); Calcium (Corrected) 10.3 mg/dL (8.5-10.1); Carbon Dioxide 23.8 mMol/L (20.0-31.0); Chloride 101 mMol/L (98-107); Creatinine (Component) 0.8 mg/dL (0.6-1.3); Estimated Creatinine Clearance 59.9 mL/min (>60); Globulin 2.9 gm/dL (2.3-3.5); Glucose 104 mg/dL (74-106); Magnesium 1.4 mg/dL (1.6-2.6); Osmolality,Calculated 270 (275-295); Sodium 135 mMol/L (136-145); Total Protein 7.2 gm/dL (5.7-8.2); Troponin I < 0.020 ng/mL (0.0-0.045); eGFR > 60 See Note
[2024-12-26 13:32] LABS: HCG Titer if Positive Negative
[2024-12-26] MEDS: SODIUM CHLORIDE 0.9% 1000 ML 1,000 ML 75 ML IV (15:40)
--- NOTE | 2024-12-26 15:45 | ESHP_ITS ---
<Statement entered by Yared Gillespie MD - 12/27/24 09:47> Patient coming in with right lower extremity weakness and facial droop with slurred speech. Patient was already at SNF doing rehab for previous stroke. CT head negative CTA also negative, pending MRI and echo. Patient started on high- dose statin, aspirin, and Plavix. Pending PT and speech evaluation. Case discussed with team. Yared Gillespie MD PGY3 Documentation for date of: 12/26/24 HPI History of Present Illness History of present illness: Ms. Vega is a 69-year-old female with past medical history significant for hypertension, hyperlipidemia, COPD (not on home oxygen), type 2 diabetes, history of renal cell carcinoma status post right nephrectomy, history of ischemic stroke in 2019, newly diagnosed small cell lung carcinoma presented to the ED complaining of worsening right-sided weakness that has become more profound since . Patient's daughter is at bedside who stated that she noticed her mother right-sided facial droop as well as slurred speech which has progressively worsened which prompted her to come bring her to the emergency room. [place] she can start chemotherapy however patient was unable to do so due to new onset of these worsening symptoms. Patient states that after her last hospitalization she was sent to rehab where she underwent physical therapy every day but was unable to do so on and she spent her whole day in bed due to weakness in the right lower extremity and right arm. Although patient slurred speech had improved she continues to have right-sided facial droop and right side lower extremity weakness. The sensation is intact but patient states that she is unable to bear weight patient denies any dizziness syncopal episodes or ground- level falls. Patient states that she has noticed that she has become weak since August but was never this profound. Patient's last admission to the hospital was for stroke rule out however MRI was not done because he was determined that patient needs a nerve conduction study for her weakness. Patient denies any recent sick contacts or travel history patient denies any shortness of breath chest pain or palpitations. Patient denies any diarrhea or constipation. ED course Initial vitals include blood pressure 151/79, pulse 98 patient is saturating on 2 L of oxygen via nasal cannula CBC and CMP is unremarkable with the exception of magnesium 1.4 In the ED stroke alert was called and tele-neuro was consulted In the ED patient was given aspirin 325 x 1, methylprednisolone sodium succinate 125mg IVP x 1, famotidine 20 mg x 1, diphenhydramine HCl 25 mg IVP times PMH: Hypertension, hyperlipidemia, COPD, type 2 diabetes, history of right renal carcinoma, history of ischemic CVA, small cell lung carcinoma PSH: Right nephrectomy, left breast lumpectomy SH: Quit smoking cigarettes in 2019, denies drugs or alcohol Home Meds: Diltiazem, Trelegy, aspirin 81 mg, Ativan 0.5 mg at bedtime, atorvastatin, losartan and, metformin and 1000 mg twice daily, glyburide 5mg BID Review of Systems Review of Systems Systems Reviewed: All systems reviewed, normal except as documented Exam Vital Signs Temp Pulse Resp BP Pulse Ox O2 Del Method O2 Flow Rate 98.6 F 87 19 134/70 H 95 Oxy Mask 2 12/26/24 15:04 12/26/24 15:04 12/26/24 15:04 12/26/24 15:04 12/26/24 15:04 12/26/24 15:04 12/26/24 15:04 Narrative Exam GENERAL: A&Ox3 . Awake, Not in acute distress HEENT: Atraumatic, Normocephalic. mucous membranes moist. HEART: Normal Heart Sounds LUNGS: Clear to auscultation with no wheezing or crackles. ABDOMEN: soft, non-distended, non-tender, bowel sounds heard, no guarding or rebound tenderness SKIN: No Rash or ecchymoses EXTREMITIES: No edema, tenderness, able to move all 4 extremities, pedal pulses palpated NEURO:? ? MENTAL STATUS:?AAOx3 ? LANG/SPEECH: Fluent, intact naming, repetition & comprehension ? CRANIAL NERVES: ? II: Pupils equal and reactive, no RAPD,?normal visual field and fundus ? III, IV, : EOM intact, no gaze preference or deviation ? V: normal ? VII: Right side facial droop noted ? VIII: normal hearing to speech ? MOTOR: 5/5 in both upper extremities and 2/5 strength in right lower extremity, 5/5 strength in left lower extremity ? SENSORY: Normal to touch, temperature & pin prick in all extremities ? COORD: Normal finger to nose and heel to [place], no tremor Results: Labs 12/27/24 05:34 12/27/24 05:34 Labs: Short CBC 12/26/24 Range/Units 12:36 WBC 9.4 (3.6-11.0) Thou/mm3 Hgb 14.3 (12.0-16.0) g/dL Hct 42.5 (36.0-46.0) % Plt Count 320 D (140-440) Thou/mm3 BMP 12/26/24 12:36 Sodium 135 L Potassium 4.0 Chloride 101 Carbon Dioxide 23.8 BUN 14 Creatinine 0.8 Glucose 104 Calcium 10.3 Cardiac Enzymes 12/26/24 Range/Units 12:36 Troponin I < 0.020 (0.0-0.045) ng/mL Liver Function 12/26/24 Range/Units 12:36 Total Bilirubin 0.5 (0.3-1.2) mg/dL AST 18 (0-34) U/L ALT 21 (10-49) U/L Alkaline Phosphatase 75 (46-116) U/L Albumin 4.3 (3.4-4.8) gm/dL Quality Measures Quality Measures stroke Suspected type of Stroke: Acute Ischemic Tenecteplase given: Reason(s) Tenecteplase not given: Outside the time window not given Rehab services: PT evaluation ordered VTE Prophylaxis: not indicated Antithrombotic by day 2:: ordered (antiplatelet (ASpirin ordered) ) Statin ordered: >75 y/o moderate or high intensity dose Anticoagulation ordered for A-fib or flutter (current or hx): not indicated Advance care planning discussed with:: patient Medications Home Medications and Allergies Home Medications ?Medication ?Instructions ?Recorded ?Confirmed ?Type diltiazem HCl 180 mg 180 mg PO QDAY 01/02/1912/09 History capsule,extended release 24 hr, controlled fluoxetine 40 mg capsule 40 mg PO QDAY 01/02/1912/27 History glyburide 5 mg tablet 5 mg PO BID 01/02/19 5 History metformin 1,000 mg tablet 1,000 mg PO BID 01/02/19 History atorvastatin 40 mg tablet 40 mg PO HS 07/11/20 5 History amlodipine 10 mg tablet 10 mg PO QDAY 12/01/2412/27 History aspirin 81 mg tablet,delayed 81 mg PO QDAY 12/01/24 History release (Adult Low Dose Aspirin) fluticasone fur. 200 mcg-umeclid 1 inh inhalation QDAY 12/01/24 12/27/24 History 62.5 mcg-vilant 25 mcg inhalat.powder (Trelegy Ellipta) fluticasone propionate 50 1 spray intranasal Q12H PRN nasal 12/01/24 12/27/24 History mcg/actuation nasal congestion spray,suspension loratadine 10 mg tablet (Allergy 10 mg PO QDAY PRN all ergic symptoms 12/01/24 12/27/24 History Relief (loratadine)) lorazepam 0.5 mg tablet 0.5 mg PO Q8H PRN anxiety 12/27/24 History montelukast 10 mg tablet 10 mg PO QDAY 12/01/2412/27 History nystatin 100,000 unit/gram topical 1 applic topical BI D 12/27/24 12/27/24 History powder ondansetron HCl 8 mg tablet 8 mg PO TID PRN nausea and vomiting 12/27/24 12/27/24 History vitamin B complex-vitamin C-folic 1 tab PO QDAY 12/27/24 History acid 0.8 mg tablet (Nephro-Bella) Allergies Allergy/AdvReac Type Severity Reaction Status Date / Time azithromycin Allergy Verified 12/03/24 08:18 hydralazine Allergy Verified 12/03/24 08:18 iodine Allergy Verified 12/03/24 08:18 levofloxacin (From Levaquin) Allergy Verified 12/03/24 08:18 metoprolol Allergy Verified 12/03/24 08:18 nitrofurantoin Allergy Verified 12/03/24 08:18 Penicillins Allergy Verified 12/03/24 08:18 simvastatin Allergy Verified 12/03/24 08:18 fluoroquinolones Allergy Uncoded 12/03/24 08:18 Visit Medications Acetaminophen (Acetaminophen 325 Mg Tablet) 650 mg PO Q6H PRN PRN Reason: Fever >101.5 Stop: 01/25/25 15:36 Sodium Chloride (Ns) 1,000 mls @ 75 mls/hr IV .[id number] TAI Stop: 01/25/25 15:44 Ondansetron HCl (Ondansetron Inj 2 Mg/Ml Inj 2 Ml) 4 mg IV Q4HR PRN PRN Reason: NAUSEA OR VOMITING Stop: 01/25/25 11:45 Discontinued Medications Aspirin (Aspirin 325 Mg Tablet) 325 mg PO X1 ONE Stop: 12/26/24 14:33 Last Admin: 12/26/24 15:30 Dose: Not Given Diphenhydramine HCl (Diphenhydramine Inj 50 Mg/Ml Vial) 25 mg IVP X1 ONE Stop: 12/26/24 12:00 Last Admin: 12/26/24 12:15 Dose: 25 mg Famotidine (Famotidine Inj 10 Mg/Ml Vial 2 Ml) 20 mg IVP X1 ONE Stop: 12/26/24 12:01 Last Admin: 12/26/24 12:15 Dose: 20 mg Methylprednisolone Sodium Succinate (Methylprednisolone Sod Succ 62.5 Mg/Ml 2ml Vial) 125 mg IVP X1 ONE Stop: 12/26/24 12:00 Last Admin: 12/26/24 12:15 Dose: 125 mg Assessment & Plan Plan Ms. Vega is a 69-year-old female with past medical history significant for hypertension, hyperlipidemia, COPD (not on home oxygen), type 2 diabetes, history of renal cell carcinoma status post right nephrectomy, history of ischemic stroke in 2019, newly diagnosed small cell lung carcinoma presented to the ED complaining of worsening right-sided weakness that has become more profound since . Pt is admitted for stroke rule out. #Acute CVA, rule out Teleneuro was consulted, with recommendation of MRI pending to rule out CVA. -LKW: 12/25/2024 17:00:00 -NIHSS Score: 4 -pre morbid rank scale: 4 Points = Moderately severe disability; unable to walk and attend to bodily needs without assistance -Tele neuro consulted, recommendations appreciated -Head CTA : No significant common carotid carotid bifurcation or internal carotid artery stenoses, Dominant left vertebral artery with no critical stenoses, No cerebral large vessel arterial occlusions -Head CT : Negative for acute hemorrhage, mass effect or midline shift Plan: - Neuro checks q4HR - Keep head of bed elevated at 30 degrees - Loading dose Aspirin 325 mg x1 in the Ed -?started Aspirin 325mg and statin 80mg daily -?limit sedating meds -Euglycemia and Avoid Hyperthermia (PRN Acetaminophen) -?allow permissive HTN for first 24 hours than slowly and gradually goal normotension thereafter -?MRI with MRA brain ordered -?echo with bubble study ordered - follow up lipid panel, HbA1c, TSH with free T4 ?- Referral to PT/OT/speech therapy -In house neurologist Dr. Holliday consulted, appreciate recommendations #Small cell lung carcinoma #hx. of renal cell carcinoma s/p R. nephrectomy -Pt has history of right renal cell carcinoma and underwent right nephrectomy without radiation or chemo -Pt was found to have benign thyroid and left breast nodules -In 11/2024 CT chest/abdomen/pelvis: Pulmonary lung masses, the largest 3.4 cm in the right upper lobe, highest on the differential list is lung carcinoma with metastatic mediastinal lymphadenopathy, 12mm pulmonary nodule in the left lower lobe and 8mm pulmonary nodule in the right lower lobe -Biopsy revealed small cell lung carcinoma Plan: - Pt has consulted with radiation oncologist Dr. Bermudez at the [facility], However pt has opted out of starting chemotherapy here and rather move closer to family and consult oncology there #Primary hypertension #Hyperlipidemia -home antihypertensive include diltiazem 180mg and Losartan 100mg daily -Will hold home antihypertensives for 24 hr permissive HTN in the setting of stroke -atorvastatin 80mg daily #Non Insulin dependent type 2 diabetes -Pt's home medications include metformin 1000mg BID and glyburide 5 mg BID -Insulin sliding scale ordered with accuchecks ACHS -A1c ordered for morning labs # Hx. of acute CVA -Pt had ischemic stroke in July 2020 without residual deficits other than when she gets anxious she has slurred speech. -Pt takes statin and aspirin daily -started Pt on aspirin for acute CVA rule out #Hx of COPD -Pt is a former smoker and does not use home oxygen -Pt uses trelegy inhaler at home once daily -Duonebs ordered PRN -Supplemental O2 as needed Health Maintenance Disposition: telemetry DVT Prophylaxis: SCD Qshift GI Prophylaxis: not indicated Diet: NPO, maytake meds with water after passes nurse swallow screen Lines: Peripheral lines Code status: DNR/DNI Assessment and plan discussed with my senior resident Dr. Gillespie & attending physician Dr. Apollo Mcclendon (PGY-1)- Internal medicine resident Attending Provider Attestation/Addendum Chelita Andrews, , attest that I was physically present for the reddy portions of the service and evaluated the patient with the resident and I reviewed and discussed the case with the resident and agree with the resident's findings and plans of care as documented above Patient is a 69-year-old female with past medical history of hypertension, hyperlipidemia, COPD, type 2 diabetes, renal cell carcinoma, CVA and small cell lung carcinoma who was brought to the ED with worsening right-sided weakness. Patient states that she was feeling unwell since . She had plans to move to [place] today with her daughter where she would further follow-up with an oncologist for her newly diagnosed small cell lung cancer. However, patient's daughter noted that the patient had slurred speech today upon picking her up and patient reported worsening weakness in her right lower extremity such that she could not bear weight. On exam, patient has gross sensation in bilateral upper and lower extremities intact, muscle strength is 1 out of 5 on the right lower extremity while it is 4+ out of 5 in the bilateral upper and left lower extremities. Patient has a right facial droop as well. Initial CT head was negative for any acute CVA. Patient has been pending neurowork-up outpatient for EMG. 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 Will admit to telemetry for further workup and medical management of possible acute CVA. Will obtain an MRI with and without contrast to rule out any CVA versus metastatic lesions. Pending echocardiogram and neurology recommendations as well. Will 325 mg p.o. daily as per teleneuro recommendations.
[2024-12-26 16:00] LABS: Collection Type, Urine Clean Catch
[2024-12-26 16:22] LABS: Amphetamine/Methamp Scrn,U Negative (Negative); Barbiturate Screen,Urine Negative (Negative); Benzodiazepines Screen,Urine Negative (Negative); Benzoylecgonine Screen, Ur Negative (Negative); Fentanyl Screen,Urine Negative (Negative); Opiate Screen,Urine Negative (Negative); THC Screen,Urine Negative (Negative)
[2024-12-26 16:35] LABS: Bacteria,Urine 2+; Bilirubin,Urine Negative (Negative); Blood,Urine Negative (Negative); Color,Urine Lt-Yellow (Lt Yel-Yel); Glucose, Urine Negative (Negative); Ketones,Urine Negative (Negative); Leukocyte Esterase,Urine Negative (Negative); Nitrite,Urine Negative (Negative); Protein,Urine 2+ (Neg - Trace); RBC,Urine 4 /hpf (0-3); Specific Gravity,Urine 1.036 (1.001-1.035); Squamous Epithelial Cell,Urine < 1 /hpf (0-5); Urobilinogen,Urine Negative mg/dL (0.0-1.0); WBC,Urine 1 /hpf (0-5)
[2024-12-26 16:37] LABS: Clarity,Urine Hazy (Clear/Hazy)
[2024-12-27] VITALS (12 sets, daily range): BP systolic 132–164; BP diastolic 71–82; PULSE 77–101; RESP 12–95; TEMP 35.9–36.6; O2SAT 90–98; BMI 24.5
[2024-12-27] MEDS: SODIUM CHLORIDE 0.9% 1000 ML 1,000 ML 75 ML IV ×2 (06:07→19:39)
[2024-12-27 06:11] LABS: Basophils % (Auto) 0 % (0-2.5); Eosinophils % (Auto) 0 % (0-10); Hematocrit 43.9 % (36.0-46.0); Hemoglobin 14.6 g/dL (12.0-16.0); Immature Granulocytes % (Auto) 0 % (0-0); Immature Granulocytes Auto 0.02 Thou/mm3 (0.00-0.00); Lymphocytes # (Auto) 0.8 Thou/mm3 (1.0-4.8); Lymphocytes % (Auto) 9 % (10-50); Mean Corpuscular HGB Conc 33.3 g/dl (31.0-37.0); Mean Corpuscular Hemoglobin 29.9 pg (25.0-35.0); Mean Corpuscular Volume 90 fL (80-100); Monocytes # (Auto) 0.5 Thou/mm3 (0.0-0.8); Monocytes % (Auto) 6 % (0-12); Neutrophils # (Auto) 7.4 Thou/mm3 (1.8-7.7); Neutrophils % (Auto) 84 % (37-80); Nucleated Red Blood Cell % 0 /100 WBC (0); Platelet Count 304 Thou/mm3 (140-440); RDW Standard Deviation 42.7 fL (36.4-46.3); Red Blood Count 4.88 Miln/mm3 (4.00-5.20); White Blood Count 8.8 Thou/mm3 (3.6-11.0)
[2024-12-27 06:41] LABS: Glucose Estimated Average 120 mg/dL (80-131); Hemoglobin A1C 5.8 % Hgb (4.8-6.0)
[2024-12-27 06:59] LABS: Alanine Aminotransferase 18 U/L (10-49); Albumin, Serum 4.4 gm/dL (3.4-4.8); Albumin/Globulin Ratio 1.5 (1.2-2.2); Alkaline Phosphatase 76 U/L (46-116); Anion Gap 13 (7-16); Aspartate Amino Transferase 17 U/L (0-34); BUN/Creatinine Ratio 20 Ratio (12-20); Bilirubin,Total 0.4 mg/dL (0.3-1.2); Blood Urea Nitrogen 16 mg/dL (9-23); Calcium 10.6 mg/dL (8.3-10.6); Calcium (Corrected) 10.6 mg/dL (8.5-10.1); Carbon Dioxide 19.4 mMol/L (20.0-31.0); Cardiac Risk Estimate 3.1 RATIO (3.7-5.6); Chloride 105 mMol/L (98-107); Cholesterol 167 mg/dL (132-200); Creatinine (Component) 0.8 mg/dL (0.6-1.3); Estimated Creatinine Clearance 54.9 mL/min (>60); Free T4 (Free Thyroxine) 1.51 ng/dL (0.89-1.76); Glucose 121 mg/dL (74-106); HDL Cholesterol 54 mg/dL (40-60); LDL Cholesterol,Calculated 92 mg/dL (0-130); Magnesium 1.6 mg/dL (1.6-2.6); Osmolality,Calculated 276 (275-295); Phosphorous 3.6 mg/dL (2.4-5.1); Potassium 4.3 mMol/L (3.4-5.1); Sodium 137 mMol/L (136-145); Thyroid Stimulating Hormone 0.17 uIU/mL (0.55-4.78); Total Protein 7.4 gm/dL (5.7-8.2); Triglycerides 103 mg/dL (30-150); eGFR > 60 See Note
[2024-12-27] MEDS: Aspirin 325 MG TABLET PO (10:45)
--- NOTE | 2024-12-27 12:19 | ESPR_ITS ---
<Statement entered by Yared Gillespie MD - 12/27/24 18:19> Patient seen and assessed at bedside this morning. Patient states to be feeling well. Pending MRI, for which she will get Ativan since she is very anxious and has agoraphobia. Will continue with PT and patient started on diet as she passed speech evaluation. Case discussed with team. Yared Gillespie MD PGY3 Documentation for date of: 12/27/24 Subjective Subjective Interval history: No acute overnight events reported. Pt is seen and examined at bedside this morning. Pt continues to have weakness in the right lower extremity. Pt states that she had an appointment with Dr. Holliday for nerve conduction study but hasn't gotten around it. Pt denies dizziness, vision changes, and speech has improved, denies chest pain or palpitations. Pt states she is very hungry and denies difficulty swallowing. Pt still has right side facial droop. Vitals are stable with BP 139/81, and labs are within normal limits with the exception of Ca 10.6, Pt is recently diagnosed with small cell lung carcinoma and will start her treatments in [place]. Pt states she gets very claustrophobic during MRI therefore will need ativan or something to calm her anxiety before hand. Pt is reassured she will be prescribed something for it. Pt underwent speech eval and did great without difficulty and will resume diet. Exam Vital Signs Temp Pulse Resp BP Pulse Ox O2 Del Method O2 Flow Rate 97.3 F 96 17 164/82 H 94 L Nasal Cannula 2 12/27/24 12:00 12/27/24 12:00 12/27/24 12:00 12/27/24 12:00 12/27/24 12:00 12/27/24 12:00 12/27/24 12:00 FiO2 95 12/26/24 15:37 Narrative Exam GENERAL: A&Ox3 . Awake, Not in acute distress HEENT: Atraumatic, Normocephalic. mucous membranes moist. HEART: Normal Heart Sounds LUNGS: Clear to auscultation with no wheezing or crackles. ABDOMEN: soft, non-distended, non-tender, bowel sounds heard, no guarding or rebound tenderness SKIN: No Rash or ecchymoses EXTREMITIES: No edema, tenderness, able to move all 4 extremities, pedal pulses palpated NEURO:? ? MENTAL STATUS:?AAOx3 ? LANG/SPEECH: Fluent, intact naming, repetition & comprehension ? CRANIAL NERVES: ? II: Pupils equal and reactive, no RAPD,?normal visual field and fundus ? III, IV, : EOM intact, no gaze preference or deviation ? V: normal ? VII: Right side facial droop noted ? VIII: normal hearing to speech ? MOTOR: 5/5 in both upper extremities and 2/5 strength in right lower extremity, 5/5 strength in left lower extremity ? SENSORY: Normal to touch, temperature & pin prick in all extremities ? COORD: Normal finger to nose , no tremor Objective Labs 12/28/24 05:44 12/28/24 05:44 Labs: Laboratory Results - last 24 hr 12/26/24 12/26/24 12/27/24 12:36 15:51 05:34 WBC 9.4 8.8 RBC 4.72 4.88 Hgb 14.3 14.6 Hct 42.5 43.9 MCV 90 90 MCH 30.3 29.9 MCHC 33.6 33.3 RDW Std Deviation 42.5 42.7 Plt Count 320 D 304 Neut % (Auto) 74 84 H Lymph % (Auto) 16 9 L [place] % (Auto) 9 6 Eos % (Auto) 0 0 Baso % (Auto) 1 0 Neut # (Auto) 7.0 7.4 Lymph # (Auto) 1.5 0.8 L Spencer # (Auto) 0.9 H 0.5 Eos # (Auto) 0.0 0.0 Baso # (Auto) 0.1 0.0 Immature Gran # (Auto) 0.03 H 0.02 H Absolute Nucleated RBC 0.00 0.00 Immature Gran % 0 0 Nucleated RBC % 0 0 PT 10.5 INR 1.0 APTT 25.9 Sodium 135 L 137 Potassium 4.0 4.3 Chloride 101 105 Carbon Dioxide 23.8 19.4 L Anion Gap 10 13 BUN 14 16 Creatinine 0.8 0.8 Estim Creat Clear Calc 59.9 L 54.9 L eGFR > 60 > 60 BUN/Creatinine Ratio 18 20 Glucose [address] Glu mg/dL 120 Hemoglobin A1c 5.8 Calculated Osmolality 270 L 276 Calcium 10.3 10.6 Corrected Calcium 10.3 H 10.6 H Phosphorus 3.6 Magnesium 1.4 L 1.6 Total Bilirubin 0.5 0.4 AST 18 17 ALT 21 18 Alkaline Phosphatase 75 76 Troponin I < 0.020 Total Protein 7.2 7.4 Albumin 4.3 4.4 Globulin 2.9 3.0 Albumin/Globulin Ratio 1.5 1.5 Triglycerides 103 Cholesterol 167 LDL Cholesterol, Calc 92 HDL Cholesterol 54 Cholesterol/HDL Ratio 3.1 L TSH 0.17 L Free T4 1.51 Ur Collection Type Clean Catch Urine Color Lt-Yellow Urine Clarity Hazy Urine pH 6.0 Ur Specific [place] 1.036 H Urine Protein 2+ A Urine Glucose (UA) Negative Urine Ketones Negative Urine Blood Negative Urine Nitrite Negative Urine Bilirubin Negative Urine Urobilinogen (Auto) Negative Ur Leukocyte Esterase Negative Urine RBC 4 H Urine WBC 1 Ur Squamous Epith Cells < 1 Urine Bacteria 2+ A Urine Opiates Screen Negative Urine Fentanyl Screen Negative Ur Barbiturates Screen Negative U Amphetamin/Meth Scrn Negative U Benzodiazepines Scrn Negative U Cocaine Metab Screen Negative U Marijuana (THC) Screen Negative HCG (Qual) Negative Quality Measures Quality Measures none Advance care planning discussed with:: patient Assessment & Plan Assessment Current Active Medications: Generic Name Dose Route Start Last Admin Trade Name Freq PRN Reason Stop Dose Admin Acetaminophen 650 mg 12/26/24 15:37 Acetaminophen 325 Mg Tablet PO 01/25/25 15:36 Q6H PRN Fever >101.5 Albuterol/Ipratropium 3 ml 12/26/24 16:20 Albuterol/Ipratropium (Duoneb) Rt [place]isa 3 Ml Nebu INH 01/25/25 18:59 Q4HRRT PRN Shortness of breath or wheezing Aspirin 325 mg 12/27/24 09:00 12/27/24 10:45 Aspirin 325 Mg Tablet PO 01/26/25 08:59 325 mg QDAY TAI Administration Atorvastatin Calcium 80 mg 12/26/24 21:00 12/26/24 23:12 Atorvastatin Calcium 20 Mg Tablet PO 01/25/25 20:59 Not Given HS TAI Dextrose 25 ml 12/26/24 15:58 Dextrose 50%-Water Inj 50 Ml Syringe IV 01/25/25 15:57 Q15MIN PRN BG 50-70 responsive npo pt Dextrose 50 ml 12/26/24 15:58 Dextrose 50%-Water Inj 50 Ml Syringe IV 01/25/25 15:57 Q15MIN PRN BG <50 OR BG <70 & pt unresponsive Glucagon 1 mg 12/26/24 15:58 Glucagon Inj 1 Mg Vial IM Q15MIN PRN BG <70, and no IV access Sodium Chloride 1,000 mls @ 75 mls/hr 12/26/24 15:45 12/27/24 06:07 Ns IV 01/25/25 15:44 75 mls/hr .[id number] TAI Administration Insulin Human Lispro 0 unit 12/26/24 17:00 12/27/24 11:18 Insulin Lispro (Admelog) 1 Unit/0.01 Ml Unit SC 01/25/25 16:59 Not Given AC TAI Protocol Ondansetron HCl 4 mg 12/26/24 11:46 Ondansetron Inj 2 Mg/Ml Inj 2 Ml IV 01/25/25 11:45 Q4HR PRN NAUSEA OR VOMITING Plan Ms. Vega is a 69-year-old female with past medical history significant for hypertension, hyperlipidemia, COPD (not on home oxygen), type 2 diabetes, history of renal cell carcinoma status post right nephrectomy, history of ischemic stroke in 2019, newly diagnosed small cell lung carcinoma presented to the ED complaining of worsening right-sided weakness that has become more profound since . Pt is admitted for stroke rule out. #Acute CVA, rule out DDX: ischemic stroke, TIA, Lambert Eaton Syndrome in the setting of small cell lung carcinoma -LKW: 12/25/2024 17:00:00 -NIHSS Score: 4 -pre morbid rank scale: 4 Points = Moderately severe disability; unable to walk and attend to bodily needs without assistance -Tele neuro consulted, recommendations appreciated -Head CTA : No significant common carotid carotid bifurcation or internal carotid artery stenoses, Dominant left vertebral artery with no critical stenoses, No cerebral large vessel arterial occlusions -Head CT : Negative for acute hemorrhage, mass effect or midline shift Plan: - Neuro checks q4HR - Keep head of bed elevated at 30 degrees - Loading dose Aspirin 325 mg x1 in the Ed -?started Aspirin 325mg and statin 80mg daily -?limit sedating meds -Euglycemia and Avoid Hyperthermia (PRN Acetaminophen) -?MRI with MRA brain ordered -?echo with bubble study ordered - Lipid panel, HbA1c, TSH with free T4 all within normal limits - Referral to PT/OT/speech therapy -In house neurologist Dr. Holliday consulted, appreciate recommendations #Hypercalcemia 2/ #Small cell lung carcinoma #hx. of renal cell carcinoma s/p R. nephrectomy -Pt has history of right renal cell carcinoma and underwent right nephrectomy without radiation or chemo -Pt was found to have benign thyroid and left breast nodules -In 11/2024 CT chest/abdomen/pelvis: Pulmonary lung masses, the largest 3.4 cm in the right upper lobe, highest on the differential list is lung carcinoma with metastatic mediastinal lymphadenopathy, 12mm pulmonary nodule in the left lower lobe and 8mm pulmonary nodule in the right lower lobe -Biopsy revealed small cell lung carcinoma Plan: -On labs Ca is 10.6 likely due to small cell - Pt has consulted with radiation oncologist Dr. Bermudez at the [facility], However pt has opted out of starting chemotherapy here and rather move closer to family in [facility] and consult oncology there #Primary hypertension #Hyperlipidemia -home antihypertensive include diltiazem 180mg and Amlodipine 10mg daily -Resumed home Amlodipine -atorvastatin 80mg daily #Non Insulin dependent type 2 diabetes -Pt's home medications include metformin 1000mg BID and glyburide 5 mg BID -Insulin sliding scale ordered with accu-checks ACHS -A1c 5.8 on 12/27 # Hx. of acute CVA -Pt had ischemic stroke in July 2020 without residual deficits other than when she gets anxious she has slurred speech. -Pt takes statin and aspirin daily -started Pt on higher aspirin than home dose for acute CVA rule out #Hx of COPD -Pt is a former smoker and does not use home oxygen -Pt uses trelegy inhaler at home once daily -Duonebs ordered PRN -Supplemental O2 as needed Health Maintenance Disposition: telemetry DVT Prophylaxis: SCD Qshift GI Prophylaxis: not indicated Diet: carb consistent low Lines: Peripheral lines Code status: DNR/DNI Assessment and plan discussed with my senior resident Dr. Gillespie & attending physician Dr. Apollo Mcclendon (PGY-1)- Internal medicine resident Attending Provider Attestation/Addendum Chelita Andrews DO, attest that I was physically present for the reddy portions of the service and evaluated the patient with the resident and I reviewed and discussed the case with the resident and agree with the resident's findings and plans of care as documented above Patient seen and evaluated this AM. Speech appears improved, but continues to have right facial droop. B/L UE and LLE strength intact, but RLE MS is 2/5. Pt passed ST eval. Pending PT eval, MRI and neuro recommendations
--- NOTE | 2024-12-27 16:20 | PC.SS ---
This is 69-year-old, , single female who presented to the ED due to suffering from stroke. Patient appeared alert and oriented to self, place and situation. Patient reported that she resides at home. Prior to coming to the hospital, she was at [facility], but signed herself against medical advise. Patient reported that she is limited with her mobility. Patient has a rollator, walker, and shower chair. Patient's PCP is Dr. Ferrara at [facility] and stained glass window designer is Dr. Romo. Patient assigned her daughter, Cydney as her medical decision maker. Patient is undecided about returning home vs. going to another SNF.
[2024-12-27] MEDS: amLODIPine BESYLATE 5 MG TABLET 10 MG PO (16:21)
[2024-12-27] MEDS: FLUoxetine HCL 10 MG CAPSULE 40 MG PO (17:09)
[2024-12-27] MEDS: ATORVASTATIN CALCIUM 20 MG TABLET 80 MG PO (20:21)
[2024-12-27] MEDS: LORazepam 0.5 MG TABLET PO (20:21)
--- NOTE | 2024-12-27 23:56 | PD.VPROG1 ---
Telemedicine visit statement This visit was conducted with the use of interactive audio and video telecommunications system that permits real time communication between the patient and the provider. Patient's verbal consent for virtual visit was obtained on 12/27/24 at 2356. Documentation for date of: 12/27/24 Subjective Subjective Interval history: Patient was seen in [facility] today. No new symptoms reported, continues to have mild weakness in the right hemibody, slurred speech and dizziness Virtual exam Vital Signs Temp Pulse Resp BP Pulse Ox O2 Del Method O2 Flow Rate 97.9 F 88 22 H 139/71 H 90 L Room Air 1 12/27/24 20:00 12/27/24 20:00 12/27/24 20:00 12/27/24 20:00 12/27/24 20:00 12/27/24 20:00 12/27/24 16:00 FiO2 95 12/26/24 15:37 Objective Labs 12/27/24 05:34 12/27/24 05:34 Labs: Laboratory Results - last 24 hr 12/27/24 05:34 WBC 8.8 RBC 4.88 Hgb 14.6 Hct 43.9 MCV 90 MCH 29.9 MCHC 33.3 RDW Std Deviation 42.7 Plt Count 304 Neut % (Auto) 84 H Lymph % (Auto) 9 L [place] % (Auto) 6 Eos % (Auto) 0 Baso % (Auto) 0 Neut # (Auto) 7.4 Lymph # (Auto) 0.8 L [place] # (Auto) 0.5 Eos # (Auto) 0.0 Baso # (Auto) 0.0 Immature Gran # (Auto) 0.02 H Absolute Nucleated RBC 0.00 Immature Gran % 0 Nucleated RBC % 0 Sodium 137 Potassium 4.3 Chloride 105 Carbon Dioxide 19.4 L Anion Gap 13 BUN 16 Creatinine 0.8 Estim Creat Clear Calc 54.9 L eGFR > 60 BUN/Creatinine Ratio [address] Glu mg/dL 120 Hemoglobin A1c 5.8 Calculated Osmolality 276 Calcium 10.6 Corrected Calcium 10.6 H Phosphorus 3.6 Magnesium 1.6 Total Bilirubin 0.4 AST 17 ALT 18 Alkaline Phosphatase 76 Total Protein 7.4 Albumin 4.4 Globulin 3.0 Albumin/Globulin Ratio 1.5 Triglycerides 103 Cholesterol 167 LDL Cholesterol, Calc 92 HDL Cholesterol 54 Cholesterol/HDL Ratio 3.1 L TSH 0.17 L Free T4 1.51 Assessment & Plan Problem List (1) Weakness: Status: Acute Assessment and plan: Follow-up with brain MRI when it becomes available Continue with aspirin Plavix and statin (2) Diabetes mellitus: Status: Chronic Assessment and plan: Continue to keep the diabetes under control Check fingerstick glucose and follow sliding scale insulin per protocol (3) Hypertension: Status: Chronic Assessment and plan: Continue with aggressive blood pressure management: resuming home medications (4) Hemiparesis: Status: Acute Assessment and plan: Worsening right hemiparesis now that according to the patient, it has been progressively getting worse since August But the CT did not show anything acute.
[2024-12-28] VITALS (11 sets, daily range): BP systolic 139–149; BP diastolic 70–89; PULSE 77–97; RESP 17–93; TEMP 36–36.4; O2SAT 90–95; BMI 24.7; BMI 12.0
--- NOTE | 2024-12-28 | XR_ITS ---
Examinations: MRI Brain without intravenous contrast. MRA brain without intravenous contrast. MRA carotids without intravenous contrast 3-D vascular reconstructions Date and time of exam: December 28, 2024 1538 hrs. Indications: Stroke alert December 26, 2024, onset focal neurologic deficit right-sided facial droop Technique: Multiple axial and sagittal images of the brain have been obtained MRA brain carotid images without contrast obtained, including 3-D postprocessing, vascular maximum intensity projection images Findings: [place] is not enlarged. The optic chiasm and infundibular stalk are not remarkable. Prepontine and interpeduncular cisterns are not enlarged. No localized enlargement of the medulla or ian. Fourth ventricle and cerebellar tonsils normal in position. Subacute hemorrhage is not seen. Fourth ventricle is midline. Mass in the cerebellopontine angle region is not evident. 7th and 8th nerve complexes exhibits symmetry. Globes are symmetrical with no retro-orbital mass. Increased white matter signal prominent Diffusion-weighted images demonstrate no focus of restricted diffusion Mass-effect upon the ventricular system is not identified. MRA carotid images degraded by patient motion. MRA brain images no cerebral large vessel occlusions Impression: Negative for acute hemorrhage mass effect or midline shift No acute infarct Prominent chronic microvascular white matter change No cerebral large vessel arterial occlusions
[2024-12-28 06:17] LABS: Basophils % (Auto) 1 % (0-2.5); Eosinophils % (Auto) 1 % (0-10); Hematocrit 41.7 % (36.0-46.0); Immature Granulocytes % (Auto) 0 % (0-0); Immature Granulocytes Auto 0.02 Thou/mm3 (0.00-0.00); Lymphocytes # (Auto) 1.2 Thou/mm3 (1.0-4.8); Lymphocytes % (Auto) 13 % (10-50); Mean Corpuscular HGB Conc 33.6 g/dl (31.0-37.0); Mean Corpuscular Hemoglobin 29.9 pg (25.0-35.0); Mean Corpuscular Volume 89 fL (80-100); Monocytes % (Auto) 11 % (0-12); Neutrophils # (Auto) 6.5 Thou/mm3 (1.8-7.7); Neutrophils % (Auto) 74 % (37-80); Nucleated Red Blood Cell % 0 /100 WBC (0); Platelet Count 289 Thou/mm3 (140-440); RDW Standard Deviation 42.9 fL (36.4-46.3); Red Blood Count 4.69 Miln/mm3 (4.00-5.20); White Blood Count 8.7 Thou/mm3 (3.6-11.0)
[2024-12-28 06:54] LABS: Alanine Aminotransferase 18 U/L (10-49); Albumin/Globulin Ratio 1.5 (1.2-2.2); Alkaline Phosphatase 70 U/L (46-116); Anion Gap 8 (7-16); Aspartate Amino Transferase 21 U/L (0-34); BUN/Creatinine Ratio 17 Ratio (12-20); Bilirubin,Total 0.5 mg/dL (0.3-1.2); Blood Urea Nitrogen 12 mg/dL (9-23); Calcium 9.7 mg/dL (8.3-10.6); Calcium (Corrected) 9.7 mg/dL (8.5-10.1); Carbon Dioxide 22.9 mMol/L (20.0-31.0); Chloride 107 mMol/L (98-107); Creatinine (Component) 0.7 mg/dL (0.6-1.3); Globulin 2.6 gm/dL (2.3-3.5); Glucose 112 mg/dL (74-106); Magnesium 1.5 mg/dL (1.6-2.6); Osmolality,Calculated 276 (275-295); Phosphorous 2.2 mg/dL (2.4-5.1); Potassium 3.8 mMol/L (3.4-5.1); Sodium 138 mMol/L (136-145); Total Protein 6.6 gm/dL (5.7-8.2); eGFR > 60 See Note
[2024-12-28] MEDS: SODIUM CHLORIDE 0.9% 1000 ML 1,000 ML 75 ML IV (08:34)
[2024-12-28] MEDS: Magnesium Sulfate 4 GM Ivpb 4 GM/50 ML BAG IV (08:35)
[2024-12-28] MEDS: POT PHOS 15 mMol in NS 250 ML 15 MMOL/250 ML BAG 62.5 MMOL IV ×2 (08:35→12:53)
[2024-12-28] MEDS: DILTIAZEM CD 180 MG CAPCR PO (08:36)
[2024-12-28] MEDS: Aspirin 325 MG TABLET PO (08:37)
[2024-12-28] MEDS: FLUoxetine HCL 10 MG CAPSULE 40 MG PO (08:37)
[2024-12-28] MEDS: amLODIPine BESYLATE 5 MG TABLET 10 MG PO (08:37)
[2024-12-28] MEDS: lorataDINE 10 MG TABLET PO (09:00)
--- NOTE | 2024-12-28 09:10 | PC.SS ---
Addendum entered by Akanksha Ramirez 12/29/24 16:32: SS contacted patients daughter and she informed SS that she would like patient to discharge to [place]. SS will follow up tomorrow. Addendum entered by Akanksha Ramirez 12/28/24 14:33: SS follow up note; Patient is pending MRI and echo at the time. Addendum entered by Akanksha Ramirez 12/28/24 14:32: SS follow up note; SS met with patient at bedside, patient was on the phone with her daughter, Cydney, SS inquired about Discharge plan and patient's daughter reports patient is moving in with her in [place] and is now getting patients belonging out of patient's apartment. SS will stand by for further needs. Original Note: SS follow up note; MRI pending at the time. Patient will return back home when medically cleared.
--- NOTE | 2024-12-28 10:19 | ESPR_ITS ---
Documentation for date of: 12/28/24 Subjective Subjective Interval history: Patient was seen and examined at the bedside, no overnight events. Patient reports feeling fine and no complains today, her weakness did not change. Pending brain MRI stroke protocol and echo with bobble study. IVF discontinued. Started on clopidogrel per neuro recs and aspirin was changed to 81 mg daily. Magnesium and phosphate were repleted. Continue current management, will discuss with neurology after MRI results are back. Exam Vital Signs Temp Pulse Resp BP Pulse Ox O2 Del Method O2 Flow Rate 97.5 F 89 19 149/89 H 95 Nasal Cannula 2 12/28/24 07:59 12/28/24 08:37 12/28/24 07:59 12/28/24 08:37 12/28/24 07:59 12/28/24 07:59 12/28/24 07:59 FiO2 95 12/26/24 15:37 Narrative Exam Gen: Well-developed and well-nourished elderly female. HEENT: NCAT, PERRLA, EOMI, MMM, anicteric conjunctivae, right facial droop. CVS: normal S1 and S2. RRR. No M/R/G. Resp: CTA B/L. No rhonchi, rales, crackles or wheezing. Abd: soft, non-tender, non-distended. BS+ in all 4 quadrants. MSK: Good ROM in BUE & BLE. No edema or rash. Neuro: CN II-XII grossly intact. Strength 5/5 in BUE & LLE, 2/5 in RLE. Alert and oriented x3. Objective Labs 12/29/24 05:56 12/29/24 05:56 Labs: Laboratory Results - last 24 hr 12/28/24 05:44 WBC 8.7 RBC 4.69 Hgb 14.0 Hct 41.7 MCV 89 MCH 29.9 MCHC 33.6 RDW Std Deviation 42.9 Plt Count 289 Neut % (Auto) 74 Lymph % (Auto) 13 [place] % (Auto) 11 Eos % (Auto) 1 Baso % (Auto) 1 Neut # (Auto) 6.5 Lymph # (Auto) 1.2 [place] # (Auto) 1.0 H Eos # (Auto) 0.0 Baso # (Auto) 0.0 Immature Gran # (Auto) 0.02 H Absolute Nucleated RBC 0.00 Immature Gran % 0 Nucleated RBC % 0 Sodium 138 Potassium 3.8 D Chloride 107 Carbon Dioxide 22.9 Anion Gap 8 BUN 12 Creatinine 0.7 Estim Creat Clear Calc 68.0 eGFR > 60 BUN/Creatinine Ratio 17 Glucose 112 H Calculated Osmolality 276 Calcium 9.7 Corrected Calcium 9.7 Phosphorus 2.2 L Magnesium 1.5 L Total Bilirubin 0.5 AST 21 ALT 18 Alkaline Phosphatase 70 Total Protein 6.6 Albumin 4.0 Globulin 2.6 Albumin/Globulin Ratio 1.5 Quality Measures Quality Measures VTE prophylaxis Advance care planning discussed with:: patient Assessment & Plan Assessment Current Active Medications: Generic Name Dose Route Start Last Admin Trade Name Freq PRN Reason Stop Dose Admin Acetaminophen 650 mg 12/26/24 15:37 Acetaminophen 325 Mg Tablet PO 01/25/25 15:36 Q6H PRN Fever >101.5 Albuterol/Ipratropium 3 ml 12/26/24 16:20 Albuterol/Ipratropium (Duoneb) Rt Adalgisa 3 Ml Nebu INH 01/25/25 18:59 Q4HRRT PRN Shortness of breath or wheezing Amlodipine Besylate 10 mg 12/27/24 15:15 12/28/24 08:37 Amlodipine Besylate 5 Mg Tablet PO 01/26/25 15:14 10 mg QDAY TAI Administration Aspirin 81 mg 12/29/24 09:00 Aspirin Ec 81 Mg Tabec PO 01/28/25 08:59 QDAY TAI Atorvastatin Calcium 80 mg 12/26/24 21:00 12/27/24 20:21 Atorvastatin Calcium 20 Mg Tablet PO 01/25/25 20:59 80 mg HS TAI Administration Clopidogrel Bisulfate 75 mg 12/28/24 10:00 Clopidogrel Bisulfate 75 Mg Tablet PO 01/27/25 09:59 QDAY TAI Dextrose 25 ml 12/26/24 15:58 Dextrose 50%-Water Inj 50 Ml Syringe IV 01/25/25 15:57 Q15MIN PRN BG 50-70 responsive npo pt Dextrose 50 ml 12/26/24 15:58 Dextrose 50%-Water Inj 50 Ml Syringe IV 01/25/25 15:57 Q15MIN PRN BG <50 OR BG <70 & pt unresponsive Diltiazem HCl 180 mg 12/28/24 09:00 12/28/24 08:36 Diltiazem Cd 180 Mg Capcr PO 01/27/25 08:59 180 mg QDAY TAI Administration Fluoxetine HCl 40 mg 12/27/24 16:45 12/28/24 08:37 Fluoxetine Hcl 10 Mg Capsule PO 01/26/25 16:44 40 mg QDAY TAI Administration Glucagon 1 mg 12/26/24 15:58 Glucagon Inj 1 Mg Vial IM Q15MIN PRN BG <70, and no IV access Magnesium Sulfate 4 gm in 50 mls @ 12.5 mls/hr 12/28/24 07:37 12/28/24 08:35 Magnesium Sulfate Ivpb IV 12/28/24 11:36 12.5 mls/hr X1 ONE Administration Potassium Phosphate 15 mmol in 250 mls @ 62.5 mls/hr 12/28/24 07:37 12/28/24 08:35 Pot Phos 15 Mmol In Ns 250 Ml IV 12/28/24 15:36 62.5 mls/hr Q4H TAI Administration Insulin Human Lispro 0 unit 12/26/24 17:00 12/28/24 08:35 Insulin Lispro (Admelog) 1 Unit/0.01 Ml Unit SC 01/25/25 16:59 Not Given AC [facility] Protocol Loratadine 10 mg 12/27/24 16:33 12/28/24 09:00 Loratadine 10 Mg Tablet PO 01/26/25 16:32 10 mg QDAY PRN Administration allergic symptoms Lorazepam 2 mg 12/27/24 15:25 Lorazepam 2 Mg/Ml Vial IVP 01/01/25 15:24 X1 PRN Anxiety, Give before MRI Lorazepam 0.5 mg 12/27/24 16:33 12/27/24 20:21 Lorazepam 0.5 Mg Tablet PO 01/01/25 16:32 0.5 mg Q8H PRN Administration anxiety Ondansetron HCl 4 mg 12/26/24 11:46 Ondansetron Inj 2 Mg/Ml Inj 2 Ml IV 01/25/25 11:45 Q4HR PRN NAUSEA OR VOMITING Plan Ms. Vega is a 69-year-old female with past medical history significant for hypertension, hyperlipidemia, COPD (not on home oxygen), type 2 diabetes, history of renal cell carcinoma status post right nephrectomy, history of ischemic stroke in 2019, newly diagnosed small cell lung carcinoma presented to the ED complaining of worsening right-sided weakness that has become more profound since . Pt is admitted for stroke rule out. #Acute CVA, rule out. #Hx. of acute CVA 07/2020 with no residual symptoms. #Hx. of hyperlipidemia. DDX: ischemic stroke, TIA, Lambert Eaton Syndrome in the setting of small cell lung carcinoma. -LWK: 12/25/2024 17:00:00. -NIHSS Score: 4. -Pt had ischemic stroke in July 2020 without residual deficits other than when she gets anxious she has slurred speech. -pre morbid rank scale: 4 Points = Moderately severe disability; unable to walk and attend to bodily needs without assistance. -Tele neuro consulted, recommendations appreciated. -Head CTA : No significant common carotid carotid bifurcation or internal carotid artery stenoses, Dominant left vertebral artery with no critical stenoses, No cerebral large vessel arterial occlusions. -Head CT : Negative for acute hemorrhage, mass effect or midline shift. Plan: - Neuro checks q4HR. - Keep head of bed elevated at 30 degrees. - Aspirin 325mg decreased to 81 mg daily and statin 80mg daily. - started on clopidogrel. -?limit sedating meds. - Euglycemia and Avoid Hyperthermia (PRN Acetaminophen). -?MRI with MRA brain pending. -?echo with bubble study pending. - Referral to PT/OT/speech therapy. -In house neurologist Dr. Holliday consulted, appreciate recommendations. #Hypercalcemia 2/2 #Small cell lung carcinoma. #Hx. of renal cell carcinoma s/p R. nephrectomy. -Pt has history of right renal cell carcinoma and underwent right nephrectomy without radiation or chemo. -Pt was found to have benign thyroid and left breast nodules. -In 11/2024 CT chest/abdomen/pelvis: Pulmonary lung masses, the largest 3.4 cm in the right upper lobe, highest on the differential list is lung carcinoma with metastatic mediastinal lymphadenopathy, 12mm pulmonary nodule in the left lower lobe and 8mm pulmonary nodule in the right lower lobe. Biopsy revealed small cell lung carcinoma. -On labs Ca is 10.6 likely due to small cell - Pt has consulted with radiation oncologist Dr. Bermudez at the [facility], However pt has opted out of starting chemotherapy here and rather move closer to family in [facility] and consult oncology there Plan: -monitor with daily labs and follow up outpatient with oncologist. #Primary hypertension. -home antihypertensive include diltiazem 180mg and Amlodipine 10mg daily. Plan: -Resumed home Amlodipine and diltiazem. #Non-Insulin dependent type 2 diabetes. -Pt's home medications include metformin 1000mg BID and glyburide 5 mg BID. -A1c 5.8 on 12/27. Plan: -Insulin sliding scale ordered with accu-checks ACHS. -home meds on hold. #Hx of COPD. -Pt is a former smoker and does not use home oxygen. -Pt uses trelegy inhaler at home once daily. Plan: -Duonebs ordered PRN. -Supplemental O2 as needed. #Hx. of anxiety and depression. -resumed home fluoxetine. Health Maintenance Disposition: telemetry. DVT Prophylaxis: SCD Qshift. GI Prophylaxis: not indicated. Diet: carb consistent low. Lines: Peripheral lines. Code status: DNR/DNI. Plan of care discussed with attending Dr. Bustillos. Trent Aj MD, PGY 2. Disclaimer: This note was dictated by speech recognition. Minor errors in life enrichment director may be present due to voice recognition software. Attending Provider Attestation/Addendum Juliana, Chelita Bustillos, , attest that I was physically present for the reddy portions of the service and evaluated the patient with the resident and I reviewed and discussed the case with the resident and agree with the resident's findings and plans of care as documented above Patient seen and evaluated this AM. She continues to have 2/5 strength in RLE. Speech appears improved, but facial droop and right eye palsy remains. Pending MRI and echo read. Patient states she has a lot of anxiety since her SCC of lung has been untreated and she is supposed to be moving to [place] with her daughter. Reassurance provided to patient. Anticipate DC within next 24h if patient remains stable and workup is completed. Will start DAPT as per neuro recs.
[2024-12-28] MEDS: LORazepam 0.5 MG TABLET PO (10:50)
[2024-12-28] MEDS: CLOPIDOGREL BISULFATE 75 MG TABLET PO (10:50)
--- NOTE | 2024-12-28 12:24 | ESPR_ITS ---
Documentation for date of: 12/28/24 Subjective Subjective Interval history: Patient seen at bedside. No acute overnight events. She reports no new complaints, still endorses weakness that has not worsened or improved. Pending brain MRI as well as echo with bubble study. On examination, has right facial droop consistent with LMN lesion. In the interim: Will continue aspirin, Plavix and statin as well as physical therapy. Exam Vital Signs Temp Pulse Resp BP Pulse Ox O2 Del Method O2 Flow Rate 97.5 F 89 19 149/89 H 95 Nasal Cannula 2 12/28/24 07:59 12/28/24 08:37 12/28/24 07:59 12/28/24 08:37 12/28/24 07:59 12/28/24 07:59 12/28/24 07:59 FiO2 95 12/26/24 15:37 Narrative Exam GENERAL: AAOX3 NEURO: Strength 3/5 in RLE, preserved in UE, hyperreflexia in RLE. Right sided facial droop, flattened nasolabial fold. Loss of forehead wrinkling on the right, difficulty closing right eye. No nystagmus, intention tremor. Normal [id number] and [id number] test. HEENT: Moist mucosa. Eyes open, symmetrical, & clear CARDIO: No chest pain on palpation. Heart RRR, no obvious murmurs PULM: No noted coughing/dyspnea. Lungs CTA B/L, no R/W/R GI: Abdomen soft, nondistended, no pain on palpation. BSx4 URO/FRONT OFFICE AGENT:: No further abnormalities noted. SKIN/MSK/EXT: No wounds/rashes/edema/amputations, no pain on palpation. Pedal pulses present B/L Objective Labs 12/29/24 05:56 12/29/24 05:56 Labs: Laboratory Results - last 24 hr 12/28/24 05:44 WBC 8.7 RBC 4.69 Hgb 14.0 Hct 41.7 MCV 89 MCH 29.9 MCHC 33.6 RDW Std Deviation 42.9 Plt Count 289 Neut % (Auto) 74 Lymph % (Auto) 13 [place] % (Auto) 11 Eos % (Auto) 1 Baso % (Auto) 1 Neut # (Auto) 6.5 Lymph # (Auto) 1.2 [place] # (Auto) 1.0 H Eos # (Auto) 0.0 Baso # (Auto) 0.0 Immature Gran # (Auto) 0.02 H Absolute Nucleated RBC 0.00 Immature Gran % 0 Nucleated RBC % 0 Sodium 138 Potassium 3.8 D Chloride 107 Carbon Dioxide 22.9 Anion Gap 8 BUN 12 Creatinine 0.7 Estim Creat Clear Calc 68.0 eGFR > 60 BUN/Creatinine Ratio 17 Glucose 112 H Calculated Osmolality 276 Calcium 9.7 Corrected Calcium 9.7 Phosphorus 2.2 L Magnesium 1.5 L Total Bilirubin 0.5 AST 21 ALT 18 Alkaline Phosphatase 70 Total Protein 6.6 Albumin 4.0 Globulin 2.6 Albumin/Globulin Ratio 1.5 Quality Measures Quality Measures VTE prophylaxis Advance care planning discussed with:: patient Assessment & Plan Assessment Current Active Medications: Generic Name Dose Route Start Last Admin Trade Name Freq PRN Reason Stop Dose Admin Acetaminophen 650 mg 12/26/24 15:37 Acetaminophen 325 Mg Tablet PO 01/25/25 15:36 Q6H PRN Fever >101.5 Albuterol/Ipratropium 3 ml 12/26/24 16:20 Albuterol/Ipratropium (Duoneb) Rt Adalgisa 3 Ml Nebu INH 01/25/25 18:59 Q4HRRT PRN Shortness of breath or wheezing Amlodipine Besylate 10 mg 12/27/24 15:15 12/28/24 08:37 Amlodipine Besylate 5 Mg Tablet PO 01/26/25 15:14 10 mg QDAY TAI Administration Aspirin 81 mg 12/29/24 09:00 Aspirin Ec 81 Mg Tabec PO 01/28/25 08:59 QDAY TAI Atorvastatin Calcium 80 mg 12/26/24 21:00 12/27/24 20:21 Atorvastatin Calcium 20 Mg Tablet PO 01/25/25 20:59 80 mg HS TAI Administration Clopidogrel Bisulfate 75 mg 12/28/24 10:00 12/28/24 10:50 Clopidogrel Bisulfate 75 Mg Tablet PO 01/27/25 09:59 75 mg QDAY TAI Administration Dextrose 25 ml 12/26/24 15:58 Dextrose 50%-Water Inj 50 Ml Syringe IV 01/25/25 15:57 Q15MIN PRN BG 50-70 responsive npo pt Dextrose 50 ml 12/26/24 15:58 Dextrose 50%-Water Inj 50 Ml Syringe IV 01/25/25 15:57 Q15MIN PRN BG <50 OR BG <70 & pt unresponsive Diltiazem HCl 180 mg 12/28/24 09:00 12/28/24 08:36 Diltiazem Cd 180 Mg Capcr PO 01/27/25 08:59 180 mg QDAY TAI Administration Fluoxetine HCl 40 mg 12/27/24 16:45 12/28/24 08:37 Fluoxetine Hcl 10 Mg Capsule PO 01/26/25 16:44 40 mg QDAY TAI Administration Glucagon 1 mg 12/26/24 15:58 Glucagon Inj 1 Mg Vial IM Q15MIN PRN BG <70, and no IV access Potassium Phosphate 15 mmol in 250 mls @ 62.5 mls/hr 12/28/24 07:37 12/28/24 08:35 Pot Phos 15 Mmol In Ns 250 Ml IV 12/28/24 15:36 62.5 mls/hr Q4H TAI Administration Insulin Human Lispro 0 unit 12/26/24 17:00 12/28/24 08:35 Insulin Lispro (Admelog) 1 Unit/0.01 Ml Unit SC 01/25/25 16:59 Not Given AC [facility] Protocol Loratadine 10 mg 12/27/24 16:33 12/28/24 09:00 Loratadine 10 Mg Tablet PO 01/26/25 16:32 10 mg QDAY PRN Administration allergic symptoms Lorazepam 2 mg 12/27/24 15:25 Lorazepam 2 Mg/Ml Vial IVP 01/01/25 15:24 X1 PRN Anxiety, Give before MRI Lorazepam 0.5 mg 12/27/24 16:33 12/28/24 10:50 Lorazepam 0.5 Mg Tablet PO 01/01/25 16:32 0.5 mg Q8H PRN Administration anxiety Ondansetron HCl 4 mg 12/26/24 11:46 Ondansetron Inj 2 Mg/Ml Inj 2 Ml IV 01/25/25 11:45 Q4HR PRN NAUSEA OR VOMITING Plan Summary: The patient is a 69year old female with a past medical history of hypertension, hyperlipidemia, type 2 DM, COPD, RCC s/p right sided nephrectomy, CVA, newly diagnosed small cell lung carinoma who presented to the ED on 12/26/2024 with right sided weakness that worsened two days prior to presentation. Admitted for CVA rule out. #Right sided weakness #Facial nerve palsy #Acute CVA rule out The patient presented with right-sided weakness of about 4 days duration, minute progressive worsening over the last 2 days. She reports that her oncologist suspects that you might be complication of her recently diagnosed lung disor cancer. She reports that initially started as very minimal weakness, however she was still able to ambulate appropriately but in the last week she has been unable to walk. Additionally, patient endorsed right-sided facial weakness and concomitance droop. In ED, the patient had a head CT and CT which were negative. Pending MRI. She was started on aspirin, statin and Plavix. Plan: -Pending MRI and echo -Continue aspirin, plavix and statin -Physical therapy -Will consider antivirals and steroids for Alexandra's palsy #Small cell lung carcinoma #History of renal cell carcinoma status post nephrectomy #Primary hypertension #History of type II DM #History of COPD - Management per primary team Case was discussed with attending physician, Dr Mg Quach MD PGY-1 Disclaimer: This note was dictated by speech recognition. Minor errors in wound specialist may be present due to voice recognition software. Attending Provider Attestation/Addendum I personally have seen and examined the patient at the bedside and I agree with resident's findings, assessment and plan of care. Continue with the current management.
[2024-12-28] MEDS: LORazepam 2 MG/ML VIAL IVP (15:21)
--- NOTE | 2024-12-28 15:43 | ECHO_ITS ---
Transthoracic Echo Report Ht (in): 63 Wt (lb): 139 Exam Location: Portable Status: Inpatient C[employer] Finishing Supervisor: COPELAND Rebecca^^^^ Indications: Procedure Performed: BP: 118 / 73 HR: 98 Technical Quality: Fair MEASUREMENTS (Male / Female) Normal Values 2D ECHO LV Diastolic Diameter PLAX 3.5 cm 4.2 - 5.9 / 3.9 - 5.3 cm LV Systolic Diameter PLAX 2.8 cm IVS Diastolic Thickness 1.5 cm 0.6 - 1.0 / 0.6 - 0.9 cm LVPW Diastolic Thickness 1.5 cm 0.6 - 1.0 / 0.6 - 0.9 cm LV Relative Wall Thickness 0.9 LVOT Diameter 1.9 cm Aortic Root Diameter 3.6 cm LA Systolic Diameter LX 4.8 cm 3.0 - 4.0 / 2.7 - 3.8 cm LV Ejection Fraction MOD 4C 63.3 % LV Cardiac Index MOD 4C 3367.7 cm?/min?m? LV Ejection Fraction 4C AL 64.8 % LV Cardiac Index 4C AL 3611.1 cm?/min?m? LA Volume Index 46.8 cm?/m? 16 - 28 cm?/m? DOPPLER AV Peak Velocity 211.0 cm/s AV Peak Gradient 17.8 mmHg AV Mean Gradient 10.5 mmHg AV Velocity Time Integral 45.5 cm AI Peak Velocity 237.0 cm/s AI Peak Gradient 22.5 mmHg AI Pressure Half Time 414.0 ms LVOT Peak Velocity 143.0 cm/s LVOT Peak Gradient 8.2 mmHg LVOT Velocity Time Integral 45.3 cm LVOT Cardiac Index 7470.5 cm?/min?m? AV Area Cont Eq vti 2.8 cm? AV Area Cont Eq pk 1.9 cm? MV Peak Velocity 191.5 cm/s MV Peak Gradient 14.7 mmHg MV Mean Velocity 107.5 cm/s MV Mean Gradient 5.5 mmHg MV Area PHT 4.5 cm? MR Peak Velocity 587.0 cm/s MR Peak Gradient 137.8 mmHg Mitral E Point Velocity 104.0 cm/s Mitral A Point Velocity 192.0 cm/s Mitral E to A Ratio 0.5 LV E' Lateral Velocity 6.7 cm/s Mitral E to LV E' Lateral Ratio 15.5 LV E' Septal Velocity 7.3 cm/s Mitral E to LV E' Septal Ratio 14.1 TR Peak Velocity 294.7 cm/s TR Peak Gradient 34.7 mmHg PV Peak Velocity 113.0 cm/s PV Peak Gradient 5.1 mmHg RVOT Peak Velocity 87.2 cm/s FINDINGS Left Ventricle The left ventricular wall thickness is mildly increased. The left ventricular ejection fraction is normal, estimated at 55-60%. There is grade I diastolic dysfunction of the left ventricle (impaired relaxation pattern). Right Ventricle The right ventricle is normal in size and systolic function. The estimated right ventricular systolic pressure, 36 mmHg. Left Atrium Mildly increased left atrial volume 46.8 mL/m?. Right Atrium The right atrium is normal by two-dimensional imaging, color flow and Doppler imaging with no structural abnormalities, no thrombus formation present. Atrial Septum The interatrial septum is normal to color flow Doppler and agitated saline imaging. Aorta The aorta is normal by two-dimensional, color flow and Doppler interrogation. Mitral Valve Mild thickening of the mitral valve leaflets. Mild mitral annular calcification. Mild mitral regurgitation. Aortic Valve Mild aortic valve stenosis, mean gradient 10.5 mmHg, AVILA 2.8 cm?. Tricuspid Valve There is mild tricuspid valve regurgitation. Pulmonic Valve Trivial pulmonic valve regurgitation. . Vessels The pulmonary artery appears normal. The inferior vena cava pulmonary and hepatic veins appear normal. Pericardium The pericardium is normal by two-dimensional imaging. There is no significant pericardial effusion. CONCLUSIONS indication: Stroke r/o LV appears normal EF 55-60%. mild LVH. Diastolic Dysfunction I RV appears normal with RVSP 36 mmHg. LA is mildly dilated. IAS is normal to color flow Doppler and agitated saline imaging. Mild MAC & MR Mild Mild TR Jm Darby (Electronically Signed) Final Date: 28 December 2024 16:43
[2024-12-28] MEDS: ATORVASTATIN CALCIUM 20 MG TABLET 80 MG PO (20:48)
[2024-12-29] VITALS (9 sets, daily range): BP systolic 108–148; BP diastolic 70–88; PULSE 77–93; RESP 17–94; TEMP 36.2–36.6; O2SAT 92–95; BMI 24.3; BMI 12.0
[2024-12-29] MEDS: MG HYD/AL HYD/SIME (Maalox Reg) SUSP 30 ML UDC PO ×2 (00:52→20:47)
[2024-12-29 06:16] LABS: Basophils # (Auto) 0.1 Thou/mm3 (0.0-0.2); Basophils % (Auto) 1 % (0-2.5); Eosinophils # (Auto) 0.1 Thou/mm3 (0.0-0.5); Eosinophils % (Auto) 1 % (0-10); Hematocrit 38.4 % (36.0-46.0); Hemoglobin 13.4 g/dL (12.0-16.0); Immature Granulocytes % (Auto) 0 % (0-0); Immature Granulocytes Auto 0.02 Thou/mm3 (0.00-0.00); Lymphocytes # (Auto) 1.3 Thou/mm3 (1.0-4.8); Lymphocytes % (Auto) 13 % (10-50); Mean Corpuscular HGB Conc 34.9 g/dl (31.0-37.0); Mean Corpuscular Hemoglobin 30.1 pg (25.0-35.0); Mean Corpuscular Volume 86 fL (80-100); Monocytes # (Auto) 1.1 Thou/mm3 (0.0-0.8); Monocytes % (Auto) 11 % (0-12); Neutrophils # (Auto) 7.4 Thou/mm3 (1.8-7.7); Neutrophils % (Auto) 75 % (37-80); Nucleated Red Blood Cell % 0 /100 WBC (0); Platelet Count 301 Thou/mm3 (140-440); RDW Standard Deviation 40.8 fL (36.4-46.3); Red Blood Count 4.45 Miln/mm3 (4.00-5.20); White Blood Count 9.9 Thou/mm3 (3.6-11.0)
[2024-12-29 06:41] LABS: Alanine Aminotransferase 15 U/L (10-49); Albumin, Serum 3.8 gm/dL (3.4-4.8); Albumin/Globulin Ratio 1.6 (1.2-2.2); Alkaline Phosphatase 69 U/L (46-116); Anion Gap 9 (7-16); Aspartate Amino Transferase 13 U/L (0-34); BUN/Creatinine Ratio 20 Ratio (12-20); Bilirubin,Total 0.5 mg/dL (0.3-1.2); Blood Urea Nitrogen 14 mg/dL (9-23); Calcium 9.4 mg/dL (8.3-10.6); Calcium (Corrected) 9.6 mg/dL (8.5-10.1); Carbon Dioxide 22.4 mMol/L (20.0-31.0); Chloride 107 mMol/L (98-107); Creatinine (Component) 0.7 mg/dL (0.6-1.3); Estimated Creatinine Clearance 65.9 mL/min (>60); Globulin 2.4 gm/dL (2.3-3.5); Glucose 137 mg/dL (74-106); Magnesium 2.1 mg/dL (1.6-2.6); Osmolality,Calculated 278 (275-295); Phosphorous 2.9 mg/dL (2.4-5.1); Sodium 138 mMol/L (136-145); Total Protein 6.2 gm/dL (5.7-8.2); eGFR > 60 See Note
[2024-12-29] MEDS: FLUoxetine HCL 10 MG CAPSULE 40 MG PO (08:16)
[2024-12-29] MEDS: lorataDINE 10 MG TABLET PO (08:16)
[2024-12-29] MEDS: ASPIRIN EC 81 MG TABEC PO (08:16)
[2024-12-29] MEDS: DILTIAZEM CD 180 MG CAPCR PO (08:17)
[2024-12-29] MEDS: amLODIPine BESYLATE 5 MG TABLET 10 MG PO (08:17)
[2024-12-29] MEDS: CLOPIDOGREL BISULFATE 75 MG TABLET PO (08:17)
[2024-12-29] MEDS: LORazepam 0.5 MG TABLET PO ×2 (08:22→20:48)
--- NOTE | 2024-12-29 10:29 | PD.RESPRO ---
Documentation for date of: 12/29/24 Subjective Subjective Interval history: Patient seen and examined at bedside. No acute overnight events. Patient reports no change in her symptoms including weakness. MRI was done yesterday and was negative except for some microvascular changes. She continues to have a right facial droop consistent with LMN lesion as well as weakness in right lower extremity. Exam Vital Signs Temp Pulse Resp BP Pulse Ox O2 Del Method O2 Flow Rate 97.8 F 86 18 132/82 H 94 L Room Air 2 12/29/24 08:00 12/29/24 08:18 12/29/24 08:18 12/29/24 08:17 12/29/24 08:00 12/29/24 08:00 12/28/24 07:59 FiO2 95 12/26/24 15:37 Narrative Exam GENERAL: AAOX3 NEURO: Strength 3/5 in RLE, preserved in UE, hyperreflexia in RLE. Right sided facial droop, flattened nasolabial fold. Loss of forehead wrinkling on the right, difficulty closing right eye. No nystagmus, intention tremor. Normal mzdxuh-ch-chgo and gaki-lq-gxtu test. HEENT: Moist mucosa. Eyes open, symmetrical, & clear CARDIO: No chest pain on palpation. Heart RRR, no obvious murmurs PULM: No noted coughing/dyspnea. Lungs CTA B/L, no R/W/R GI: Abdomen soft, nondistended, no pain on palpation. BSx4 URO/ONLINE JOURNALIST:: No further abnormalities noted. SKIN/MSK/EXT: No wounds/rashes/edema/amputations, no pain on palpation. Pedal pulses present B/L Objective Labs 12/29/24 05:56 12/29/24 05:56 Labs: Laboratory Results - last 24 hr 12/29/24 05:56 WBC 9.9 RBC 4.45 Hgb 13.4 Hct 38.4 MCV 86 MCH 30.1 MCHC 34.9 RDW Std Deviation 40.8 Plt Count 301 Neut % (Auto) 75 Lymph % (Auto) 13 [place] % (Auto) 11 Eos % (Auto) 1 Baso % (Auto) 1 Neut # (Auto) 7.4 Lymph # (Auto) 1.3 [place] # (Auto) 1.1 H Eos # (Auto) 0.1 Baso # (Auto) 0.1 Immature Gran # (Auto) 0.02 H Absolute Nucleated RBC 0.00 Immature Gran % 0 Nucleated RBC % 0 Sodium 138 Potassium 4.0 Chloride 107 Carbon Dioxide 22.4 Anion Gap 9 BUN 14 Creatinine 0.7 Estim Creat Clear Calc 65.9 eGFR > 60 BUN/Creatinine Ratio 20 Glucose 137 H Calculated Osmolality 278 Calcium 9.4 Corrected Calcium 9.6 Phosphorus 2.9 Magnesium 2.1 Total Bilirubin 0.5 AST 13 ALT 15 Alkaline Phosphatase 69 Total Protein 6.2 Albumin 3.8 Globulin 2.4 Albumin/Globulin Ratio 1.6 Quality Measures Quality Measures VTE prophylaxis Advance care planning discussed with:: patient Assessment & Plan Assessment Current Active Medications: Generic Name Dose Route Start Last Admin Trade Name Freq PRN Reason Stop Dose Admin Acetaminophen 650 mg 12/26/24 15:37 Acetaminophen 325 Mg Tablet PO 01/25/25 15:36 Q6H PRN Fever >101.5 Albuterol/Ipratropium 3 ml 12/26/24 16:20 Albuterol/Ipratropium (Duoneb) Rt Adalgisa 3 Ml Nebu INH 01/25/25 18:59 Q4HRRT PRN Shortness of breath or wheezing Amlodipine Besylate 10 mg 12/27/24 15:15 12/29/24 08:17 Amlodipine Besylate 5 Mg Tablet PO 01/26/25 15:14 10 mg QDAY TAI Administration Aspirin 81 mg 12/29/24 09:00 12/29/24 08:16 Aspirin Ec 81 Mg Tabec PO 01/28/25 08:59 81 mg QDAY TAI Administration Atorvastatin Calcium 80 mg 12/26/24 21:00 12/28/24 20:48 Atorvastatin Calcium 20 Mg Tablet PO 01/25/25 20:59 80 mg HS TAI Administration Clopidogrel Bisulfate 75 mg 12/28/24 10:00 12/29/24 08:17 Clopidogrel Bisulfate 75 Mg Tablet PO 01/27/25 09:59 75 mg QDAY TAI Administration Dextrose 25 ml 12/26/24 15:58 Dextrose 50%-Water Inj 50 Ml Syringe IV 01/25/25 15:57 Q15MIN PRN BG 50-70 responsive npo pt Dextrose 50 ml 12/26/24 15:58 Dextrose 50%-Water Inj 50 Ml Syringe IV 01/25/25 15:57 Q15MIN PRN BG <50 OR BG <70 & pt unresponsive Diltiazem HCl 180 mg 12/28/24 09:00 12/29/24 08:17 Diltiazem Cd 180 Mg Capcr PO 01/27/25 08:59 180 mg QDAY TAI Administration Fluoxetine HCl 40 mg 12/27/24 16:45 12/29/24 08:16 Fluoxetine Hcl 10 Mg Capsule PO 01/26/25 16:44 40 mg QDAY TAI Administration Glucagon 1 mg 12/26/24 15:58 Glucagon Inj 1 Mg Vial IM Q15MIN PRN BG <70, and no IV access Insulin Human Lispro 0 unit 12/26/24 17:00 12/29/24 08:18 Insulin Lispro (Admelog) 1 Unit/0.01 Ml Unit SC 01/25/25 16:59 Not Given AC [facility] Protocol Loratadine 10 mg 12/27/24 16:33 12/29/24 08:16 Loratadine 10 Mg Tablet PO 01/26/25 16:32 10 mg QDAY PRN Administration allergic symptoms Lorazepam 0.5 mg 12/27/24 16:33 12/29/24 08:22 Lorazepam 0.5 Mg Tablet PO 01/01/25 16:32 0.5 mg Q8H PRN Administration anxiety Ondansetron HCl 4 mg 12/26/24 11:46 Ondansetron Inj 2 Mg/Ml Inj 2 Ml IV 01/25/25 11:45 Q4HR PRN NAUSEA OR VOMITING Plan Summary: The patient is a 69year old female with a past medical history of hypertension, hyperlipidemia, type 2 DM, COPD, RCC s/p right sided nephrectomy, CVA, newly diagnosed small cell lung carinoma who presented to the ED on 12/26/2024 with right sided weakness that worsened two days prior to presentation. Admitted for CVA rule out. #Right sided weakness #Facial nerve palsy #Acute CVA rule out The patient presented with right-sided weakness of about 4 days duration, minute progressive worsening over the last 2 days. She reports that her oncologist suspects that you might be complication of her recently diagnosed lung disor cancer. She reports that initially started as very minimal weakness, however she was still able to ambulate appropriately but in the last week she has been unable to walk. Additionally, patient endorsed right-sided facial weakness and concomitant droop. In ED, the patient had a head CT and CT which were negative. Pending MRI. She was started on aspirin, statin and Plavix. MRI was done yesterday and was negative except for some microvascular changes. Echocardiogram- LV appears normal EF 55-60%. mild LVH. Diastolic Dysfunction I Plan: -Continue aspirin, plavix and statin -Follow up for EMG as an outpatient -Cleared for discharge from neurology standpoint #Small cell lung carcinoma #History of renal cell carcinoma status post nephrectomy #Primary hypertension #History of type II DM #History of COPD - Management per primary team Attending Provider Attestation/Addendum I personally have seen and examined the patient at the bedside and I agree with resident findings, assessment and plan of care. Reassurance given to the patient regarding the negative workup for the acute stroke even though she does have right lower extremity weakness for months we will do EMG nerve conduction study as an an outpatient. Added acyclovir and prednisone 60 mg a day for 5 days and then slow titration by 10 mg daily to completely off
--- NOTE | 2024-12-29 16:15 | PC.SS ---
SS follow up note; SS was contacted by Dr. Mcclendon reporting that she spoke to patient's daughter and patient's daughter Evelyn reported that they have changed their minds and would now want patient to discharge to a SNF. SS submitted. SS submitted SNF inquiry through [employer] platform.
--- NOTE | 2024-12-29 19:31 | ESPR_ITS ---
<Statement entered by Sherly Mendes MD - 01/04/25 13:20> I reviewed above note and agree with findings and plans. I have also personally examined the patient with medicine team and went over assessment and plan with medical team including recording studio intern and resident physician. <Statement entered by Trent Aj MD - 12/30/24 14:50> Senior Resident Attestation: I supervised/discussed management plan with recording studio intern physician Dr. Mcclendon, and was involved in the care of this patient. I personally saw and examined the patient and discussed the assessment and plan with the entire medicine team, including my attending. I agree with the assessment and plan as documented. Patient's condition remains unchanged, she continues to complain of left lower extremity weakness. Will discuss with neurology further course of treatment. Possible discharge tomorrow. Patient's care was discussed with attending physician, Dr. Mendes. Trent Aj MD PGY-2. Documentation for date of: 12/29/24 Subjective Subjective Interval history: No acute overnight events reported. Patient seen and examined at bedside this morning. Patient still continues to have right-sided weakness more prominent in the right lower extremity. And right-sided facial droop. Patient appears to be a little frustrated because she is unsure of her plans. Patient was initially planning on moving to [place] to be closer to family but is unsure if that is the decision she wants to go with. I spoke to the daughter Donna ross who stated that they have had a discussion with Ms. Arceo and they have come to conclusion that she did not want to move and would like to stay in town to complete her workup for the cancer as well as neurology workup for nerve conduction studies before making a move. And requested if social service can submit authorization for SNF. MRI is negative for any acute ischemic strokes. Patient has no other complaints patient has an appointment with Dr. Holliday January 12 for further workup for her right-sided weakness. Per neurology patient will be started on prednisone or acyclovir for right side facial droop secondary to Alexandra's palsy, and initial workup included nerve conduction studies outpatient. Patient daughter also stated that the have plans to do a PET scan through the cancer center as well as will set up outpatient appointment for Port-A-Cath to start chemotherapy with Dr. Bermudez. vitals and labs are within normal limits. Exam Vital Signs Temp Pulse Resp BP Pulse Ox O2 Del Method O2 Flow Rate 97.2 F 82 21 H 132/77 H 95 Room Air 2 12/29/24 16:00 12/29/24 16:00 12/29/24 16:00 12/29/24 16:00 12/29/24 16:00 12/29/24 16:00 12/28/24 07:59 FiO2 95 12/26/24 15:37 Narrative Exam GENERAL: A&Ox3 . Awake, Not in acute distress HEENT: Atraumatic, Normocephalic. mucous membranes moist. HEART: Normal Heart Sounds LUNGS: Clear to auscultation with no wheezing or crackles. ABDOMEN: soft, non-distended, non-tender, bowel sounds heard, no guarding or rebound tenderness SKIN: No Rash or ecchymoses EXTREMITIES: No edema, tenderness, able to move all 4 extremities, pedal pulses palpated NEURO:? ? MENTAL STATUS:?AAOx3 ? LANG/SPEECH: Fluent, intact naming, repetition & comprehension ? CRANIAL NERVES: ? II: Pupils equal and reactive, no RAPD,?normal visual field and fundus ? III, IV, : EOM intact, no gaze preference or deviation ? V: normal ? VII: Right side facial droop noted ? VIII: normal hearing to speech ? MOTOR: 5/5 in both upper extremities and 2/5 strength in right lower extremity, 5/5 strength in left lower extremity ? SENSORY: Normal to touch, temperature & pin prick in all extremities ? COORD: Normal finger to nose , no tremor Objective Labs 12/29/24 05:56 12/29/24 05:56 Labs: Laboratory Results - last 24 hr 12/29/24 05:56 WBC 9.9 RBC 4.45 Hgb 13.4 Hct 38.4 MCV 86 MCH 30.1 MCHC 34.9 RDW Std Deviation 40.8 Plt Count 301 Neut % (Auto) 75 Lymph % (Auto) 13 [place] % (Auto) 11 Eos % (Auto) 1 Baso % (Auto) 1 Neut # (Auto) 7.4 Lymph # (Auto) 1.3 [place] # (Auto) 1.1 H Eos # (Auto) 0.1 Baso # (Auto) 0.1 Immature Gran # (Auto) 0.02 H Absolute Nucleated RBC 0.00 Immature Gran % 0 Nucleated RBC % 0 Sodium 138 Potassium 4.0 Chloride 107 Carbon Dioxide 22.4 Anion Gap 9 BUN 14 Creatinine 0.7 Estim Creat Clear Calc 65.9 eGFR > 60 BUN/Creatinine Ratio 20 Glucose 137 H Calculated Osmolality 278 Calcium 9.4 Corrected Calcium 9.6 Phosphorus 2.9 Magnesium 2.1 Total Bilirubin 0.5 AST 13 ALT 15 Alkaline Phosphatase 69 Total Protein 6.2 Albumin 3.8 Globulin 2.4 Albumin/Globulin Ratio 1.6 Quality Measures Quality Measures VTE prophylaxis Advance care planning discussed with:: patient Assessment & Plan Assessment Current Active Medications: Generic Name Dose Route Start Last Admin Trade Name Freq PRN Reason Stop Dose Admin Acetaminophen 650 mg 12/26/24 15:37 Acetaminophen 325 Mg Tablet PO 01/25/25 15:36 Q6H PRN Fever >101.5 Albuterol/Ipratropium 3 ml 12/26/24 16:20 Albuterol/Ipratropium (Duoneb) Rt [place] 3 Ml Nebu INH 01/25/25 18:59 Q4HRRT PRN Shortness of breath or wheezing Amlodipine Besylate 10 mg 12/27/24 15:15 12/29/24 08:17 Amlodipine Besylate 5 Mg Tablet PO 01/26/25 15:14 10 mg QDAY TAI Administration Aspirin 81 mg 12/29/24 09:00 12/29/24 08:16 Aspirin Ec 81 Mg Tabec PO 01/28/25 08:59 81 mg QDAY TAI Administration Atorvastatin Calcium 80 mg 12/26/24 21:00 12/28/24 20:48 Atorvastatin Calcium 20 Mg Tablet PO 01/25/25 20:59 80 mg HS TAI Administration Clopidogrel Bisulfate 75 mg 12/28/24 10:00 12/29/24 08:17 Clopidogrel Bisulfate 75 Mg Tablet PO 01/27/25 09:59 75 mg QDAY TAI Administration Dextrose 25 ml 12/26/24 15:58 Dextrose 50%-Water Inj 50 Ml Syringe IV 01/25/25 15:57 Q15MIN PRN BG 50-70 responsive npo pt Dextrose 50 ml 12/26/24 15:58 Dextrose 50%-Water Inj 50 Ml Syringe IV 01/25/25 15:57 Q15MIN PRN BG <50 OR BG <70 & pt unresponsive Diltiazem HCl 180 mg 12/28/24 09:00 12/29/24 08:17 Diltiazem Cd 180 Mg Capcr PO 01/27/25 08:59 180 mg QDAY TAI Administration Fluoxetine HCl 40 mg 12/27/24 16:45 12/29/24 08:16 Fluoxetine Hcl 10 Mg Capsule PO 01/26/25 16:44 40 mg QDAY TAI Administration Glucagon 1 mg 12/26/24 15:58 Glucagon Inj 1 Mg Vial IM Q15MIN PRN BG <70, and no IV access Insulin Human Lispro 0 unit 12/26/24 17:00 12/29/24 17:53 Insulin Lispro (Admelog) 1 Unit/0.01 Ml Unit SC 01/25/25 16:59 Not Given AC TAI Protocol Loratadine 10 mg 12/27/24 16:33 12/29/24 08:16 Loratadine 10 Mg Tablet PO 01/26/25 16:32 10 mg QDAY PRN Administration allergic symptoms Lorazepam 0.5 mg 12/27/24 16:33 12/29/24 08:22 Lorazepam 0.5 Mg Tablet PO 01/01/25 16:32 0.5 mg Q8H PRN Administration anxiety Ondansetron HCl 4 mg 12/26/24 11:46 Ondansetron Inj 2 Mg/Ml Inj 2 Ml IV 01/25/25 11:45 Q4HR PRN NAUSEA OR VOMITING Plan Ms. Vega is a 69-year-old female with past medical history significant for hypertension, hyperlipidemia, COPD (not on home oxygen), type 2 diabetes, history of renal cell carcinoma status post right nephrectomy, history of ischemic stroke in 2019, newly diagnosed small cell lung carcinoma presented to the ED complaining of worsening right-sided weakness that has become more profound since . Pt is admitted for stroke rule out. #Right side weakness #Right side facial droop 2/2 to #Alexandra's Palsy #Acute CVA, ruled out #Hx. of acute CVA 07/2020 with no residual symptoms. #Hx. of hyperlipidemia. DDX: ischemic stroke, TIA, Lambert Eaton Syndrome in the setting of small cell lung carcinoma. -LWK: 12/25/2024 17:00:00. -NIHSS Score: 4. -Pt had ischemic stroke in July 2020 without residual deficits other than when she gets anxious she has slurred speech. -pre morbid rank scale: 4 Points = Moderately severe disability; unable to walk and attend to bodily needs without assistance. -Tele neuro consulted, recommendations appreciated. -Head CTA : No significant common carotid carotid bifurcation or internal carotid artery stenoses, Dominant left vertebral artery with no critical stenoses, No cerebral large vessel arterial occlusions. -Head CT : Negative for acute hemorrhage, mass effect or midline shift. -MRI with MRA brain- Negative for acute hemorrhage mass effect or midline shift, No acute infarct, Prominent chronic microvascular white matter change, No cerebral large vessel arterial occlusions -Echo with bubble study - negative bubble study, EF 55-60% Plan: - Neuro checks q4HR. - Keep head of bed elevated at 30 degrees. - Aspirin 325mg decreased to 81 mg daily and statin 80mg daily. - started on clopidogrel. -?limit sedating meds. - Euglycemia and Avoid Hyperthermia (PRN Acetaminophen). - PT and speech therapy ordered -In house neurologist Dr. Holliday consulted, appreciate recommendations. -For Alexandra's Palsy, Pt is started on Acyclovir 800mg TID for 10 days and Prednisone 60mg for 5 days and taper additional 5 days started 12/29- -Pending nerve conduction study outpatient on January 12 #Hypercalcemia 2/2- resolved #Small cell lung carcinoma. #Hx. of renal cell carcinoma s/p R. nephrectomy. -Pt has history of right renal cell carcinoma and underwent right nephrectomy without radiation or chemo. -Pt was found to have benign thyroid and left breast nodules. -In 11/2024 CT chest/abdomen/pelvis: Pulmonary lung masses, the largest 3.4 cm in the right upper lobe, highest on the differential list is lung carcinoma with metastatic mediastinal lymphadenopathy, 12mm pulmonary nodule in the left lower lobe and 8mm pulmonary nodule in the right lower lobe. Biopsy revealed small cell lung carcinoma. -On labs Ca is 10.6 likely due to small cell - Pt has consulted with radiation oncologist Dr. Bermudez at the [facility], However pt has opted out of starting chemotherapy here and rather move closer to family in [facility] and consult oncology there Plan: -monitor with daily labs and follow up outpatient with oncologist. #Primary hypertension. -home antihypertensive include diltiazem 180mg and Amlodipine 10mg daily. Plan: -Resumed home Amlodipine and diltiazem. #Non-Insulin dependent type 2 diabetes. -Pt's home medications include metformin 1000mg BID and glyburide 5 mg BID. -A1c 5.8 on 12/27. Plan: -Insulin sliding scale ordered with accu-checks ACHS. -home meds on hold. #Hx of COPD. -Pt is a former smoker and does not use home oxygen. -Pt uses trelegy inhaler at home once daily. Plan: -Duonebs ordered PRN. -Supplemental O2 as needed. #Hx. of anxiety and depression. -resumed home fluoxetine. Health Maintenance Disposition: telemetry. DVT Prophylaxis: SCD Qshift. GI Prophylaxis: not indicated. Diet: carb consistent low. Lines: Peripheral lines. Code status: DNR/DNI. Assessment and plan discussed with my senior resident Dr. Aj & attending physician Dr. Cinthya Mcclendon (PGY-1)- Internal medicine resident
[2024-12-29] MEDS: ATORVASTATIN CALCIUM 20 MG TABLET 80 MG PO (20:47)
[2024-12-29] MEDS: ACYCLOVIR 800 MG TABLET PO (23:24)
[2024-12-30] VITALS (8 sets, daily range): BP systolic 121–144; BP diastolic 66–86; PULSE 78–98; RESP 16–95; TEMP 36.2–37; O2SAT 91–94; BMI 24.4
--- NOTE | 2024-12-30 00:26 | PC.NURSE ---
2340 Will taking over pt. care. SBAR given
[2024-12-30] MEDS: ACYCLOVIR 800 MG TABLET PO (05:40)
[2024-12-30] MEDS: LORazepam 0.5 MG TABLET PO (05:45)
[2024-12-30] MEDS: ASPIRIN EC 81 MG TABEC PO (08:54)
[2024-12-30] MEDS: CLOPIDOGREL BISULFATE 75 MG TABLET PO (08:54)
[2024-12-30] MEDS: FLUoxetine HCL 10 MG CAPSULE 40 MG PO (08:55)
[2024-12-30] MEDS: amLODIPine BESYLATE 5 MG TABLET 10 MG PO (08:55)
[2024-12-30] MEDS: DILTIAZEM CD 180 MG CAPCR PO (08:56)
[2024-12-30] MEDS: lorataDINE 10 MG TABLET PO (09:01)
--- NOTE | 2024-12-30 09:06 | PC.SS ---
Addendum entered by Akanksha Ramirez 12/30/24 11:11: SS follow up note; SS received a call from Maricarmen from [facility] ETA to gateway will be for 1300. SS updated patient's nurse as well and Jenna from [employer]. SS will also update patient. Original Note: SS Follow up note; SS utilized [employer], through [employer] portal and downloaded [employer] form. SS Contacted patient's nurse Chris. SS also contacted Jenna from [employer].
--- NOTE | 2024-12-30 09:27 | ESDS_ITS ---
<Statement entered by Sherly Mendes MD - 01/06/25 09:28> I reviewed above note and agree with findings and plans. I have also personally examined the patient with medicine team and went over assessment and plan with medical team including intern product marketing manager and resident physician. Planned Discharge Date 12/30/24 DS: Providers Provider Date of admission: 12/26/24 15:37 Primary care physician: Wenceslao Ferrara MD Admitting Provider: Chelita Bustillos DO Attending Provider on Admission: Sherly Mendes MD Consults: 12/26/24 11:46 Consult to Neurology / Tele-Neurology Routine Comment: Consulting Provider: [facility] 12/26/24 15:45 Referral Physical Therapy Stat Comment: Physician Instructions: 12/26/24 15:53 Referral Speech Therapy Stat Comment: 12/26/24 15:55 Consult to Neurology / Tele-Neurology Stat Comment: stroke r/o Consulting Provider: Agapito Holliday Attending Provider on DC: Navneet Mcclendon MD Discharging Provider: Navneet Mcclendon MD DS: Diagnosis Problem List Completed Was Problem List Reviewed/Reconciled?: Yes Hospital Course Hospital Course Hospital course: Ms. Vega is a 69-year-old female with past medical history significant for hypertension, hyperlipidemia, COPD (not on home oxygen), type 2 diabetes, history of renal cell carcinoma status post right nephrectomy, history of ischemic stroke in 2020, newly diagnosed small cell lung carcinoma presented to [facility] ED complaining of worsening right-sided weakness right lower extremity weakness and right-sided facial droop, prompting an initial workup for acute cerebrovascular accident (CVA). Imaging studies, including CT and CTA of the head, as well as MRI, were performed and ruled out an acute stroke. The MRI revealed prominent chronic microvascular white matter changes, but no acute ischemic lesions or other occlusions were identified. 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 The patient was started on acyclovir and prednisone with a tapering regimen. In-house consultation with neurologist Dr. Holliday recommended further outpatient workup, including a nerve conduction study (EMG), to evaluate the patient?s ongoing neurological symptoms. The patient had previously been hospitalized for similar symptoms, which did not resolve during the current hospitalization, further suggesting the need for additional investigation. Additionally, the patient was recently diagnosed with small cell lung cancer, for which chemotherapy is planned at [facility]. Despite an initial plan to relocate closer to family, the patient has decided to remain in town to complete the necessary neurological workup and initiate cancer treatment. The patient is scheduled to follow up with Dr. Holliday (neurologist) on January [address] Bermudez (radiation oncologist) for outpatient care. Discharge Recommendations -Follow up with primary care within 2 weeks after discharge -Follow up outpatient with Dr. Holliday for nerve conduction study -Follow up out patient with radiation oncologist Dr. Bermudez outpatient for further work up -You have been prescribed acyclovir and prednisone with a taper for 10 days, please take medications as prescribed for Alexandra's palsy (right sided facial droop) -Take all your medications as prescribed -You have been prescribed blood thinner for 18 days, please notify your caregiver or medical staff if you have a fall or injury as it may increase risk of bleeding -If your symptoms return or worsen, please promptly return to the ED Hospitalization Diagnosis #Right side weakness #Right side facial droop 2/2 to #Alexandra's Palsy #Acute CVA, ruled out #Hx. of acute CVA 07/2020 with no residual symptoms. #Hx. of hyperlipidemia. #Hypercalcemia 2/2- resolved #Small cell lung carcinoma. #Hx. of renal cell carcinoma s/p R. nephrectomy. #Primary hypertension. #Non-Insulin dependent type 2 diabetes. #Hx of COPD. #Hx. of anxiety and depression. Assessment and plan discussed with my attending physician Dr. Cinthya Mcclendon (PGY-1)- Internal medicine resident Time Spent with Patient Time attestation: Total time spent providing and/or coordinating discharge services: Time spent: Greater than 30 minutes Exam Vital Signs Temp Pulse Resp BP Pulse Ox O2 Del Method O2 Flow Rate 97.4 F 90 20 144/86 H 94 L Room Air 2 12/30/24 08:00 12/30/24 08:56 12/30/24 08:00 12/30/24 08:56 12/30/24 08:00 12/30/24 08:00 12/28/24 07:59 FiO2 95 12/26/24 15:37 Narrative Exam GENERAL: A&Ox3 . Awake, Not in acute distress HEENT: Atraumatic, Normocephalic. mucous membranes moist. HEART: Normal Heart Sounds LUNGS: Clear to auscultation with no wheezing or crackles. ABDOMEN: soft, non-distended, non-tender, bowel sounds heard, no guarding or rebound tenderness SKIN: No Rash or ecchymoses EXTREMITIES: No edema, tenderness, able to move all 4 extremities, pedal pulses palpated NEURO:? ? MENTAL STATUS:?AAOx3 ? LANG/SPEECH: Fluent, intact naming, repetition & comprehension ? CRANIAL NERVES: ? II: Pupils equal and reactive, no RAPD,?normal visual field and fundus ? III, IV, : EOM intact, no gaze preference or deviation ? V: normal ? VII: Right side facial droop noted ? VIII: normal hearing to speech ? MOTOR: 5/5 in both upper extremities and 2/5 strength in right lower extremity, 5/5 strength in left lower extremity ? SENSORY: Normal to touch, temperature & pin prick in all extremities ? COORD: Normal finger to nose , no tremor Discharge Plan Plan Patient Disposition: er Skilled [facility] ([facility]NF) Care Plan Goals: -Follow up with primary care within 2 weeks after discharge -Follow up outpatient with Dr. Holliday for nerve conduction study -Follow up out patient with radiation oncologist Dr. Bermudez outpatient for further work up -You have been prescribed acyclovir and prednisone with a taper for 10 days, please take medications as prescribed for Alexandra's palsy (right sided facial droop) -Take all your medications as prescribed -You have been prescribed blood thinner for 18 days, please notify your caregiver or medical staff if you have a fall or injury as it may increase risk of bleeding -If your symptoms return or worsen, please promptly return to the ED Prescriptions/Referrals Prescriptions/Med Rec: New acyclovir 800 mg Tablet 800 mg PO TID 10 Days Qty: 30 0RF clopidogrel 75 mg Tablet 75 mg PO QDAY 18 Days Qty: 18 0RF prednisone 10 mg tablet 10 mg PO QDAY Qty: 21 0RF Taper: Prednisone Taper 40 mg DAILY for 3 Days and 0 Hour 20 mg DAILY for 3 Days and 0 Hour 10 mg DAILY for 3 Days and 0 Hour Continued fluoxetine 40 mg Capsule 40 mg PO QDAY glyburide 5 mg Tablet 5 mg PO BID metformin 1,000 mg Tablet 1,000 mg PO BID diltiazem HCl 180 mg Capsule,Ext.Rel 24h Degradable 180 mg PO QDAY Rx Instructions: diltiazem cd atorvastatin 40 mg tablet 40 mg PO HS aspirin [Adult Low Dose Aspirin] 81 mg tablet,delayed release (DR/EC) 81 mg PO QDAY loratadine [Allergy Relief (loratadine)] 10 mg tablet 10 mg PO QDAY PRN (Reason: allergic symptoms) amlodipine 10 mg tablet 10 mg PO QDAY lorazepam 0.5 mg tablet 0.5 mg PO Q8H PRN (Reason: anxiety) Patient Comments: TAKE 1 TABLET BY MOUTH EVERY DAY AT BEDTIME NEEDED FOR 30 DAYS montelukast 10 mg tablet 10 mg PO QDAY Patient Comments: TAKE 1 TABLET BY MOUTH EVERY DAY FOR 90 DAYS fluticasone propionate 50 mcg/actuation spray,suspension 1 spray INTRANASAL Q12H PRN (Reason: nasal congestion) Trelegy Ellipta 200-62.5-25 mcg blister with device 1 inh inhalation QDAY lactulose 10 gram/15 mL solution 10 g PO QDAY PRN (Reason: constipation) Qty: 1200 0RF nystatin 100,000 unit/gram powder 1 applic topical BID ondansetron HCl 8 mg tablet 8 mg PO TID PRN (Reason: nausea and vomiting) Nephro-Bella 0.8 mg tablet 1 tab PO QDAY Referrals: Wenceslao Ferrara MD [Primary Care Provider] - Agapito Holliday MD [Physician] - Patient/Caregiver Discharge Instructions Education Materials: Hypertension Stroke Link, Discharge Instructions for Str kira, Risk Factors for Stroke, Stroke Regaining Movement Print Language: Latvian Stand Alone Forms: Emiliana Award Info., Patient Portal Info Letter Discharge Order Discharge Orders: Discharge (Routine); Ordered 12/30/24 Ordered By: Navneet Mcclendon Quality Discharge Quality Measures VTE prophylaxis
[2024-12-30] MEDS: INSULIN LISPRO (AdmeLOG) 1 UNIT/0.01 ML UNIT SC (11:28)
--- NOTE | 2024-12-30 11:55 | PD.RESPRO ---
Documentation for date of: 12/30/24 Subjective Subjective Interval history: Patient seen and examined at bedside. No acute overnight events. Clinical and neurologic status has remained the same. Plan is to discharge the patient on acyclovir and prednisone at a lower dose as patient reported steroid-induced psychosis from using prednisone. W for 3 days, 20 mg for the 30s for ill discharge on prednisone starting at 40 mg last 2 days and then stopped. As patient will need SNF, will be monitored for steroid-induced hyperglycemia and psychosis. Otherwise, continue on aspirin and statin, follow outpatient for EMG. Exam Vital Signs Temp Pulse Resp BP Pulse Ox O2 Del Method O2 Flow Rate 97.4 F 90 20 144/86 H 94 L Room Air 2 12/30/24 08:00 12/30/24 08:56 12/30/24 08:00 12/30/24 08:56 12/30/24 08:00 12/30/24 08:00 12/28/24 07:59 FiO2 95 12/26/24 15:37 Narrative Exam GENERAL: AAOX3 NEURO: Strength 3/5 in RLE, preserved in UE, hyperreflexia in RLE. Right sided facial droop, flattened nasolabial fold. Loss of forehead wrinkling on the right, difficulty closing right eye. No nystagmus, intention tremor. Normal yrupxm-[id number]-adie and hiis-vj-gspw test. HEENT: Moist mucosa. Eyes open, symmetrical, & clear CARDIO: No chest pain on palpation. Heart RRR, no obvious murmurs PULM: No noted coughing/dyspnea. Lungs CTA B/L, no R/W/R GI: Abdomen soft, nondistended, no pain on palpation. BSx4 URO/GROOMING ASSISTANT:: No further abnormalities noted. SKIN/MSK/EXT: No wounds/rashes/edema/amputations, no pain on palpation. Pedal pulses present B/L Objective Labs 12/29/24 05:56 12/29/24 05:56 Quality Measures Quality Measures VTE prophylaxis Advance care planning discussed with:: patient Assessment & Plan Assessment Current Active Medications: Generic Name Dose Route Start Last Admin Trade Name Freq PRN Reason Stop Dose Admin Acetaminophen 650 mg 12/26/24 15:37 Acetaminophen 325 Mg Tablet PO 01/25/25 15:36 Q6H PRN Fever >101.5 Acyclovir 800 mg 12/29/24 22:45 12/30/24 05:40 Acyclovir 800 Mg Tablet PO 01/05/25 22:44 800 mg TID TAI Administration Albuterol/Ipratropium 3 ml 12/26/24 16:20 Albuterol/Ipratropium (Duoneb) Rt Adalgisa 3 Ml Nebu INH 01/25/25 18:59 Q4HRRT PRN Shortness of breath or wheezing Amlodipine Besylate 10 mg 12/27/24 15:15 12/30/24 08:55 Amlodipine Besylate 5 Mg Tablet PO 01/26/25 15:14 10 mg QDAY TAI Administration Aspirin 81 mg 12/29/24 09:00 12/30/24 08:54 Aspirin Ec 81 Mg Tabec PO 01/28/25 08:59 81 mg QDAY TAI Administration Atorvastatin Calcium 80 mg 12/26/24 21:00 12/29/24 20:47 Atorvastatin Calcium 20 Mg Tablet PO 01/25/25 20:59 80 mg HS TAI Administration Clopidogrel Bisulfate 75 mg 12/28/24 10:00 12/30/24 08:54 Clopidogrel Bisulfate 75 Mg Tablet PO 01/27/25 09:59 75 mg QDAY TAI Administration Dextrose 25 ml 12/26/24 15:58 Dextrose 50%-Water Inj 50 Ml Syringe IV 01/25/25 15:57 Q15MIN PRN BG 50-70 responsive npo pt Dextrose 50 ml 12/26/24 15:58 Dextrose 50%-Water Inj 50 Ml Syringe IV 01/25/25 15:57 Q15MIN PRN BG <50 OR BG <70 & pt unresponsive Diltiazem HCl 180 mg 12/28/24 09:00 12/30/24 08:56 Diltiazem Cd 180 Mg Capcr PO 01/27/25 08:59 180 mg QDAY TAI Administration Fluoxetine HCl 40 mg 12/27/24 16:45 12/30/24 08:55 Fluoxetine Hcl 10 Mg Capsule PO 01/26/25 16:44 40 mg QDAY TAI Administration Glucagon 1 mg 12/26/24 15:58 Glucagon Inj 1 Mg Vial IM Q15MIN PRN BG <70, and no IV access Insulin Human Lispro 0 unit 12/26/24 17:00 12/30/24 11:28 Insulin Lispro (Admelog) 1 Unit/0.01 Ml Unit SC 01/25/25 16:59 3 unit AC TAI Administration Protocol Loratadine 10 mg 12/27/24 16:33 12/30/24 09:01 Loratadine 10 Mg Tablet PO 01/26/25 16:32 10 mg QDAY PRN Administration allergic symptoms Lorazepam 0.5 mg 12/27/24 16:33 12/30/24 05:45 Lorazepam 0.5 Mg Tablet PO 01/01/25 16:32 0.5 mg Q8H PRN Administration anxiety Ondansetron HCl 4 mg 12/26/24 11:46 Ondansetron Inj 2 Mg/Ml Inj 2 Ml IV 01/25/25 11:45 Q4HR PRN NAUSEA OR VOMITING Prednisone 60 mg 12/30/24 09:00 12/30/24 08:56 Prednisone 20 Mg Tablet PO 01/03/25 22:36 Not Given QDAY TAI Plan Summary: The patient is a 69year old female with a past medical history of hypertension, hyperlipidemia, type 2 DM, COPD, RCC s/p right sided nephrectomy, CVA, newly diagnosed small cell lung carinoma who presented to the ED on 12/26/2024 with right sided weakness that worsened two days prior to presentation. Admitted for CVA rule out. #Right sided weakness #Facial nerve palsy #Acute CVA rule out The patient presented with right-sided weakness of about 4 days duration, minute progressive worsening over the last 2 days. She reports that her oncologist suspects that you might be complication of her recently diagnosed lung disor cancer. She reports that initially started as very minimal weakness, however she was still able to ambulate appropriately but in the last week she has been unable to walk. Additionally, patient endorsed right-sided facial weakness and concomitant droop. In ED, the patient had a head CT and CT which were negative. Pending MRI. She was started on aspirin, statin and Plavix. MRI was done yesterday and was negative except for some microvascular changes. Echocardiogram- LV appears normal EF 55-60%. mild LVH. Diastolic Dysfunction I Plan: -Discharge on aspirin and statin -Prednisone taper starting from 40 mg as well as acyclovir. Monitor for steroid-induced hyperglycemia and psychosis. -Follow up for EMG as an outpatient -Cleared for discharge from neurology standpoint #Small cell lung carcinoma #History of renal cell carcinoma status post nephrectomy #Primary hypertension #History of type II DM #History of COPD - Management per primary team Attending Provider Attestation/Addendum I personally have seen and examined the patient and agreed with resident's findings, assessment and plan of care. Stable for dc on steroids with monitoring for psychosis and sugar level along with acyclovir. FU on 01/12/25in my office.
--- NOTE | 2024-12-30 12:30 | PC.NURSE ---
Dr. Holliday called for discharge but unable to reach, Dr. Quach at bedside to see patient. Dr. Hogan called due to pt daughter and pt not wanting prednisone due to side effects. Dr. Hogan verbalized will talk with seniors for possible prescription of hydroxyzine for side effects of prednisone. Discharge packet printed and given to EMS with pickup. Report given to GERALD Dougherty at [facility]. Discharge instructions also given to daughter at bedside with stroke education. Pt and daughter verbalized understanding of all follow ups and new prescriptions.
== END 2024-12-30 13:02 | disposition skilled nursing facility (03) | DRG 74 ==
LOC: SERX 13:15 → SERHOLD 15:46 → S2NX 12-27 00:14
PROVIDERS: Nurse Practitioner Family; Student in an Organized Health Care Education/Training Program; Admitting Provider Internal Medicine; Emergency Provider Emergency Medicine; PCP Internal Medicine; Visit Provider Internal Medicine
DX: G51.0 Bell's palsy (principal); C34.31 Malignant neoplasm of lower lobe, right bronchus or lung; C34.32 Malignant neoplasm of lower lobe, left bronchus or lung; R47.81 Slurred speech; E78.5 Hyperlipidemia, unspecified; Z90.5 Acquired absence of kidney; J44.9 Chronic obstructive pulmonary disease, unspecified; I10 Essential (primary) hypertension; E11.9 Type 2 diabetes mellitus without complications; E83.52 Hypercalcemia; N63.20 Unspecified lump in the left breast, unspecified quadrant; Z79.84 Long term (current) use of oral hypoglycemic drugs; F32.A Depression, unspecified; F09 Unspecified mental disorder due to known physiological condition; T38.0X5A Adverse effect of glucocorticoids and synthetic analogues, initial encounter; Z85.528 Personal history of other malignant neoplasm of kidney; Z66 Do not resuscitate; Z79.02 Long term (current) use of antithrombotics/antiplatelets; R26.2 Difficulty in walking, not elsewhere classified; Z79.82 Long term (current) use of aspirin; Z79.899 Other long term (current) drug therapy; Z87.891 Personal history of nicotine dependence; Z91.041 Radiographic dye allergy status; R59.0 Localized enlarged lymph nodes; Z86.73 Personal history of transient ischemic attack (TIA), and cerebral infarction without residual deficits
CPT/HCPCS: 36415; 70450; 70496; 70498; 70544; 80053; 80061; 80307; 81001; 83036; 83735; 84100; 84439; 84443; 84484; 84703; 85025; 85610; 85730; 87081; 87086; 92610; 93005; 93306; 97162; 99285; A4649; J1200; J1815; J2060; J2919; J3475; J3490; J7030; J7999; Q9967; A9270

== ENCOUNTER 2025-04-21 14:17 | Outpatient (RCR) | payer MEDICARE, MEDICAID, SELFPAY ==
--- NOTE | 2025-04-21 15:26 | CTCFLWUP_ITS ---
[facility] [address] [place], [place] [address] FOLLOW-UP NOTE Date: 04/21/2025 MR#: [id number] Name: LINNEA BUNDY : 1955 Dx: C34.11 Malignant neoplasm of upper lobe, right bronchus or lung Identification. Patient is 69-year-old lady who was admitted in November [address]-guided needle biopsy December 03, 2024 right upper lobe revealed small cell CA of the lung. Please see consult of 12/24/2024. Because the family wished to move her to the [facility], it was assumed that she would get workup and treatment there. PET/CT 04/08/2025 revealed focal 2.4 cm right upper lobe pulmonary mass with patchy increased uptake in peripheral posteromedial left lower lobe. Uptake in the colonic area also noted, which may be physiologic. Patient also is staying at [facility] unable to walk and cannot use the right arm. Also due to the regulations cannot get chemo while she is at the correction facility. Right now she is 5 or 6 ADL dependent and can only use her left hand for feeding. Patient is interested in hospice and will make the referral. Electronically signed by: Ricardo Bermudez M.D. 04/21/2025 3:24 PM
== END 2025-05-09 23:59 | disposition home or self-care (01) ==
LOC: SCTC 14:17
PROVIDERS: PCP Hospitalist; Referring Provider Radiology Therapeutic Radiology; Visit Provider Radiology Therapeutic Radiology
DX: C34.11 Malignant neoplasm of upper lobe, right bronchus or lung (principal)
CPT/HCPCS: 99213; G0463